=== PATIENT | male | born 1945 | race Caucasian/White ===

== ENCOUNTER 2020-09-02 07:36 | Inpatient (IN) ==
[2020-09-02] MEDS ORDERED: diphenhydrAMINE 50 MG/ML VIAL IV ONE (07:59)
[2020-09-02] MEDS ORDERED: morphine 4 MG/ML VIAL IV ONE (07:59)
[2020-09-02] MEDS ORDERED: 0.9 % SODIUM CHLORIDE 1,000 ML IV ONE ×2 (07:59→10:20)
[2020-09-02] MEDS ORDERED: PROCHLORPERAZINE 10 MG/2 ML VIAL IV ONE (07:59)
--- NOTE | 2020-09-02 08:30 | Emergency Department Note ---
Nausea/Vomiting/Diarrhea HPI General Chief complaint: Nausea/Vomiting/Diarrhea Stated complaint: Nausea/Vomiting x4 days Time Seen by Provider: 09/02/20 07:40 Source: patient and old records reviewed Mode of arrival: ambulatory Limitations: no limitations History of Present Illness HPI Narrative: Narrative: MD complaint: nausea, vomiting, diarrhea and abdominal pain Onset (ago): day(s) (4) Description of Vomiting: watery and bilious Description of Diarrhea: water Associated Abdominal Pain: Yes Location of pain: diffuse Severity: moderate Quality: cramping Consistency: colicky Improves with: none Worsens with: eating Associated symptoms: Reports cough Related Data Previous Rx's Medication Instructions Recorded meclizine 25 mg PO TIDP PRN #30 tab 09/10/15 levofloxacin 750 mg PO DAILY #5 tab 04/02/17 metronidazole 500 mg PO Q8 #15 tab 04/02/17 ondansetron HCl 4 mg PO Q4-6H PRN #20 tab 04/02/17 tamsulosin 0.4 mg PO QDAY #30 cap 04/02/17 Allergies Allergy/AdvReac Type Severity Reaction Status Date / Time No Known Drug Allergies Allergy Verified 03/31/17 13:22 Review of Systems ROS ROS Narrative: Narrative: Constitutional: Denies fever and chills Eyes: Denies vision change ENT ED: Denies ear pain and throat pain Cardiovascular: Denies chest pain and palpitations Respiratory: Reports cough; Denies shortness of breath Gastrointestinal: Reports abdominal pain, nausea, vomiting and diarrhea; Denies hematochezia, melena, hematemesis, acid reflux and heart burn Genitourinary: Denies dysuria and frequency Musculoskeletal: Denies back pain and joint swelling Integumentary: Denies rash and lesions Neurological: Denies headache and weakness Psychiatric: Denies anxiety and depression Endocrine: Denies fatigue and heat or cold intolerance Hematological/Lymphatic: Denies easy bleeding and easy bruising PFSH Narrative Patient History Narrative: Narrative: No alcohol tobacco or drug use Medical/Surgical/Family History All Active Problems (Updated 09/02/20 @ 11:35 by Mayito Chacko MD) Vertigo (Acute) Diverticulitis (Acute) Ureteral calculus, right (Acute) Acute renal insufficiency (Acute) Acute UTI (urinary tract infection) (Acute) Medical History (Updated 09/02/20 @ 11:35 by Mayito Chacko MD) Vertigo Social History Smoking Status: Never smoker Exam Narrative Narrative: Narrative: General Limitations: no limitations General appearance: Present alert and in no apparent distress Head Head: Present atraumatic and normocephalic Eye Eye: Present normal appearance, PERRL and EOMI; Absent scleral icterus and conjunctival injection ENT ENT: Present normal oropharynx and mucous membranes moist Neck Neck: Present trachea midline; Absent lymphadenopathy and thyromegaly Chest Chest: Present symmetric chest wall rise Respiratory Respiratory: Present normal lung sounds bilaterally; Absent respiratory distress, wheezes, stridor, accessory muscle use and prolonged expiratory phase Cardiovascular Cardiovascular: Present regular rate and normal rhythm; Absent systolic murmur and diastolic murmur Adbominal Abdominal: Present soft, tenderness and hypoactive bowel sounds; Absent distention, guarding, rebound, rigidity, organomegaly and mass Extremities Extremities: Present full ROM; Absent tenderness, pedal edema, pretibial edema and calf tenderness Back Back: Absent CVA tenderness (R), CVA tenderness (L) and spinous process tenderness Neurological Neurological: Present alert and oriented X3 Psychiatric Psychiatric: Present normal affect and normal mood Skin Skin: Present warm (WNL) and dry Course Vital Signs Vital signs: Vital Signs Temperature 98.1 F 09/02/20 07:36 Pulse Rate 88 09/02/20 07:36 Respiratory Rate 20 09/02/20 07:36 Blood Pressure 137/78 09/02/20 07:36 Pulse Oximetry (%) 99 09/02/20 07:36 Temperature 98.1 F 09/02/20 07:36 Pulse Rate 78 09/02/20 11:27 Respiratory Rate 16 09/02/20 10:49 Blood Pressure 148/74 09/02/20 11:18 Pulse Oximetry (%) 100 09/02/20 11:27 [facility] MDM Narrative Medical decision making narrative: Narrative: Patient's white count is elevated the patient has pyuria and will received IV fluids and IV antibiotics after blood cultures. Patient's renal CT shows bilateral hydronephrosis with multiple kidney stones consulted with urology who graciously agreed to evaluate the patient in the emergency department requested admission for IV hydration and will plan to procedure to remove stones discussed patient Dr. Rizo hospitalist who graciously agreed to admission diagnosis is nephro nephro nephrolithiasis and acute renal insufficiency. Differential Diagnosis Differential Diagnosis: Kidney stones, infected kidney stone, small bowel obstruction, large bowel, Lab Data Result diagrams: 09/02/20 08:28 09/02/20 08:28 Labs: Lab Results 09/02/20 09/02/20 09/02/20 Range/Units 08:28 08:28 08:49 WBC 18.3 H (4.5-11.0) K/mcL RBC 5.18 (4.50-5.90) M/mcL Hgb 14.9 (13.5-16.5) g/dL Hct 45.1 (41.0-55.0) % MCV 87.1 (80.0-100.0) fL MCH 28.8 (26.0-34.0) pg MCHC 33.0 (31.0-36.0) g/dL RDW 12.4 (11.5-14.5) % Plt Count 362 (140-440) K/mcL MPV 10.2 (7.4-10.4) fL Neut % (Auto) 88.5 H (38.0-78.0) % Lymph % (Auto) 5.1 L (15.0-49.0) % [place] % (Auto) 6.0 (1.0-12.0) % Eos % (Auto) 0.1 (0.0-7.0) % Baso % (Auto) 0.3 (0.0-2.0) % Lymph # (Auto) 0.93 L (1.50-4.80) K/mcL [place] # (Auto) 1.10 H (0.10-0.90) K/mcL Eos # (Auto) 0.01 (0.00-0.70) K/mcL Baso # (Auto) 0.05 (0.00-0.20) K/mcL Absolute Neutrophils 16.20 H (1.80-8.00) K/mcL Sodium 132 L (133-145) mmol/L Potassium 3.7 (3.3-5.1) mmol/L Chloride 95 L (96-108) mmol/L Carbon Dioxide 25 (22-30) mmol/L Anion Gap 12.0 (8.0-16.0) BUN 31 H (8-23) mg/dL Creatinine 2.0 H (0.7-1.2) mg/dL POC Creatinine 2.3 H (0.6-1.2) mg/dL GFR Calculation 32 Glucose 124 H (70-105) mg/dL Calcium 9.6 (8.6-10.4) mg/dL Total Bilirubin 2.0 H (0.1-1.0) mg/dL AST 24 (<40) U/L ALT 15 (<40) U/L Alkaline Phosphatase 87 (39-117) U/L Total Protein 8.2 (5.9-8.4) gm/dL Albumin 4.4 (3.2-5.2) gm/dL Globulin 3.8 H (2.2-3.7) gm/dL Albumin/Globulin Ratio 1.2 (1.0-2.3) Lipase 44 (7-60) U/L Urine Color Urine Appearance (Clear) Urine pH (5.0-9.0) Ur Specific [place] (1.000-1.035) Urine Protein (Negative) mg/dL Urine Glucose (UA) (Negative) mg/dL Urine Ketones (Negative) mg/dL Urine Occult Blood (Negative) mg/dL Urine Nitrate (Negative) Urine Bilirubin (Negative) mg/dL Urine Urobilinogen mg/dL Ur Leukocyte Esterase (Negative) /ug Urine RBC (0-3) /hpf Urine WBC (0-4) /hpf Ur Squamous Epith Cells (0-4) /hpf Urine Bacteria (0) /hpf Hyaline Casts (0-2) /lph Granular Casts (0-0) /lph Urine Mucus (None) /hpf Ur Culture Indicated? 09/02/20 Range/Units 10:10 WBC (4.5-11.0) K/mcL RBC (4.50-5.90) M/mcL Hgb (13.5-16.5) g/dL Hct (41.0-55.0) % MCV (80.0-100.0) fL MCH (26.0-34.0) pg MCHC (31.0-36.0) g/dL RDW (11.5-14.5) % Plt Count (140-440) K/mcL MPV (7.4-10.4) fL Neut % (Auto) (38.0-78.0) % Lymph % (Auto) (15.0-49.0) % [place] % (Auto) (1.0-12.0) % Eos % (Auto) (0.0-7.0) % Baso % (Auto) (0.0-2.0) % Lymph # (Auto) (1.50-4.80) K/mcL [place] # (Auto) (0.10-0.90) K/mcL Eos # (Auto) (0.00-0.70) K/mcL Baso # (Auto) (0.00-0.20) K/mcL Absolute Neutrophils (1.80-8.00) K/mcL Sodium (133-145) mmol/L Potassium (3.3-5.1) mmol/L Chloride (96-108) mmol/L Carbon Dioxide (22-30) mmol/L Anion Gap (8.0-16.0) BUN (8-23) mg/dL Creatinine (0.7-1.2) mg/dL POC Creatinine (0.6-1.2) mg/dL GFR Calculation Glucose (70-105) mg/dL Calcium (8.6-10.4) mg/dL Total Bilirubin (0.1-1.0) mg/dL AST (<40) U/L ALT (<40) U/L Alkaline Phosphatase (39-117) U/L Total Protein (5.9-8.4) gm/dL Albumin (3.2-5.2) gm/dL Globulin (2.2-3.7) gm/dL Albumin/Globulin Ratio (1.0-2.3) Lipase (7-60) U/L Urine Color Yellow Urine Appearance Cloudy A (Clear) Urine pH 5.0 (5.0-9.0) Ur Specific [place] 1.015 (1.000-1.035) Urine Protein 30 A (Negative) mg/dL Urine Glucose (UA) Negative (Negative) mg/dL Urine Ketones 5 A (Negative) mg/dL Urine Occult Blood >=1.0 A (Negative) mg/dL Urine Nitrate Negative (Negative) Urine Bilirubin Negative (Negative) mg/dL Urine Urobilinogen Negative mg/dL Ur Leukocyte Esterase 500 A (Negative) /ug Urine RBC 51 H (0-3) /hpf Urine WBC 125 H (0-4) /hpf Ur Squamous Epith Cells 0 (0-4) /hpf Urine Bacteria Few A (0) /hpf Hyaline Casts 12 H (0-2) /lph Granular Casts 2 H (0-0) /lph Urine Mucus Mod A (None) /hpf Ur Culture Indicated? yes Discharge Plan Patient/Caregiver Discharge Instructions Pt seen by ANALYTICS SPECIALIST/PA only: No Clinical Impression: Ureteral calculus, right, Acute renal insufficiency, Acute UTI (urinary tract infection) Patient Disposition: Xfer As Inpt ([facility]) Follow up with: Migdalia Lei ARNP [Primary Care Provider] - Prescriptions: No Action meclizine 25 MG Tablet 25 mg PO TIDP PRN (Reason: Vertigo) Qty: 30 RF: 0 hydrocodone-acetaminophen 1 TAB tablet 1 tab PO Q4HP PRN (Reason: Pain) Qty: 20 RF: 0 metronidazole 500 MG tablet 500 mg PO Q8 Qty: 15 RF: 0 tamsulosin 0.4 MG capsule 0.4 mg PO QDAY Qty: 30 RF: 0 levofloxacin 750 MG tablet 750 mg PO DAILY Qty: 5 RF: 0 ondansetron HCl 4 MG tablet 4 mg PO Q4-6H PRN (Reason: Nausea And Vomiting) Qty: 20 RF: 0
[2020-09-02 09:09] LABS: Basophils # (Auto) 0.05 K/mcL (0.00-0.20); Basophils % (Auto) 0.3 % (0.0-2.0); Eosinophils # (Auto) 0.01 K/mcL (0.00-0.70); Eosinophils % (Auto) 0.1 % (0.0-7.0); Hematocrit 45.1 % (41.0-55.0); Hemoglobin 14.9 g/dL (13.5-16.5); Lymphocytes # (Auto) 0.93 K/mcL (1.50-4.80); Lymphocytes % (Auto) 5.1 % (15.0-49.0); Mean Cell Volume 87.1 fL (80.0-100.0); Mean Platelet Volume 10.2 fL (7.4-10.4); Neutrophils % (Auto) 88.5 % (38.0-78.0); Platelet Count 362 K/mcL (140-440); RBC 5.18 M/mcL (4.50-5.90); Red Cell Distribution Width 12.4 % (11.5-14.5); WBC 18.3 K/mcL (4.5-11.0)
[2020-09-02 09:31] LABS: ALT/SGPT 15 U/L (<40); AST/SGOT 24 U/L (<40); Albumin 4.4 gm/dL (3.2-5.2); Albumin/Globulin Ratio 1.2 (1.0-2.3); Alkaline Phosphatase 87 U/L (39-117); Blood Urea Nitrogen 31 mg/dL (8-23); Calcium 9.6 mg/dL (8.6-10.4); Carbon Dioxide 25 mmol/L (22-30); Chloride 95 mmol/L (96-108); Globulin 3.8 gm/dL (2.2-3.7); Glomerular Filtration Rate 32; Glucose 124 mg/dL (70-105)
--- NOTE | 2020-09-02 09:41 | Cat Scan Report ---
History: Abdominal pain, nausea and vomiting TECHNIQUE: The patient was imaged without oral or intravenous contrast at 2.5 mm intervals from the lung bases through the symphysis pubis. Sagittal and coronal reformats were created. The radiation exposure was limited using dose reduction technology. FINDINGS: Heart size is upper limits of normal. There are scattered plaques in left anterior descending coronary artery. Band of scar or discoid atelectasis is present in the lateral basal segment right lower lobe. Evaluation of abdominal organs without contrast is somewhat limited. The liver and spleen are normal in size and appear homogeneous. No abnormality seen within the gallbladder or bile ducts. Pancreas appears normal without evidence of mass or inflammation. There is chronic hyperplasia left adrenal. Right adrenal is normal. Moderate hydronephrosis is present in the right kidney and there is mild hydronephrosis in the left knee. Two nonobstructing calyceal stones are present in the right kidney involving the middle and lower thirds. The larger measures 7 x 7 mm. A less than 1 mm calyceal stone is seen in the midportion of the left kidney. In the middle third of the right ureter there is a nonobstructing stone which measures 5 x 7 mm. A smaller stone is seen further distally in the right ureter and the prior CT done on 03/31/17. The hydronephrosis in the right kidney is nearly the same today as it was in 2017. The hydronephrosis in left kidney is new. There is an exophytic 1.8 cm cyst located laterally in the lower pole the left kidney. No cyst or mass are seen in the right kidney. There are no stones in left ureter. Within the bladder there are three calculi. One is located near the tip of the left ureterovesical junction and it measures 6 x 9 mm. There are two stones near the tip of the right ureterovesical junction. The larger measures 8 x 11 mm. Bladder is smooth contour without evidence of a mass. There is moderate enlargement of the prostate which limits the bladder from the floor the pelvis. Patient has chronic low-grade diverticulitis in the sigmoid colon with stranding of surrounding fat. The inflammation in and around the sigmoid is milder today than it was in 2017. There are air-fluid levels in the transverse and descending colon and small intestine is nondistended. The appendix is noninflamed. No abscess or ascites are present. Incidentally noted is a small fat-containing left inguinal hernia. IMPRESSION: Bilateral hydronephrosis, right worse than left. 5 x 7 mm obstructing stone in the middle third of the right ureter. 6 x 9 mm stone at the left ureterovesical junction which may have passed into the bladder. Chronic low-grade sigmoid diverticulitis Dr. Chacko was called with the report Interpreted and Authenticated by: Chad Mcbride 09/02/20
[2020-09-02] MEDS ORDERED: morphine 2 MG/ML VIAL IV ONE (10:18)
[2020-09-02] MEDS ORDERED: ONDANSETRON 4 MG/2 ML VIAL IV ONE (10:20)
[2020-09-02 11:03] LABS: Appearance,Urine CLOUDY (Clear); Bacteria,Urine FEW /hpf (0); Bilirubin,Urine Negative (Negative); Color,Urine YELLOW; Culture Indicated,Urine yes; Glucose,Urine (UA) Negative (Negative); Ketones,Urine 5 mg/dL (Negative); Leukocyte Esterase,Urine 500 /ug (Negative); Mucus,Urine MOD /hpf; Nitrate,Urine Negative (Negative); Protein,Urine 30 mg/dL (Negative); Specific Gravity,Urine 1.015 (1.000-1.035); Urine Blood >=1.0 mg/dL (Negative); Urine Granular Cast 2 /lph (0-0); Urine Hyaline Cast 12 /lph (0-2); Urine RBC 51 /hpf (0-3); Urine Squamous Epithelial Cell 0 /hpf (0-4); Urine WBC 125 /hpf (0-4); Urobilinogen,Urine Negative
[2020-09-02] MEDS ORDERED: cefTRIAXone 1 GM VIAL IV ONE (11:29)
[2020-09-02] MEDS ORDERED: ACETAMINOPHEN 325 MG TABLET PO PRN ×2 (11:59→13:03)
[2020-09-02] MEDS ORDERED: morphine 4 MG/ML VIAL IV PRN (11:59)
[2020-09-02] MEDS ORDERED: HYDROcodone/APAP 5/325MG TABLET PO PRN ×2 (11:59→13:03)
[2020-09-02] MEDS ORDERED: ONDANSETRON 4 MG/2 ML VIAL IV PRN ×2 (11:59→13:03)
[2020-09-02] MEDS ORDERED: cefTRIAXone 1 GM in DEXTROSE 5% IN WATER 50 ML IV SCH (12:00)
[2020-09-02] MEDS ORDERED: 0.9 % SODIUM CHLORIDE 1,000 ML IV SCH (12:00)
[2020-09-02] MEDS ORDERED: traZODone HCL 50 MG TABLET PO PRN ×2 (12:04→13:03)
--- NOTE | 2020-09-02 12:11 | Internal Med History&Physical ---
HPI History of Present Illness Patient information: Note initiated : 09/02/20 at 12:06 pm Service Date, if different from initiated Date: [] Patient: Jean Judge a 74 y/o M admitted on for N/V x 4 Days. Chief complaint: Nausea, vomiting, right/lower abdominal pain History of present illness: Mr. Judge is a 74 year old M who presents the ED with complaints of nausea vomiting and lower abdominal pain. History is obt ained speaking with the patient as well as reviewing old records. He has an underlying history of hypertension, hypercholesterolemia and nephrolithiasis (admitted here for obstructing nephrolithiasis 04/2017, did not require intervention). He states at 430 Sunday morning he developed nausea and vomiting. He has had vomiting and retching for up to 30 minutes at a time intermittently throughout t he day since then. Is been mostly stomach contents, no blood. He also feels bloated with lower abdominal pain, which is also into his right side radiating around to his back. Over the last few days he has felt lightheaded and progressively weak. During this time he has maintained urine output, is noticed no hematuria but his volume of urine has decreased. He may have felt a bit chilled, has had no fever. He notes he has had similar attacks to these a couple times a year since his hospitalization here back in April 2017. Because of ongoing symptoms he presents to the ED. He is found to have significant leukocytosis of 18,000, acute kidney injury with creatinine 2.0, normal lactate, bilateral hydronephrosis with obstructing ureteral stone on the right and a stone on the left to UVP. He also has noted bladder stones and other stones within the kidney that are nonobstructing. Urinalysis was notable for significant pyuria and hematuria with few bacteria. He was seen by urology and is now being admitted for further management of obstructive nephrolithiasis, possible urinary tract infection. Constitutional Constitutional: Present anorexia, chills (Possible chills), lethargy and weakness; Absent fever(s) and night sweats EENT Eyes: Absent blurry vision, change in vision and diplopia Nose, mouth and throat: Present sore throat (Attributed to frequent emesis); Absent headache(s) and nasal congestion Cardiovascular Cardiovascular: Absent chest pain, dyspnea on exertion and edema Respiratory Respiratory: Present cough (With occasional whitish phlegm) and dyspnea (Mild) Gastrointestinal Gastrointestinal: Present as per HPI; Absent hematochezia and melena Genitourinary Genitourinary: as per HPI Musculoskeletal Musculoskeletal: Present back pain (Right CVA region); Absent joint swelling Integumentary Integumentary: Absent rash and unusual bruising Neurological Neurological: Absent focal weakness, numbness, sensory deficit and tingling Psychiatric Psychiatric: Absent depression Endocrine Endocrine: Absent polydipsia and polyuria Hematologic/Lymphatic Hematologic/Lymphatic: Absent easy bleeding and easy bruising PFSH PFSH All Active Problems (Updated 09/02/20 @ 12:10 by Sommer Nix MD) Diverticulitis (Chronic) Hypercholesteremia (Chronic) Hypertension (Chronic) Ureteral calculus, right (Acute) Acute renal insufficiency (Acute) Acute UTI (urinary tract infection) (Acute) Medical History (Updated 09/02/20 @ 12:10 by Sommer Nix MD) Cataracts, bilateral Diverticulitis Hypercholesteremia Hypertension Rheumatic fever Surgical History (Updated 09/02/20 @ 12:08 by Sommer Nix MD) History of cataract surgery Family History (Updated 09/02/20 @ 12:13 by Sommer Nix MD) Brother Nephrolithiasis Social History (Updated 09/02/20 @ 12:13 by Sommer Nix MD) lives independently: Yes smoking status: Never smoker alcohol intake frequency: holiday/special occasion only MEDS/ALLERGIES Home Medications and Allergies Home Medications Medication Instructions Recorded Confirmed Type atorvastatin 10 mg PO QHS 09/02/20 09/02/20 History ondansetron HCl 4 mg PO Q6H PRN 09/02/20 09/02/20 History Allergies Allergy/AdvReac Type Severity Reaction Status Date / Time No Known Drug Allergies Allergy Verified 03/31/17 13:22 EXAM Constitutional Vitals: Temp Pulse Resp BP Pulse Ox 98.1 F 81 16 164/86 98 09/02/20 07:36 09/02/20 11:55 09/02/20 10:49 09/02/20 11:55 09/02/20 11:55 GENERAL: Alert, oriented, tired appearing, nontoxic. Cooperative, appears stated age. HEENT: Atraumatic. PERRL at 3 mm, conjunctiva clear, no scleral icterus. Hearing grossly intact. Oropharynx with moist mucous membranes, no pharyngeal erythema or exudate. Tongue midline. NECK: Supple without meningismus, no thyromegaly RESPIRATORY: Breath sounds clear bilaterally without wheezes or rhonchi. Respiratory effort is unlabored. CARDIOVASCULAR: Regular rate and rhythm, no murmur gallop or rub. No peripheral edema. Carotid pulses 2+ without bruit. GI: Abdomen soft, mild suprapubic tenderness with mild tenderness along the right > left flanks. No guarding or rebound. Bowel sounds are present. MUSCULOSKELETAL: No CVA tenderness. No joint erythema or swelling, normal range of motion in all extremities. SKIN: Intact, warm, dry. No lesions. Skin turgor normal. NEUROLOGIC: Cranial nerves II through XII grossly intact. Muscle mass normal. Strength 5/5 in the upper and lower extremities. Sensation intact to light touch bilaterally. PSYCHIATRIC: Alert, oriented x3, normal mood and affect, normal insight. DATA Data Completed and Pending Labs: Labs from last 24 hours 09/02/20 09/02/20 09/02/20 12:05 10:10 08:49 WBC RBC Hgb Hct MCV MCH MCHC RDW Plt Count MPV Neut % (Auto) Lymph % (Auto) [place] % (Auto) Eos % (Auto) Baso % (Auto) Lymph # (Auto) [place] # (Auto) Eos # (Auto) Baso # (Auto) Absolute Neutrophils VBG Lactic Acid Pending Sodium Potassium Chloride Carbon Dioxide Anion Gap BUN Creatinine POC Creatinine 2.3 H GFR Calculation Glucose Calcium Total Bilirubin AST ALT Alkaline Phosphatase Total Protein Albumin Globulin Albumin/Globulin Ratio Lipase Urine Color Yellow Urine Appearance Cloudy A Urine pH 5.0 Ur Specific [place] 1.015 Urine Protein 30 A Urine Glucose (UA) Negative Urine Ketones 5 A Urine Occult Blood >=1.0 A Urine Nitrate Negative Urine Bilirubin Negative Urine Urobilinogen Negative Ur Leukocyte Esterase 500 A Urine RBC 51 H Urine WBC 125 H Ur Squamous Epith Cells 0 Urine Bacteria Few A Hyaline Casts 12 H Granular Casts 2 H Urine Mucus Mod A Ur Culture Indicated? yes 09/02/20 09/02/20 08:28 08:28 WBC 18.3 H RBC 5.18 Hgb 14.9 Hct 45.1 MCV 87.1 MCH 28.8 MCHC 33.0 RDW 12.4 Plt Count 362 MPV 10.2 Neut % (Auto) 88.5 H Lymph % (Auto) 5.1 L [place] % (Auto) 6.0 Eos % (Auto) 0.1 Baso % (Auto) 0.3 Lymph # (Auto) 0.93 L [place] # (Auto) 1.10 H Eos # (Auto) 0.01 Baso # (Auto) 0.05 Absolute Neutrophils 16.20 H VBG Lactic Acid Sodium 132 L Potassium 3.7 Chloride 95 L Carbon Dioxide 25 Anion Gap 12.0 BUN 31 H Creatinine 2.0 H POC Creatinine GFR Calculation 32 Glucose 124 H Calcium 9.6 Total Bilirubin 2.0 H AST 24 ALT 15 Alkaline Phosphatase 87 Total Protein 8.2 Albumin 4.4 Globulin 3.8 H Albumin/Globulin Ratio 1.2 Lipase 44 Urine Color Urine Appearance Urine pH Ur Specific [place] Urine Protein Urine Glucose (UA) Urine Ketones Urine Occult Blood Urine Nitrate Urine Bilirubin Urine Urobilinogen Ur Leukocyte Esterase Urine RBC Urine WBC Ur Squamous Epith Cells Urine Bacteria Hyaline Casts Granular Casts Urine Mucus Ur Culture Indicated? Imaging and Cardiology CT scan - abdomen: Status: image reviewed by me Additional comments: IMPRESSION: Bilateral hydronephrosis, right worse than left. 5 x 7 mm obstructing stone in the middle third of the right ureter. 6 x 9 mm stone at the left ureterovesical junction which may have passed into the bladder. Chronic low-grade sigmoid diverticulitis A/P Narrative A/P Narrative: 74-year-old male history nephrolithiasis presents with nausea vomiting abdominal pain, acute kidney injury is found to have obstructing renal stones. Assessment: #Acute kidney injury: Suspect this is post renal renal failure due to right and left obstructing renal stones. May be component of prerenal as well with poor oral intake and ongoing nausea and vomiting -History of prior obstruction in 2017 -Seen by urology in the ED #Leukocytosis: May be secondary to stress, though cannot rule out upper tract infection with abnormal urinalysis and obstruction. No sepsis. #Possible urinary tract infection. Patient with significant pyuria and few bacteriuria. May be secondary to stones, cannot rule out upper tract infection #Hyponatremia: Possibly secondary to dehydration and decreased oral intake #Chronic diverticulitis: Patient with inflammatory changes in the sigmoid, going back to 2017. -His abdominal symptoms seem to be more consistent with renal stone than diverticulitis. -Exam without prominent lower quadrant tenderness Plan: * Hospitalization * Urology consult, called by the ED * Hydrate, follow renal function * Follow electrolytes * Tamsulosin to encourage spontaneous passage of stones * Cover with ceftriaxone possible urinary infection * Follow-up urine and blood cultures * Follow CBC Prophylaxis: Enoxaparin Full code
[2020-09-02] MEDS: morphine 4 MG/ML VIAL IV PRN ×2 (13:53→19:40)
[2020-09-02] MEDS ORDERED: 0.9 % SODIUM CHLORIDE 10 ML SYRINGE IV SCH (14:00)
[2020-09-02] MEDS: 0.9 % SODIUM CHLORIDE 1,000 ML IV SCH (14:01)
[2020-09-02] MEDS: 0.9 % SODIUM CHLORIDE 10 ML SYRINGE IV SCH ×2 (14:17→21:24)
[2020-09-02] MEDS ORDERED: TAMSULOSIN 0.4 MG CAPSULE PO ONE (15:53)
[2020-09-02] MEDS: DOCUSATE SODIUM 100 MG CAPSULE PO SCH (19:49)
[2020-09-02] MEDS ORDERED: FAMOTIDINE 20 MG TABLET PO SCH (21:00)
[2020-09-02] MEDS ORDERED: DOCUSATE SODIUM 100 MG CAPSULE PO SCH (21:00)
[2020-09-02] MEDS ORDERED: SENNOSIDES 1 TABLET PO SCH ×2 (21:00)
[2020-09-02] MEDS ORDERED: TAMSULOSIN 0.4 MG CAPSULE PO SCH (21:00)
[2020-09-02] MEDS: FAMOTIDINE 20 MG TABLET PO SCH (21:24)
[2020-09-03] MEDS: 0.9 % SODIUM CHLORIDE 1,000 ML IV SCH (00:10)
[2020-09-03] MEDS: 0.9 % SODIUM CHLORIDE 10 ML SYRINGE IV SCH (03:59)
[2020-09-03] MEDS: morphine 4 MG/ML VIAL IV PRN (06:25)
[2020-09-03 06:37] LABS: Basophils # (Auto) 0.04 K/mcL (0.00-0.20); Basophils % (Auto) 0.3 % (0.0-2.0); Eosinophils # (Auto) 0 K/mcL (0.00-0.70); Eosinophils % (Auto) 0 % (0.0-7.0); Hematocrit 37.5 % (41.0-55.0); Hemoglobin 12.3 g/dL (13.5-16.5); Lymphocytes # (Auto) 0.94 K/mcL (1.50-4.80); Mean Cell Volume 88.4 fL (80.0-100.0); Mean Corpuscular HGB Conc 32.8 g/dL (31.0-36.0); Mean Platelet Volume 9.8 fL (7.4-10.4); Monocytes % (Auto) 10.2 % (1.0-12.0); Neutrophils % (Auto) 81.5 % (38.0-78.0); Platelet Count 283 K/mcL (140-440); RBC 4.24 M/mcL (4.50-5.90); Red Cell Distribution Width 12.3 % (11.5-14.5); WBC 11.8 K/mcL (4.5-11.0)
[2020-09-03 07:04] LABS: ALT/SGPT 9 U/L (<40); AST/SGOT 17 U/L (<40); Albumin 3.2 gm/dL (3.2-5.2); Albumin/Globulin Ratio 1.1 (1.0-2.3); Alkaline Phosphatase 63 U/L (39-117); Bilirubin,Direct 0.2 mg/dL (<0.3); Bilirubin,Total 0.8 mg/dL (0.1-1.0); Blood Urea Nitrogen 25 mg/dL (8-23); Calcium 8.5 mg/dL (8.6-10.4); Carbon Dioxide 20 mmol/L (22-30); Chloride 104 mmol/L (96-108); Globulin 2.9 gm/dL (2.2-3.7); Glomerular Filtration Rate 42; Glucose 94 mg/dL (70-105); Lactate Dehydrogenase 185 U/L (135-225); Phosphorous 3.2 mg/dL (2.5-4.5); Triglycerides 77 mg/dL (<150); Uric Acid 6.7 mg/dL (2.5-8.0)
[2020-09-03] MEDS: DOCUSATE SODIUM 100 MG CAPSULE PO SCH (08:23)
[2020-09-03] MEDS: FAMOTIDINE 20 MG TABLET PO SCH (08:33)
[2020-09-03] MEDS ORDERED: cefTRIAXone 1 GM VIAL IV SCH (09:00)
[2020-09-03] MEDS ORDERED: ENOXAPARIN 40 MG/0.4 ML SYRINGE SQ SCH ×2 (09:00)
[2020-09-03] MEDS ORDERED: FLU VACC QS2020-21(6MOS UP)/PF 60 MCG/0.5 ML SYRINGE IM ONE (10:00)
[2020-09-03] MEDS ORDERED: cefTRIAXone 1 GM in DEXTROSE 5% IN WATER 50 ML IV SCH (12:00)
--- NOTE | 2020-09-03 13:06 | Discharge Summary ---
Discharge Provider Provider Patient information: Note initiated : 09/03/20 at 1:03 pm Service Date, if different from initiated Date: [] Patient: Jean Judge 74 y/o M admitted on 09/02/20 for N/V x 4 Days, found to have nephrolithiasis Date of admission: 09/02/20 12:42 Discharge date: 09/03/20 Primary care physician: Migdalia Lei Attending physician on admission: Sommer Nix Consults: 09/02/20 11:21 Consult to Physician [CONS] Stat Comment: Urology Consulting Provider: Agustin Taveras Reason For Exam: Physician to Consult 09/02/20 11:27 Consult to Physician [CONS] Stat Comment: Consulting Provider: Sommer Nix Reason For Exam: Physician to Consult Attending physician on discharge: Sommer Nxi Discharge Meds Discharge Medications Home Medications atorvastatin 10 mg PO QHS 09/02/20 [History Confirmed 09/02/20 Last Taken 08/29/20 08:00] ondansetron HCl 4 mg PO Q6H PRN #12 tab 09/03/20 [Rx Last Taken Unknown] tamsulosin 0.4 mg PO HS #30 cap 09/03/20 [Rx Last Taken Unknown] COURSE Hospital Course Hospital course: Presentation: Mr. Judge is a 74 year old M who presents the ED with complaints of nausea vomiting and lower abdominal pain. He has a history of nephrolithiasis (admitted here for obstructing nephrolithiasis 04/2017, did not require intervention). He states at 04:30 Sunday morning he developed nausea and vomiting. He has had vomiting and retching for up to 30 minutes at a time intermittently throughout the day since then. Is been mostly stomach contents, no blood. He also feels bloated with lower abdominal pain, which is also into his right side radiating around to his back. Over the last few days he has felt lightheaded and progressively weak. During this time he has maintained urine output, is noticed no hematuria but his volume of urine has decreased. He may have felt a bit chilled, has had no fever. He notes he has had similar attacks to these a couple times a year since his hospitalization here back in April 2017. Because of ongoing symptoms he presents to the ED. He is found to have significant leukocytosis of 18,000, acute kidney injury with creatinine 2.0, normal lactate, bilateral hydronephrosis with obstructing ureteral stone on the right and a stone on the left to UVP. He also has noted bladder stones and other stones within the kidney that are nonobstructing. Urinalysis was notable for significant pyuria and hematuria with few bacteria. He was seen by urology and is now being admitted for further management of obstructive nephrolithiasis, possible urinary tract infection. Course: Patient did well overnight and was feeling improved after fluids and tamsulosin. Urine was strained and he had not yet passed his stone. White count improved significantly and creatinine fell from 2.0-1.6. He was seen again by Dr. Taveras from urology the following morning. At this point given his improvement, including improvement in renal function, patient would like to try to push fluids and pass the stone on his own. He will be discharged continue tamsulosin and follow-up with Dr. Taveras in the clinic next week. If he has not yet been able to pass stone is still symptomatic he may require cystoscopy/ureteroscopy and stenting. Blood cultures were negative at 24 hours. Urine culture was <10k CFU/mL of a probable coag negative staph. He did receive ceftriaxone at admission, no further antibiotics were given at discharge. Patient evidence of chronic low-grade diverticular inflammation. This has been noticed previously. Clinically he did not have symptoms consistent with diverticulitis. Patient was admitted as an inpatient in anticipation of at least 2 midnights of hospitalization to care for his obstructive renal stone with possible UTI and acute kidney injury. He improved faster than anticipated and is being discharged home after only 1 midnight. Discharge diagnosis: Nephrolithiasis Time Spent with Patient Time attestation: Total time spent providing and/or coordinating discharge services: >30 min EXAM Constitutional Vitals: Temp Pulse Resp BP Pulse Ox 98.4 F 87 18 149/76 95 09/03/20 11:43 09/03/20 11:43 09/03/20 11:43 09/03/20 11:43 09/03/20 11:43 GENERAL: Sitting up in side of bed no acute distress RESPIRATORY: Clear bilaterally, unlabored respirations CARDIOVASCULAR: Regular rate and rhythm, no edema BACK: Minimal CVA discomfort with percussion ABDOMEN: Soft, minimal lower abdominal tenderness, nondistended, no rebound EXTREMITIES: Warm, perfused NEURO: Alert, oriented x3, ambulatory Discharge Data Data Completed and Pending Labs on day of discharge: Labs from last 24 hours 09/03/20 09/03/20 05:42 05:42 WBC 11.8 H RBC 4.24 L Hgb 12.3 L Hct 37.5 L MCV 88.4 MCH 29.0 MCHC 32.8 RDW 12.3 Plt Count 283 MPV 9.8 Neut % (Auto) 81.5 H Lymph % (Auto) 8.0 L [place] % (Auto) 10.2 Eos % (Auto) 0 Baso % (Auto) 0.3 Lymph # (Auto) 0.94 L [place] # (Auto) 1.20 H Eos # (Auto) 0 Baso # (Auto) 0.04 Absolute Neutrophils 9.62 H Sodium 136 Potassium 3.7 Chloride 104 Carbon Dioxide 20 L Anion Gap 12.0 BUN 25 H Creatinine 1.6 H GFR Calculation 42 Glucose 94 Uric Acid 6.7 Calcium 8.5 L Phosphorus 3.2 Magnesium 1.9 Total Bilirubin 0.8 Direct Bilirubin 0.2 GGT 11 AST 17 ALT 9 Alkaline Phosphatase 63 Lactate Dehydrogenase 185 Total Protein 6.1 Albumin 3.2 Globulin 2.9 Albumin/Globulin Ratio 1.1 Triglycerides 77 Preliminary micro results at discharge 09/02/20 12:25 Blood Culture - Preliminary Blood 09/02/20 12:09 Blood Culture - Preliminary Blood Impressions Impressions: CT scan - abdomen: Status: image reviewed by me Additional comments: IMPRESSION: Bilateral hydronephrosis, right worse than left. 5 x 7 mm obstructing stone in the middle third of the right ureter. 6 x 9 mm stone at the left ureterovesical junction which may have passed into the bladder. Chronic low-grade sigmoid diverticulitis Discharge Plan Patient/Caregiver Discharge Instructions Activity: increase activity as tolerated Diet: Regular Diet Activity Restrictions/Additional Instructions: Be sure to drink 6-8 glasses of fluid a day to maintain good urine output Prescriptions: New tamsulosin 0.4 mg Capsule 0.4 mg PO HS Qty: 30 RF: 0 Continued atorvastatin 10 mg Tablet 10 mg PO QHS RF: 0 ondansetron HCl 4 mg Tablet 4 mg PO Q6H PRN (Reason: Nausea) Qty: 12 RF: 0 Follow Up Plan Follow up with: Migdalia Lei ARNP [Primary Care Provider] - Jesus Owens MD [Physician] - 09/10/20 1:45 pm Patient Disposition: Home, Self-Care Prognosis: Good Overall status at discharge: patient is progressing back to baseline Discharge Orders: Discharge Order (Routine); Ordered 09/03/20 Ordered By: Sommer Nix
== END 2020-09-03 14:50 | disposition home or self-care (01) | DRG 694 ==
LOC: ED 07:36 → MERGE 12:42 → MEDSUR 12:42 → UNMERGE 12:42 → MEDSUR 12:45
PROVIDERS: ADMIT Internal Medicine; ATTEND Internal Medicine

== ENCOUNTER 2020-09-10 13:04 | Inpatient (IN) ==
[2020-09-10] MEDS ORDERED: 0.9 % SODIUM CHLORIDE 1,000 ML IV ONE ×2 (13:25→15:34)
[2020-09-10] MEDS ORDERED: diphenhydrAMINE 50 MG/ML VIAL IV ONE (13:25)
[2020-09-10] MEDS ORDERED: PROCHLORPERAZINE 10 MG/2 ML VIAL IV ONE (13:25)
[2020-09-10 13:44] LABS: POC Creatinine 4.3 mg/dL (0.6-1.2)
[2020-09-10] MEDS: morphine 2 MG/ML VIAL IV PRN ×2 (14:21→15:59)
[2020-09-10 14:23] LABS: Basophils # (Auto) 0.06 K/mcL (0.00-0.20); Basophils % (Auto) 0.5 % (0.0-2.0); Eosinophils # (Auto) 0.08 K/mcL (0.00-0.70); Eosinophils % (Auto) 0.7 % (0.0-7.0); Hematocrit 36.5 % (41.0-55.0); Hemoglobin 12.2 g/dL (13.5-16.5); Lymphocytes # (Auto) 1.47 K/mcL (1.50-4.80); Lymphocytes % (Auto) 13.1 % (15.0-49.0); Mean Cell Volume 85.7 fL (80.0-100.0); Mean Corpuscular HGB Conc 33.4 g/dL (31.0-36.0); Mean Platelet Volume 10.1 fL (7.4-10.4); Monocytes % (Auto) 8.9 % (1.0-12.0); Neutrophils % (Auto) 76.8 % (38.0-78.0); Platelet Count 375 K/mcL (140-440); RBC 4.26 M/mcL (4.50-5.90); Red Cell Distribution Width 12.7 % (11.5-14.5); WBC 11.2 K/mcL (4.5-11.0)
--- NOTE | 2020-09-10 14:49 | Emergency Department Note ---
Abdominal Pain HPI General Chief Complaint: Abdominal Pain Stated Complaint: abdominal pain Time Seen by Provider: 09/10/20 13:15 Source: patient, RN notes reviewed, old records reviewed and other Mode of arrival: ambulatory Limitations: no limitations History of Present Illness HPI Narrative: Narrative: 74-year-old male complaining of worsening abdominal pain. Patient was seen last week for acute renal insufficiency with nephrolithiasis and hydronephrosis. Received a urological procedure and was discharged. Over the last 2 days patient has been having increased abdominal distention and moderate abdominal p ain. He denies any fevers or chills, positive nausea no vomiting, positive hematuria and decreased urine output and constipation with decreased stool output. Complaint: abdominal pain Onset (ago): day(s) Consistency: colicky Location: diffuse Severity: moderate Quality: cramping, aching and dull Radiation: R flank Migration to: no migration Improves with: nothing Worsens with: nothing Related Data Home Medications Medication Instructions Recorded Confirmed atorvastatin 10 mg PO QHS 09/02/20 09/10/20 amlodipine 5 mg PO QDAY 09/10/20 09/10/20 losartan 100 mg PO QDAY 09/10/20 09/10/20 Previous Rx's Medication Instructions Recorded ondansetron HCl 4 mg PO Q6H PRN #12 tab 09/03/20 tamsulosin 0.4 mg PO HS #30 cap 09/03/20 Allergies Allergy/AdvReac Type Severity Reaction Status Date / Time No Known Drug Allergies Allergy Verified 09/10/20 13:06 Review of Systems ROS ROS Narrative: Narrative: Constitutional: Reports weakness; Denies fever and chills Eyes: Denies vision change ENT ED: Denies throat pain Cardiovascular: Denies chest pain Respiratory: Denies shortness of breath Gastrointestinal: Reports abdominal pain, nausea and constipation; Denies vomiting Genitourinary: Reports hematuria Musculoskeletal: Denies back pain Integumentary: Denies rash Neurological: Denies headache Psychiatric: Denies depression Endocrine: Denies fatigue Hematological/Lymphatic: Denies easy bruising Allergic/Immunologic: Denies urticaria PFSH Narrative Patient History Narrative: Narrative: Medical/Surgical/Family History All Active Problems (Updated 09/10/20 @ 15:45 by Mayito Chacko MD) Adynamic ileus (Acute) Diverticulitis (Chronic) Ureteral calculus, right (Acute) Acute renal insufficiency (Acute) Acute UTI (urinary tract infection) (Acute) Hypertension (Chronic) Hypercholesteremia (Chronic) Medical History Cataracts, bilateral Diverticulitis Hypercholesteremia Hypertension Rheumatic fever Surgical History History of cataract surgery Family History Brother Nephrolithiasis Social History Smoking Status: Never smoker Alcohol Intake Frequency: holiday/special occasion only Exam Narrative Narrative: Narrative: General Limitations: no limitations General appearance: Present alert and in no apparent distress Head Head: Present atraumatic and normocephalic Eye Eye: Present normal appearance, PERRL and EOMI ENT ENT: Present normal exam and mucous membranes moist Neck Neck: Present normal inspection and full ROM Chest Chest: Present normal inspection; Absent tenderness Respiratory Respiratory: Present normal lung sounds bilaterally; Absent respiratory distress Cardiovascular Cardiovascular: Present regular rate and normal rhythm; Absent systolic murmur Adbominal Abdominal: Present soft, distention, tenderness and hypoactive bowel sounds; Absent guarding and rebound Extremities Extremities: Present normal inspection and full ROM; Absent tenderness, pedal edema and pretibial edema Back Back: Present normal inspection; Absent CVA tenderness (R) and CVA tenderness (L) Neurological Neurological: Present alert and oriented X3 Psychiatric Psychiatric: Present normal affect and normal mood Skin Skin: Present warm (WNL); Absent rash Course Vital Signs Vital signs: Vital Signs Pulse Rate 94 H 09/10/20 13:04 Respiratory Rate 16 09/10/20 13:04 Blood Pressure 166/85 09/10/20 13:04 Pulse Oximetry (%) 96 09/10/20 13:04 Pulse Rate 81 09/10/20 14:46 Respiratory Rate 16 09/10/20 13:04 Blood Pressure 162/81 09/10/20 14:46 Pulse Oximetry (%) 100 09/10/20 14:46 MDM MDM Narrative Medical decision making narrative: Narrative: Kidney stone, urinary retention, small bowel obstruction, large bowel obstruction, ileus, acute on chronic renal insufficiency. Medical Records Medical records reviewed: Yes I reviewed the patient's medical records. Lab Data Lab results reviewed: Yes I reviewed the patient's lab results. Result diagrams: 09/10/20 13:25 09/10/20 13:25 Labs: Lab Results 09/10/20 09/10/20 Range/Units 13:25 13:25 WBC 11.2 H (4.5-11.0) K/mcL RBC 4.26 L (4.50-5.90) M/mcL Hgb 12.2 L (13.5-16.5) g/dL Hct 36.5 L (41.0-55.0) % MCV 85.7 (80.0-100.0) fL MCH 28.6 (26.0-34.0) pg MCHC 33.4 (31.0-36.0) g/dL RDW 12.7 (11.5-14.5) % Plt Count 375 (140-440) K/mcL MPV 10.1 (7.4-10.4) fL Neut % (Auto) 76.8 (38.0-78.0) % Lymph % (Auto) 13.1 L (15.0-49.0) % [place] % (Auto) 8.9 (1.0-12.0) % Eos % (Auto) 0.7 (0.0-7.0) % Baso % (Auto) 0.5 (0.0-2.0) % Lymph # (Auto) 1.47 L (1.50-4.80) K/mcL [place] # (Auto) 1.00 H (0.10-0.90) K/mcL Eos # (Auto) 0.08 (0.00-0.70) K/mcL Baso # (Auto) 0.06 (0.00-0.20) K/mcL Absolute Neutrophils 8.59 H (1.80-8.00) K/mcL Sodium 138 (133-145) mmol/L Potassium 2.5 L* (3.3-5.1) mmol/L Chloride 102 (96-108) mmol/L Carbon Dioxide 23 (22-30) mmol/L Anion Gap 13.0 (8.0-16.0) BUN 25 H (8-23) mg/dL Creatinine 4.0 H (0.7-1.2) mg/dL POC Creatinine 4.3 H (0.6-1.2) mg/dL GFR Calculation 14 Glucose 110 H (70-105) mg/dL Calcium 8.6 (8.6-10.4) mg/dL Total Bilirubin 0.5 (0.1-1.0) mg/dL AST 26 (<40) U/L ALT 26 (<40) U/L Alkaline Phosphatase 82 (39-117) U/L Total Protein 6.6 (5.9-8.4) gm/dL Albumin 3.9 (3.2-5.2) gm/dL Globulin 2.7 (2.2-3.7) gm/dL Albumin/Globulin Ratio 1.4 (1.0-2.3) Lipase 51 (7-60) U/L Radiology Data Radiology results reviewed: Yes I reviewed the patient's radiology results. 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
[2020-09-10 14:51] LABS: ALT/SGPT 26 U/L (<40); AST/SGOT 26 U/L (<40); Albumin 3.9 gm/dL (3.2-5.2); Albumin/Globulin Ratio 1.4 (1.0-2.3); Alkaline Phosphatase 82 U/L (39-117); Bilirubin,Total 0.5 mg/dL (0.1-1.0); Blood Urea Nitrogen 25 mg/dL (8-23); Calcium 8.6 mg/dL (8.6-10.4); Carbon Dioxide 23 mmol/L (22-30); Chloride 102 mmol/L (96-108); Globulin 2.7 gm/dL (2.2-3.7); Glomerular Filtration Rate 14; Glucose 110 mg/dL (70-105)
--- NOTE | 2020-09-10 15:15 | Cat Scan Report ---
CLINICAL INFORMATION: Abdominal pain and distention COMPARISON: Abdomen and pelvic CT without contrast 09/02/2020 TECHNIQUE: 0.625 mm helical slices were obtained from the mid heart through the subtrochanteric regions. Following reconstruction, 2.5 mm sagittal, coronal and axial reformatted images were processed and reviewed at bone and soft tissue windows.The exam was performed using radiation dose optimization techniques including, but not limited to, automated exposure control, adjustment of the mA and/or kV according to patient size and use of iterative reconstruction technique. FINDINGS: Lung bases show a new small left pleural effusion. Subsegmental atelectasis and fibrosis present in both in the visualized lower lobes, lingula and right middle lobe. The heart is mildly enlarged, but unchanged. Abdominal images show the noncontrasted liver, gallbladder and bile ducts, both adrenal glands, spleen, pancreas and aorta are normal in size, configuration and attenuation without focal lesion. There are two nonobstructing stones inferior calyces of the right kidney: 3 mm and [address], approximately one week ago, there was a 5 mm stone in the mid right ureter at the iliac crossing. This stone has passed, however there is moderate residual right hydronephrosis/hydroureter likely related to distal ureteral edema or spasm. On the left side, there was previously a 5 mm stone at the UVJ. This stone has also passed. Persistent mild left hydroureter/hydronephrosis is presumably related to edema at the UVJ. Within the bladder, there are three stones ranging between seven and 10 mm. Prostate is mildly enlarged. The seminal vesicles are normal. There is no free air, free fluid or adenopathy. Stomach and small bowel are grossly normal. Moderate colonic dilatation to the mid sigmoid level with decompression of the distal sigmoid and rectum. This pattern is more striking than on the prior examination. No definite mass or other abnormality seen in the transition point between the dilated and normal caliber colon. Small left inguinal hernia contains only mesenteric fat. Bone windows show no osseous abnormality IMPRESSION: 1. Interval passage of 5 mm mid right ureteral stone since the abdominal CT one week prior. Mild residual right hydroureter/hydronephrosis likely is related to UVJ edema and spasm. 2. Passage of a left UVJ stone since the abdomen and pelvic CT one week prior. Mild residual left hydroureter/hydronephrosis related UVJ spasm and edema. Three stones are present in the urinary bladder base ranging between seven and 11 mm 3. Moderate colonic dilatation to the mid sigmoid level. A similar pattern was seen on prior exam, but it is more striking on today's exam. It is still more likely atypical ileus than a distal colonic obstruction. There is no definite mass, stricture or other pathology at the level of transition point. Consider Hypaque enema to ensure the absence of obstructing lesion in the mid sigmoid colon. It may be also useful and colonic cleansing 4. Small left pleural effusion - new. 5. Small left inguinal hernia containing only mesenteric fat. Interpreted and Authenticated by: Didier Maddox 09/10/20
[2020-09-10] MEDS ORDERED: IPRATROPIUM/ALBUTEROL 3 ML AMPUL.NEB NEB ONE (15:51)
--- NOTE | 2020-09-10 16:26 | Internal Med History&Physical ---
HPI History of Present Illness Patient information: Note initiated : 09/10/20 at 4:26 pm Service Date, if different from initiated Date: [] Patient: Jean Judge a 74 y/o M admitted on for Abdominal Pain . Chief Complaint: Diarrhea, abdominal pain, weakness History of present illness: Mr. Judge is a 74 year old M with recent hospitalization for obstructive uropathy. He was discharged on 09/03 . Shortly after discharge patient started experiencing abdominal distention with associated pain and dirrhea. Symptoms persisted for the next few days with worsening nausea and pain. He presents today for evaluation. Patient work-up was consistent with acute kidney injury creatinine over 4 and potassium 2.5. Nephrology was consulted. Noncontrast abdominal CT scan consistent distended bowel but resolution of obstructive uropathy with interval passage of stones. Patient was started on crystalloids. NG was placed. Subsequently hospitalist service was consulted for above symptoms. At the time of my evaluation patient is very anxious. He endorses to symptoms above. Describes pain 6-7 out of 10 feels worse with eating. Denies history of significant fever. Patient dysuria or hematuria. Denies fever chills, chest pain or shortness of breath. He appears very uncomfortable distended abdomen. Review of systems Review system was performed and is negative except as discussed above PFSH PFSH All Active Problems (Updated 09/10/20 @ 17:12 by Yfn George MD) Acute kidney injury with acute tubular necrosis (Acute) Bilateral hydronephrosis (Acute) Hypokalemia (Acute) Adynamic ileus (Acute) Diverticulitis (Chronic) Ureteral calculus, right (Acute) Acute renal insufficiency (Acute) Acute UTI (urinary tract infection) (Acute) Hypertension (Chronic) Hypercholesteremia (Chronic) Medical History Cataracts, bilateral Diverticulitis Hypercholesteremia Hypertension Rheumatic fever Surgical History History of cataract surgery Family History Brother Nephrolithiasis Social History (System 09/09/20 @ 09:36 by Julia Baptiste) lives independently: Yes smoking status: Never smoker alcohol intake frequency: holiday/special occasion only MEDS/ALLERGIES Home Medications and Allergies Home Medications Medication Instructions Recorded Confirmed Type atorvastatin 10 mg PO QHS 09/02/20 09/10/20 History ondansetron HCl 4 mg PO Q6H PRN #12 tab 09/03/20 09/10/20 Rx tamsulosin 0.4 mg PO HS #30 cap 09/03/20 09/10/20 Rx amlodipine 5 mg PO QDAY 09/10/20 09/10/20 History losartan 100 mg PO QDAY 09/10/20 09/10/20 History Allergies Allergy/AdvReac Type Severity Reaction Status Date / Time No Known Drug Allergies Allergy Verified 09/10/20 13:06 EXAM Constitutional Vitals: Pulse Resp BP Pulse Ox 81 16 162/81 100 09/10/20 14:46 09/10/20 13:04 09/10/20 14:46 09/10/20 14:46 Anxious Head normocephalic Oral cavity moist NG tube No ear nose discharge Eye movement symmetrical Neck supple no lymphadenopathy S1-S2 regular Nonlabored breathing Distended abdomen tender to palpation Lower extremity no cyanosis clubbing or joint swelling Skin no suspicious lesion Psych anxious but alert cooperative Neuro normal higher function DATA Data Completed and Pending Labs: Labs from last 24 hours 09/10/20 09/10/20 09/10/20 15:42 13:25 13:25 WBC 11.2 H RBC 4.26 L Hgb 12.2 L Hct 36.5 L MCV 85.7 MCH 28.6 MCHC 33.4 RDW 12.7 Plt Count 375 MPV 10.1 Neut % (Auto) 76.8 Lymph % (Auto) 13.1 L [place] % (Auto) 8.9 Eos % (Auto) 0.7 Baso % (Auto) 0.5 Lymph # (Auto) 1.47 L [place] # (Auto) 1.00 H Eos # (Auto) 0.08 Baso # (Auto) 0.06 Absolute Neutrophils 8.59 H Sodium 138 Potassium 2.5 L* Chloride 102 Carbon Dioxide 23 Anion Gap 13.0 BUN 25 H Creatinine 4.0 H POC Creatinine 4.3 H GFR Calculation 14 Glucose 110 H Calcium 8.6 Total Bilirubin 0.5 AST 26 ALT 26 Alkaline Phosphatase 82 Total Protein 6.6 Albumin 3.9 Globulin 2.7 Albumin/Globulin Ratio 1.4 Lipase 51 Urine Color Pending Urine Appearance Pending Urine pH Pending Ur Specific [place] Pending Urine Protein Pending Urine Glucose (UA) Pending Urine Ketones Pending Urine Occult Blood Pending Urine Nitrate Pending Urine Bilirubin Pending Urine Urobilinogen Pending Ur Leukocyte Esterase Pending A/P Narrative A/P Narrative: 74-year-old male with recent history of nephrolithiasis/DIMITRI presents with worsening abdominal distention/nausea consistent with ileus and acute kidney injury. * Acute kidney injury: Patient secondary to volume depletion and concurrent NSAID use. CT nonobstructive neuropathy. Start crystalloids. Nephrology consulted. * Hypokalemia replacement per nephrology * Large bowel ileus versus obstruction -NG tube decompression/keep n.p.o./crystalloids and supportive management * Chronic diverticulitis: Patient with inflammatory changes in the sigmoid, going back to 2017. * History of hypertension as needed IV hydralazine, hold p.o. meds * HLD-home statin Plan: * Inpatient admission * NG tube decompression * Nephrology consult * Surgery consult Time Spent With Patient Time: Total time spent is greater than 50% in coordination of care (as documented) at patient's floor/unit and/or counseling patient:
--- NOTE | 2020-09-10 16:32 | Nephrology Consult Note ---
HPI Data of Consult Patient: new to practice Consult date: 09/10/20 Requesting physician: Mayito Chacko Primary Care Provider: Migdalia Lei Consult Narrative Patient Information: Note initiated : 09/10/20 at 4:28 pm Patient: Jean Judge 74 y/o M admitted on for Abdominal Pain . Chief Complaint: Abdominal pain Jean Márquez is a 74-year-old male with hypertension, nephrolithiasis, presented to ED on 09/10/20 for nausea without vomiting, decreased oral intake, abdominal pain with distention, diarrhea and decreased urine output since discharge from [facility] on 09/03/20. He was admitted to [facility] (09/02/20 to 09/03/20) for acute kidney injury due to bilateral hydronephrosis with right obstructing ureteral stone and left UVJ stone as well as bladder stones. In ED, work up was significant for worsening of acute kidney injury, hypokalemia and atypical ileus by CT. He is being admitted. Chief complaint: Abdominal pain Reason for consult: Acute kidney injury cc:: CC: Constitutional Constitutional: Present weakness; Absent fever(s) EENT Nose, mouth and throat: Absent nasal congestion and sore throat Cardiovascular Cardiovascular: Absent chest pain and palpatations Respiratory Respiratory: Absent dyspnea and wheezing Gastrointestinal Gastrointestinal: Present abdominal pain, diarrhea and nausea Genitourinary Additional comments: decreased urine output Musculoskeletal Musculoskeletal: Absent joint swelling Integumentary Integumentary: Absent rash and wounds Neurological Neurological: Present weakness; Absent focal weakness Psychiatric Psychiatric: Absent anxiety and panic attacks Endocrine Endocrine: Absent cold intolerance and heat intolerance Hematologic/Lymphatic Hematologic/Lymphatic: Absent easy bleeding Allergic/Immunologic Allergic/Immunologic: Absent tongue swelling and uticaria PFSH PFSH All Active Problems (Updated 09/10/20 @ 17:12 by Yfn George MD) Acute kidney injury with acute tubular necrosis (Acute) Bilateral hydronephrosis (Acute) Hypokalemia (Acute) Adynamic ileus (Acute) Diverticulitis (Chronic) Ureteral calculus, right (Acute) Acute renal insufficiency (Acute) Acute UTI (urinary tract infection) (Acute) Hypertension (Chronic) Hypercholesteremia (Chronic) Medical History Cataracts, bilateral Diverticulitis Hypercholesteremia Hypertension Rheumatic fever Surgical History History of cataract surgery Family History Brother Nephrolithiasis Social History (System 09/09/20 @ 09:36 by Julia Emile) lives independently: Yes smoking status: Never smoker alcohol intake frequency: holiday/special occasion only MEDS/ALLERGIES Home Medications and Allergies Home Medications Medication Instructions Recorded Confirmed Type atorvastatin 10 mg PO QHS 09/02/20 09/10/20 History ondansetron HCl 4 mg PO Q6H PRN #12 tab 09/03/20 09/10/20 Rx tamsulosin 0.4 mg PO HS #30 cap 09/03/20 09/10/20 Rx amlodipine 5 mg PO QDAY 09/10/20 09/10/20 History losartan 100 mg PO QDAY 09/10/20 09/10/20 History Allergies Allergy/AdvReac Type Severity Reaction Status Date / Time No Known Drug Allergies Allergy Verified 09/10/20 13:06 Physical Examination Vital Signs Vital signs: Pulse Resp BP Pulse Ox 81 16 162/81 100 09/10/20 14:46 09/10/20 13:04 09/10/20 14:46 09/10/20 14:46 General Appearance General appearance: well-developed, well-nourished and appears started age EENT EENT: mucous membranes moist Neck Neck: supple Respiratory Respiratory: clear Cardiovascular Cardiology: no edema, regular rate and regular rhythm Gastrointestinal Gastrointestinal: distended Integumentary Integumentary: no rash and warm and dry Neurologic Neurologic: no focal deficit and alert and oriented x3 Musculoskeletal Musculoskeletal: no deformities Psychiatric Psychiatric: mood/affect appropriate and cooperative Results Lab Results Result Diagrams: 09/10/20 13:25 09/10/20 13:25 Lab results: Most recent lab results Calcium 8.6 mg/dL (8.6-10.4) 09/10/20 13:25 A/P Assessment and plan (1) Acute kidney injury with acute tubular necrosis: Assessment and plan: Jean Márquez is a 74-year-old male with hypertension, nephrolithiasis, presented to ED on 09/10/20 for nausea without vomiting, decreased oral intake, abdominal pain with distention, diarrhea and decreased urine output since discharge from [facility] on 09/03/20. He was admitted to [facility] (09/02/20 to 09/03/20) for acute kidney injury due to bilateral hydronephrosis with right obstructing ureteral stone and left UVJ stone as well as bladder stones. In ED, work up was significant for worsening of acute kidney injury, hypokalemia and atypical ileus by CT. He is being admitted. Acute kidney injury, suspected acute tubular necrosis with hypokalemia associated with recent bilateral obstructive nephropathy and dehydration from diarrhea and decreased oral intake as well as NSAID use at home for pain, present on arrival. There is no recent history of IV contrast administration or NSAID use. Acute hypokalemia associated with diarrhea and postobstructive diuresis however he reports decreased urine output. Work up: Urinalysis on 09/10/20: Pending. CT Abdomen and Pelvis without contrast on 09/10/20: Interval passage of 5 mm mid right ureteral stone since the abdominal CT one week prior. Mild residual right hydroureter/hydronephrosis likely is related to UVJ edema and spasm. Passage of a left UVJ stone since the abdomen and pelvic CT one week prior. Mild residual left hydroureter/hydronephrosis related UVJ spasm and edema. Three stones are present in the urinary bladder base ranging between seven and 11 mm. Moderate colonic dilatation to the mid sigmoid level. A similar pattern was seen on prior exam, but it is more striking on today's exam. It is still more likely atypical ileus than a distal colonic obstruction. There is no definite mass, stricture or other pathology at the level of transition point. Consider Hypaque enema to ensure the absence of obstructing lesion in the mid sigmoid colon. It may be also useful and colonic cleansing. Small left pleural effusion - new. Small left inguinal hernia containing only mesenteric fat. Progress: Serum creatinine increased from 1.6 to 4.0 in the past 7 days. Baseline serum creatinine: 1.1 to 1.2 (eGFR 61-69). IVF: 1 l NS in ED. Urine output: 150 ml in ED. Hypokalemia. No fluid overload. No uremic symptoms. Recommendations/Plan: Agree with IV Potassium replacement. IV fluid changed from NS at 50 ml/hr to LR at 100 ml/hour. No urgent acute hemodialysis need. Hold KARO/ARB. Avoid NSAIDs, nephrotoxic medications and IV contrast. Monitor BMP and urine output. Status: Acute (2) Hypokalemia: Status: Acute (3) Bilateral hydronephrosis: Status: Acute Time Spent With Patient Time: Total time spent is greater than 50% in coordination of care (as documented) at patient's floor/unit and/or counseling patient:
[2020-09-10] MEDS ORDERED: LACTATED RINGERS 1,000 ML IV SCH (17:15)
[2020-09-10 17:31] LABS: Appearance,Urine Clear (Clear); Bacteria,Urine 0 /hpf (0); Bilirubin,Urine Negative (Negative); Color,Urine Yellow; Culture Indicated,Urine No; Glucose,Urine (UA) Negative (Negative); Ketones,Urine Negative (Negative); Leukocyte Esterase,Urine Negative /ug (Negative); Mucus,Urine Few /hpf; Nitrate,Urine Negative (Negative); Protein,Urine Negative (Negative); Specific Gravity,Urine > 1.030 (1.000-1.035); Urine Blood 3+(Large) ery/mcL (Negative); Urine RBC 16 /hpf (0-3); Urine Squamous Epithelial Cell 0 /hpf (0-4); Urine WBC 1 /hpf (0-4); Urobilinogen,Urine Normal
--- NOTE | 2020-09-10 17:38 | XRay Report ---
CLINICAL INFORMATION: NG placement COMPARISON: None. FINDINGS: NG tube overlies the GE junction. Moderate colonic dilatation unchanged. No free air. IMPRESSION: NG tube overlies the GE junction. Suggest advancing tube 10 cm. Again, suggest water soluble contrast enema in radiology to determine whether there is a distal colonic obstruction and tomosynthesis four colonic cleansing Interpreted and Authenticated by: Didier Maddox 09/10/20
[2020-09-10] MEDS ORDERED: BISACODYL 10 MG SUPP.RECT PR PRN (17:45)
[2020-09-10] MEDS ORDERED: ONDANSETRON 4 MG/2 ML VIAL IV PRN (17:45)
[2020-09-10] MEDS ORDERED: POLYETHYLENE GLYCOL 3350 17 GM PACKET PO PRN (17:45)
[2020-09-10] MEDS ORDERED: ACETAMINOPHEN 325 MG TABLET PO PRN (17:45)
[2020-09-10] MEDS ORDERED: MAGNESIUM HYDROXIDE 30 ML ORAL.SUSP PO PRN (17:45)
[2020-09-10] MEDS ORDERED: ONDANSETRON 4 MG ODT TABLET SL PRN (17:45)
[2020-09-10] MEDS ORDERED: POTASSIUM CHLORIDE 20 MEQ PACKET PO PRN (17:45)
[2020-09-10] MEDS ORDERED: ONDANSETRON HCL 4 MG PO PRN (17:45)
[2020-09-10] MEDS ORDERED: MELATONIN 3 MG TABLET PO PRN (17:45)
[2020-09-10] MEDS ORDERED: ACETAMINOPHEN 650 MG/65 ML BAG IV PRN (17:45)
[2020-09-10] MEDS ORDERED: MAGNESIUM SULFATE 2 GM/50 ML BAG IV PRN (17:45)
[2020-09-10] MEDS: LACTATED RINGERS 1,000 ML IV SCH (18:15)
[2020-09-10] MEDS: POTASSIUM CHLORIDE 20 MEQ/10 ML VIAL IV ONE ×2 (18:28→18:31)
[2020-09-10] MEDS: POTASSIUM CHLORIDE 40 MEQ in DEXTROSE 5% IN WATER 500 ML IV PRN (18:30)
[2020-09-10] MEDS ORDERED: MINERAL OIL 1 DOSE ENEMA PR ONE (20:37)
[2020-09-10] MEDS ORDERED: SENNOSIDES/DOCUSATE SODIUM 1 TAB TABLET PO SCH (21:00)
[2020-09-10] MEDS ORDERED: ATORVASTATIN 10 MG TABLET PO SCH (21:00)
[2020-09-10] MEDS ORDERED: TAMSULOSIN 0.4 MG CAPSULE PO SCH (21:00)
[2020-09-10] MEDS: DOCUSATE SODIUM 100 MG CAPSULE PO SCH (21:48)
[2020-09-10] MEDS: 0.9 % SODIUM CHLORIDE 10 ML SYRINGE IV SCH (21:48)
[2020-09-10] MEDS: HEPARIN 5,000 UNIT/ML VIAL SQ SCH (23:44)
[2020-09-11] MEDS: FLEETS ADULT ENEMA PR ONE ×2 (01:00→03:41)
[2020-09-11] MEDS: LACTATED RINGERS 1,000 ML IV SCH ×4 (05:13→23:06)
[2020-09-11] MEDS: 0.9 % SODIUM CHLORIDE 10 ML SYRINGE IV SCH ×3 (05:14→21:34)
[2020-09-11 06:23] LABS: Basophils # (Auto) 0.05 K/mcL (0.00-0.20); Basophils % (Auto) 0.5 % (0.0-2.0); Eosinophils # (Auto) 0.09 K/mcL (0.00-0.70); Eosinophils % (Auto) 0.9 % (0.0-7.0); Hematocrit 34.7 % (41.0-55.0); Hemoglobin 11.4 g/dL (13.5-16.5); Mean Cell Volume 87.6 fL (80.0-100.0); Mean Corpuscular HGB Conc 32.9 g/dL (31.0-36.0); Mean Platelet Volume 9.6 fL (7.4-10.4); Monocytes # (Auto) 0.83 K/mcL (0.10-0.90); Monocytes % (Auto) 8.3 % (1.0-12.0); Neutrophils % (Auto) 79.3 % (38.0-78.0); Platelet Count 359 K/mcL (140-440); RBC 3.96 M/mcL (4.50-5.90); Red Cell Distribution Width 12.7 % (11.5-14.5)
[2020-09-11 07:06] LABS: ALT/SGPT 19 U/L (<40); AST/SGOT 21 U/L (<40); Albumin 3.2 gm/dL (3.2-5.2); Albumin/Globulin Ratio 1.3 (1.0-2.3); Alkaline Phosphatase 61 U/L (39-117); Bilirubin,Direct < 0.2 mg/dL (0-0.3); Bilirubin,Total 0.5 mg/dL (0.1-1.0); Blood Urea Nitrogen 22 mg/dL (8-23); Calcium 7.9 mg/dL (8.6-10.4); Carbon Dioxide 24 mmol/L (22-30); Chloride 106 mmol/L (96-108); Globulin 2.5 gm/dL (2.2-3.7); Glomerular Filtration Rate 15; Glucose 96 mg/dL (70-105); Lactate Dehydrogenase 182 U/L (135-225); Phosphorous 3.4 mg/dL (2.5-4.5); Triglycerides 95 mg/dL (<150)
--- NOTE | 2020-09-11 07:22 | Nephrology Progress Note ---
SUBJECTIVE Subjective Patient information: Note initiated : 09/11/20 at 7:19 am Patient: Jean Judge 74 y/o M admitted on 09/10/20 for Abdominal Pain . Chief Complaint: Weakness Pertinent ROS: Constitutional: Present weakness; Absent fever(s) Nose, mouth and throat: Absent nasal congestion and sore throat Cardiovascular: Absent chest pain and palpitations Respiratory: Absent dyspnea and wheezing Gastrointestinal: NG tube, abdominal pain, distention, diarrhea and nausea Genitourinary: Decreased urine output Musculoskeletal: Absent joint swelling Integumentary: Absent rash and wounds Neurological: Present weakness; Absent focal weakness Psychiatric: Absent anxiety and panic attacks Endocrine: Absent cold intolerance and heat intolerance Hematologic/Lymphatic: Absent easy bleeding Allergic/Immunologic: Absent tongue swelling and urticaria Constitutional Vitals: Vital Signs Temp Pulse Resp BP Pulse Ox 98.2 F 73 24 H 150/76 93 09/11/20 04:00 09/11/20 05:09 09/11/20 05:09 09/11/20 05:00 09/11/20 05:09 Period Temp Pulse Resp BP Sys/Becerra Pulse Ox Last 24 Hr 97.9 F-98.2 F 69-94 13-30 129-172/62-106 91-100 Intake and Output 09/10/20 09/11/20 09/11/20 21:59 05:59 13:59 Intake Total 2190 1000 520 Output Total 330 250 Balance 1860 1000 270 Weight 180 lb 6.4 oz Intake & Output: Intake & Output 09/10/20 09/11/20 09/11/20 21:59 05:59 13:59 Intake Total 2190 1000 520 Output Total 330 250 Balance 1860 1000 270 Weight 180 lb 6.4 oz Intake: IV 5 1000 520 Sodium Chloride 0.9% 1,000 ml @ 2000 Wide Open IV BOLUS ONE Rx#: [id number] Lactated Ringers 1,000 ml @ 100 1000 mls/hr IV .Q10H LUMA Rx#: [id number] Potassium Chloride 40 Meq In 520 Dextrose 5% in Water 500 ml @ 130 mls/hr IV UD PRN Rx#: [id number] Oral 125 Output: Void Amount 330 250 Other: Urine Appearance Clear Urine Color Straw Light Barb Urine Odor Normal # Voids 1 Additional findings Additional findings: General appearance: well-developed, well-nourished and appears started age EENT: NG tube, mucous membranes moist Neck: supple Respiratory: clear Cardiology: no edema, regular rate and regular rhythm Gastrointestinal: distended Integumentary: no rash and warm and dry Neurologic: no focal deficit and alert and oriented x3 Musculoskeletal: no deformities Psychiatric: mood/affect appropriate and cooperative A/P Assessment and plan (1) Acute kidney injury with acute tubular necrosis: Assessment and plan: Jean Márquez is a 74-year-old male with hypertension, nephrolithiasis, presented to ED on 09/10/20 for nausea without vomiting, decreased oral intake, abdominal pain with distention, diarrhea and decreased urine output since discharge from [facility] on 09/03/20. He was admitted to [facility] (09/02/20 to 09/03/20) for acute kidney injury due to bilateral hydronephrosis with right obstructing ureteral stone and left UVJ stone as well as bladder stones. In ED, work up was significant for worsening of acute kidney injury, hypokalemia and atypical ileus by CT. He is being admitted. Acute kidney injury, suspected acute tubular necrosis with hypokalemia associat ed with recent bilateral obstructive nephropathy and dehydration from diarrhea and decreased oral intake as well as NSAID use at home for pain, present on arrival. There is no recent history of IV contrast administration or NSAID use. Acute hypokalemia associated with diarrhea and postobstructive diuresis however he reports decreased urine output. Work up: Urinalysis on 09/10/20: Yellow, Clear, pH 6.0, SG >1.030, protein negative, blood 3+, leukocyte esterase negative. CT Abdomen and Pelvis without contrast on 09/10/20: Interval passage of 5 mm mid right ureteral stone since the abdominal CT one week prior. Mild residual right hydroureter/hydronephrosis likely is related to UVJ edema and spasm. Passage of a left UVJ stone since the abdomen and pelvic CT one week prior. Mild residual left hydroureter/hydronephrosis related UVJ spasm and edema. Three stones are present in the urinary bladder base ranging between seven and 11 mm. Moderate colonic dilatation to the mid sigmoid level. A similar pattern was seen on prior exam, but it is more striking on today's exam. It is still more likely atypical ileus than a distal colonic obstruction. There is no definite mass, stricture or other pathology at the level of transition point. Consider Hypaque enema to ensure the absence of obstructing lesion in the mid sigmoid colon. It may be also useful and colonic cleansing. Small left pleural effusion - new. Small left inguinal hernia containing only mesenteric fat. Progress: Serum creatinine decreased from 4.0 to 3.7 in the past 16 days. Baseline serum creatinine: 1.1 to 1.2 (eGFR 61-69). IVF: LR at 100 ml/hr. Urine output: 600 ml reported in the past 12-16 hours. Hypokalemia, improved. No fluid overload. No uremic symptoms. Recommendations/Plan: Continue IV Potassium replacement. IV fluid LR at 100 ml/hour. No urgent acute hemodialysis need. Hold KARO/ARB. Avoid NSAIDs, nephrotoxic medications and IV contrast. Monitor BMP and urine output. Status: Acute (2) Hypokalemia: Status: Acute (3) Bilateral hydronephrosis: Status: Acute Time Spent With Patient Time: Total time spent is greater than 50% in coordination of care (as documented) at patient's floor/unit and/or counseling patient:
[2020-09-11] MEDS: DOCUSATE SODIUM 100 MG CAPSULE PO SCH (08:05)
[2020-09-11] MEDS: POTASSIUM CHLORIDE 40 MEQ in DEXTROSE 5% IN WATER 500 ML IV PRN ×2 (08:26→16:53)
--- NOTE | 2020-09-11 08:47 | Internal Med Progress Note ---
SUBJECTIVE Subjective Patient information: Note initiated : 09/11/20 at 8:44 am Service Date, if different from initiated Date: [] Patient: Jean Judge a 74 y/o M admitted on 09/10/20 for Abdominal Pain . Chief Complaint: Interval history: History of present illness: Mr. Judge is a 74 year old M with recent hospitalization for obstructive uropathy. He was discharged on 09/03 . Shortly after discharge patient started experiencing abdominal distention with associated pain and dirrhea. Symptoms persisted for the next few days with worsening nausea and pain. He presents today for evaluation. Patient work-up was consistent with acute kidney injury creatinine over 4 and potassium 2.5. Nephrology was consulted. Noncontrast abdominal CT scan consistent distended bowel but resolution of obstructive uropathy with interval passage of stones. Patient was started on crystalloids. NG was placed. Subsequently hospitalist service was consulted for above symptoms. At the time of my evaluation patient is very anxious. He endorses to symptoms above. Describes pain 6-7 out of 10 feels worse with eating. Denies history of significant fever. Patient dysuria or hematuria. Denies fever chills, chest pain or shortness of breath. He appears very uncomfortable distended abdomen. 09/11-patient stable overnight. NG output over 600 cc. Radiology recommends Hypaque enema/abdominal imaging to rule out obstruction. Surgery consulted. Potassium 2.8 on IV replacement. Creatinine down to 3.7. Nephrology on board. No overnight fever chills. Patient appears very uncomfortable with persistent distention Constitutional Vitals: Vital Signs Temp Pulse Resp BP Pulse Ox 98.5 F 65 22 162/80 95 09/11/20 08:00 09/11/20 08:00 09/11/20 08:00 09/11/20 08:00 09/11/20 08:00 Period Temp Pulse Resp BP Sys/Becerra Pulse Ox Last 24 Hr 97.9 F-98.5 F 65-94 13-30 129-172/62-106 91-100 Intake and Output 09/10/20 09/11/20 09/11/20 21:59 05:59 13:59 Intake Total 2190 1000 520 Output Total 330 250 Balance 1860 1000 270 Weight 81.828 kg Alert oriented Distended abdomen NG tube draining bilious output Very anxious Intake & Output: Intake & Output 09/10/20 09/11/20 09/11/20 21:59 05:59 13:59 Intake Total 2190 1000 520 Output Total 330 250 Balance 1860 1000 270 Weight 81.828 kg Intake: IV 2065 1000 520 Sodium Chloride 0.9% 1,000 ml @ 2000 Wide Open IV BOLUS ONE Rx#: [id number] Lactated Ringers 1,000 ml @ 100 1000 mls/hr IV .Q10H LUMA Rx#: [id number] Potassium Chloride 40 Meq In 520 Dextrose 5% in Water 500 ml @ 130 mls/hr IV UD PRN Rx#: [id number] Oral 125 Output: Void Amount 330 250 Other: Urine Appearance Clear Urine Color Straw Light Barb Urine Odor Normal # Voids 1 OBJ DATA Labs CBC & Chem 7: 09/11/20 05:00 09/11/20 04:59 Labs: Abnormal Lab Results 09/11/20 09/11/20 09/10/20 05:00 04:59 15:42 WBC RBC 3.96 L Hgb 11.4 L Hct 34.7 L Neut % (Auto) 79.3 H Lymph % (Auto) 11.0 L Lymph # (Auto) 1.10 L [place] # (Auto) Absolute Neutrophils Potassium 2.8 L* BUN Creatinine 3.7 H POC Creatinine Glucose Calcium 7.9 L Total Protein 5.7 L Urine Occult Blood 3+(large) A Urine RBC 16 H Urine Mucus Few A 09/10/20 09/10/20 13:25 13:25 WBC 11.2 H RBC 4.26 L Hgb 12.2 L Hct 36.5 L Neut % (Auto) Lymph % (Auto) 13.1 L Lymph # (Auto) 1.47 L [place] # (Auto) 1.00 H Absolute Neutrophils 8.59 H Potassium 2.5 L* BUN 25 H Creatinine 4.0 H POC Creatinine 4.3 H Glucose 110 H Calcium Total Protein Urine Occult Blood Urine RBC Urine Mucus Meds: Medications Acetaminophen (Acetaminophen 325 Mg Tablet) 650 mg PO Q4-6HP PRN; Protocol PRN Reason: Per Pain Protocol/Fever > 101 Amlodipine Besylate (Amlodipine 5 Mg Tablet) 5 mg PO QDAY [facility] Last Admin: 09/11/20 08:05 Dose: Not Given Documented by: Atorvastatin Calcium (Atorvastatin 10 Mg Tablet) 10 mg PO QHS [facility] Last Admin: 09/10/20 21:47 Dose: Not Given Documented by: Bisacodyl (Bisacodyl 10 Mg Supp.Rect) 10 mg ME Q2-3DAYS PRN PRN Reason: Constipation Docusate Sodium (Docusate Sodium 100 Mg Capsule) 100 mg PO BID [facility] Last Admin: 09/11/20 08:05 Dose: Not Given Documented by: Heparin Sodium (Porcine) (Heparin 5,000 Unit/Ml Vial) 5,000 unit SQ Q12 [facility] Last Admin: 09/10/20 23:44 Dose: 5,000 unit Documented by: Lactated Ringer's (Lactated Ringers) 1,000 mls @ 100 mls/hr IV .Q10H [facility] Last Admin: 09/11/20 05:13 Dose: 100 mls/hr Documented by: Potassium Chloride 40 meq/ (Dextrose) 520 mls @ 130 mls/hr IV UD PRN PRN Reason: K+ = or < 3.5 Last Admin: 09/11/20 08:26 Dose: 130 mls/hr Documented by: Acetaminophen (Ofirmev) 650 mg in 65 mls @ 130 mls/hr IV Q6HP PRN; Protocol PRN Reason: Per Pain Protocol/Fever > 101 Last Infusion: 09/10/20 19:59 Dose: Infused Documented by: Magnesium Sulfate (Magnesium Sulfate) 2 gm in 50 mls @ 50 mls/hr IV UD PRN PRN Reason: MG = or < 1.7 Magnesium Hydroxide (Magnesium Hydroxide 30 Ml Oral.Susp) 30 ml PO HSP PRN PRN Reason: Constipation Melatonin (Melatonin 3 Mg Tablet) 3 mg PO HSP PRN PRN Reason: Insomnia Ondansetron HCl (Ondansetron 4 Mg Odt Tablet) 4 mg SL Q4-6HP PRN; Protocol PRN Reason: Nausea And Vomiting Ondansetron HCl (Ondansetron 4 Mg/2 Ml Vial) 4 mg IV Q4-6HP PRN; Protocol PRN Reason: Nausea And Vomiting Last Admin: 09/10/20 18:26 Dose: 4 mg Documented by: Polyethylene Glycol (Polyethylene Glycol 3350 17 Gm Packet) 17 gm PO DAILYP PRN PRN Reason: Constipation Potassium Chloride (Potassium Chloride 20 Meq Packet) 40 meq PO DAILYP PRN PRN Reason: K+ < 3.5 Senna/Docusate Sodium (Sennosides/Docusate Sodium 1 Tab Tablet) 1 tab PO [facility] Last Admin: 09/10/20 21:47 Dose: Not Given Documented by: Sodium Chloride (0.9 % Sodium Chloride 10 Ml Syringe) 10 ml IV Q8 [facility] Last Admin: 09/11/20 05:14 Dose: Not Given Documented by: Tamsulosin HCl (Tamsulosin 0.4 Mg Capsule) 0.4 mg PO [facility] Last Admin: 09/10/20 21:48 Dose: Not Given Documented by: A/P Assessment and plan (1) Hypokalemia: Status: Acute (2) Bilateral hydronephrosis: Status: Acute Narrative A/P Narrative: 74-year-old male with recent history of nephrolithiasis/DIMITRI presents with worsening abdominal distention/nausea consistent with ileus and acute kidney injury. * Large bowel obstruction versus ileus-further imaging/surgery consult. * Abdominal pain secondary above on as needed opioids * Acute kidney injury: Patient secondary to volume depletion and concurrent NSAID use. CT nonobstructive neuropathy. Responding well to crystalloids. Creatinine down to 3.7.. * Hypokalemia on potassium replacement. Improved to 2.8. * History of chronic diverticulitis: Patient with inflammatory changes in the sigmoid, going back to 2017. * History of hypertension as needed IV hydralazine, hold p.o. meds * HLD-home statin Plan: * Surgery consult * Contrast imaging * Potassium replacement * Supportive management Time Spent With Patient Time: Total time spent is greater than 50% in coordination of care (as documented) at patient's floor/unit and/or counseling patient:
[2020-09-11] MEDS ORDERED: amLODIPine 5 MG TABLET PO SCH (09:00)
[2020-09-11] MEDS: HEPARIN 5,000 UNIT/ML VIAL SQ SCH ×2 (10:01→21:16)
--- NOTE | 2020-09-11 10:06 | General Surgery Consult Note ---
HPI Data of Consult Consult date: 09/11/20 Requesting physician: Ezekiel Sahu Primary Care Provider: Migdalia Lei Consult Narrative Patient Information: Note initiated : 09/11/20 at 10:05 am Service Date, if different from initiated Date: [] Patient: Jean Judge 74 y/o M admitted on 09/10/20 for Abdominal Pain . Chief Complaint: [Abdominal pain] History, this is a pleasant 74-year-old gentleman who presented with bilateral hydronephrosis approximately 1 week ago with an acute kidney injury secondary stones. He was treated appropriately and discharged home. He represented to the emergency room with complaint of abdominal distention and decreased amount of bowel movements. He reports that his abdomen is much more distended than what it normally is. He does report having a normal colonoscopy done approximately 15 years ago although we do not have records of that. He denies any nausea or vomiting. I was asked to see the patient secondary to colonic distention. Chief complaint: Abdominal pain, distention Reason for consult: Abdominal distention cc:: CC: Ezekiel Sahu Review of Systems Review of systems: All systems are reviewed, negative other than above. Constitutional Constitutional: Present as per HPI PFSH PFSH All Active Problems Acute kidney injury with acute tubular necrosis (Acute) Bilateral hydronephrosis (Acute) Hypokalemia (Acute) Adynamic ileus (Acute) Diverticulitis (Chronic) Ureteral calculus, right (Acute) Acute renal insufficiency (Acute) Acute UTI (urinary tract infection) (Acute) Hypertension (Chronic) Hypercholesteremia (Chronic) Medical History Cataracts, bilateral Diverticulitis Hypercholesteremia Hypertension Rheumatic fever Surgical History History of cataract surgery Family History Brother Nephrolithiasis Social History lives independently: Yes smoking status: Never smoker alcohol intake frequency: holiday/special occasion only MEDS/ALLERGIES Home Medications and Allergies Home Medications Medication Instructions Recorded Confirmed Type atorvastatin 10 mg PO QHS 09/02/20 09/10/20 History ondansetron HCl 4 mg PO Q6H PRN #12 tab 09/03/20 09/10/20 Rx tamsulosin 0.4 mg PO HS #30 cap 09/03/20 09/10/20 Rx amlodipine 5 mg PO QDAY 09/10/20 09/10/20 History losartan 100 mg PO QDAY 09/10/20 09/10/20 History Allergies Allergy/AdvReac Type Severity Reaction Status Date / Time No Known Drug Allergies Allergy Verified 09/10/20 13:06 Physical Examination Vital Signs Vital signs: Temp Pulse Resp BP Pulse Ox 98.5 F 65 22 162/80 95 09/11/20 08:00 09/11/20 08:00 09/11/20 08:00 09/11/20 08:00 09/11/20 08:00 General physical appearance General physical exam: well developed, well nourished and no distress Eyes Eye exam: PERRL and normal ocular movement ENT ENT exam: normal pinna, normal nares, normal mucosa, no hearing loss and no congestion Head Head exam IM: Present atraumatic and normocephalic Neck Neck exam: no masses, no bruits, trachea midline, no lymphadenopathy and no venous distension Cardiovascular Cardiovascular exam IM: Present normal rate and rhythm Respiratory Respiratory exam: normal expansion, normal respiratory effort, clear to percussion and clear to auscultation Abdomen Abdomen: Present non tender, bowel sounds and distended; Absent masses, guarding and rebound Hernia: Present none Genitourinary Genitourinary (Male): Present normal penis with no external lesions Rectum Rectum: Present normal sphincter tone, no hemorrhoids, no tenderness, no masses and no bleeding Integumentary Integumentary: Present no rash, no growths and no abnormal pigmentation Neurologic Neurologic: Present normal coordination and normal sensation Musculoskeletal Musculoskeletal: Present normal gait and normal posture Psychiatric Psychiatric: Present oriented to time, oriented to person, oriented to place, speech is normal and memory intact Results Labs Result diagrams: 09/11/20 05:00 09/11/20 04:59 Labs: Abnormal lab results 09/10/20 09/10/20 09/10/20 Range/Units 13:25 13:25 15:42 WBC 11.2 H (4.5-11.0) K/mcL RBC 4.26 L (4.50-5.90) M/mcL Hgb 12.2 L (13.5-16.5) g/dL Hct 36.5 L (41.0-55.0) % Neut % (Auto) (38.0-78.0) % Lymph % (Auto) 13.1 L (15.0-49.0) % Lymph # (Auto) 1.47 L (1.50-4.80) K/mcL Thayer # (Auto) 1.00 H (0.10-0.90) K/mcL Absolute Neutrophils 8.59 H (1.80-8.00) K/mcL Potassium 2.5 L* (3.3-5.1) mmol/L BUN 25 H (8-23) mg/dL Creatinine 4.0 H (0.7-1.2) mg/dL POC Creatinine 4.3 H (0.6-1.2) mg/dL Glucose 110 H (70-105) mg/dL Calcium (8.6-10.4) mg/dL Total Protein (5.9-8.4) gm/dL Urine Occult Blood 3+(large) A (Negative) say/mcL Urine RBC 16 H (0-3) /hpf Urine Mucus Few A (None) /hpf 09/11/20 09/11/20 Range/Units 04:59 05:00 WBC (4.5-11.0) K/mcL RBC 3.96 L (4.50-5.90) M/mcL Hgb 11.4 L (13.5-16.5) g/dL Hct 34.7 L (41.0-55.0) % Neut % (Auto) 79.3 H (38.0-78.0) % Lymph % (Auto) 11.0 L (15.0-49.0) % Lymph # (Auto) 1.10 L (1.50-4.80) K/mcL Thayer # (Auto) (0.10-0.90) K/mcL Absolute Neutrophils (1.80-8.00) K/mcL Potassium 2.8 L* (3.3-5.1) mmol/L BUN (8-23) mg/dL Creatinine 3.7 H (0.7-1.2) mg/dL POC Creatinine (0.6-1.2) mg/dL Glucose (70-105) mg/dL Calcium 7.9 L (8.6-10.4) mg/dL Total Protein 5.7 L (5.9-8.4) gm/dL Urine Occult Blood (Negative) say/mcL Urine RBC (0-3) /hpf Urine Mucus (None) /hpf Diabetes panel 09/10/20 09/11/20 Range/Units 13:25 04:59 Sodium 138 141 (133-145) mmol/L Potassium 2.5 L* 2.8 L* (3.3-5.1) mmol/L Chloride 102 106 (96-108) mmol/L Carbon Dioxide 23 24 (22-30) mmol/L BUN 25 H 22 (8-23) mg/dL Creatinine 4.0 H 3.7 H (0.7-1.2) mg/dL Glucose 110 H 96 (70-105) mg/dL Calcium 8.6 7.9 L (8.6-10.4) mg/dL AST 26 21 (<40) U/L ALT 26 19 (<40) U/L Alkaline Phosphatase 82 61 (39-117) U/L Total Protein 6.6 5.7 L (5.9-8.4) gm/dL Albumin 3.9 3.2 (3.2-5.2) gm/dL Triglycerides 95 (<150) mg/dL Calcium panel 09/10/20 09/11/20 Range/Units 13:25 04:59 Calcium 8.6 7.9 L (8.6-10.4) mg/dL Phosphorus 3.4 (2.5-4.5) mg/dL Albumin 3.9 3.2 (3.2-5.2) gm/dL Pituitary panel 09/10/20 09/11/20 Range/Units 13:25 04:59 Sodium 138 141 (133-145) mmol/L Potassium 2.5 L* 2.8 L* (3.3-5.1) mmol/L Chloride 102 106 (96-108) mmol/L Carbon Dioxide 23 24 (22-30) mmol/L BUN 25 H 22 (8-23) mg/dL Creatinine 4.0 H 3.7 H (0.7-1.2) mg/dL Glucose 110 H 96 (70-105) mg/dL Calcium 8.6 7.9 L (8.6-10.4) mg/dL Adrenal panel 09/10/20 09/11/20 Range/Units 13:25 04:59 Sodium 138 141 (133-145) mmol/L Potassium 2.5 L* 2.8 L* (3.3-5.1) mmol/L Chloride 102 106 (96-108) mmol/L Carbon Dioxide 23 24 (22-30) mmol/L BUN 25 H 22 (8-23) mg/dL Creatinine 4.0 H 3.7 H (0.7-1.2) mg/dL Glucose 110 H 96 (70-105) mg/dL Calcium 8.6 7.9 L (8.6-10.4) mg/dL Total Bilirubin 0.5 0.5 (0.1-1.0) mg/dL AST 26 21 (<40) U/L ALT 26 19 (<40) U/L Alkaline Phosphatase 82 61 (39-117) U/L Total Protein 6.6 5.7 L (5.9-8.4) gm/dL Albumin 3.9 3.2 (3.2-5.2) gm/dL All other labs normal. A/P Narrative A/P Narrative: This is a pleasant 74-year-old gentleman who presents with colonic distention with normal stomach and small bowel. Review of the CT scan shows distended cecum with less distended descending and sigmoid colon, no obvious masses, no obvious area of large bowel obstruction. 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 Would recommend c orrecting electrolytes, ambulation, colonic enema with radiology to verify no distal obstruction. Thank you very much for this consultation, I will continue to follow with you. Glenroy Weber MD, FACS [facility] General Surgery [phone] Time Spent With Patient Time: Total time spent is greater than 50% in coordination of care (as documented) at patient's floor/unit and/or counseling patient: Total time spent with greater than 50% in coordination of care (as documented) at patient's floor/unit and/or counseling patient:: 25 - 35 minutes
[2020-09-11] MEDS ORDERED: HYDROmorphone 0.5 MG/0.5 ML SYRINGE IV ONE (11:30)
--- NOTE | 2020-09-11 12:41 | XRay Report ---
CLINICAL INFORMATION: Abdominal pain and distention. Colon is dilated mid sigmoid level on recent abdominal CT COMPARISON: Abdomen and pelvic CT 09/10/2020 TECHNIQUE: Following cms expert imaging of the colon, water-soluble contrast was infused through indwelling rectal catheter and spot films were obtained. FINDINGS: A 4 cm annular lesion in the mid sigmoid colon results in high-grade distal colonic obstruction. The water-soluble contrast traverses this region slowly. The proximal sigmoid was filled but additional colonic filling was not performed for fear of inability to pass the contrast through this tight stricture region. IMPRESSION: 4 cm concentric annular lesion in the mid sigmoid colon resulting in high-grade partial colonic obstruction. It is highly suspicious for primary colon adenocarcinoma. Following surgical resection, the best staging imaging exam for this entity is CT PET Interpreted and Authenticated by: Didier Maddox 09/11/20
[2020-09-11] MEDS ORDERED: ceFAZolin 2 GM in DEXTROSE 5% IN WATER 50 ML IV SCH (14:15)
[2020-09-11] MEDS ORDERED: DEXAMETHASONE 10 MG/ML VIAL ONE (14:29)
[2020-09-11] MEDS ORDERED: PHENYLEPHRINE 10 MG/ML VIAL ONE (14:29)
[2020-09-11] MEDS ORDERED: fentaNYL 250 MCG/5 ML VIAL IV ONE (14:29)
[2020-09-11] MEDS ORDERED: ROPIVACAINE HCL/PF 30 ML VIAL IJ ONE (14:29)
[2020-09-11] MEDS ORDERED: GLYCOPYRROLATE 0.2 MG/ML VIAL IV ONE (14:29)
[2020-09-11] MEDS ORDERED: MAGNESIUM SULFATE 2 GM/50 ML BAG IV ONE (14:29)
[2020-09-11] MEDS ORDERED: PROPOFOL 200 MG/20 ML VIAL IV ONE (14:29)
[2020-09-11] MEDS ORDERED: ONDANSETRON 4 MG/2 ML VIAL ONE (14:29)
[2020-09-11] MEDS ORDERED: SUGAMMADEX SODIUM 200 MG/2 ML VIAL IV ONE (14:29)
[2020-09-11] MEDS ORDERED: ROCURONIUM 10 MG/ML ML IV ONE (14:29)
[2020-09-11] MEDS ORDERED: KETAMINE 100 MG/ML ML ONE (14:29)
[2020-09-11] MEDS ORDERED: SUCCINYLCHOLINE 20 MG/ML ML IV ONE (14:29)
[2020-09-11] MEDS ORDERED: HYDROmorphone 1 MG/ML SYRINGE ONE (14:29)
[2020-09-11] MEDS ORDERED: LIDOCAINE HCL/PF 100 MG/5 ML SYRINGE IV ONE (14:29)
[2020-09-11 14:36] LABS: POC Blood Urea Nitrogen 23 mg/dL (6-20); POC CO2 25 mmol/L (22-30); POC Chloride 105 mEq/L (96-108); POC Glucose, Random 118 mg/dL (70-105); POC Hematocrit 38 % (41-55); POC Sodium 141 mEq/L (133-145)
--- NOTE | 2020-09-11 15:45 | Operative Note ---
Brief Operative Note Date of procedure: 09/11/20 Pre-op diagnosis: Sigmoid obstruction Post-op diagnosis: same Procedure: Exploratory laparotomy, sigmoid colectomy, end ostomy Anesthesia: GETA Findings: Nearly complete sigmoid obstructing lesion Complications: none Surgeon: Glenroy Weber Estimated blood loss (cc): 100 Specimens Removed/Pathology: other (Sigmoid colon) Condition: stable Disposition: PACU Operative Note Operative Note: After risk benefits and alternatives to the procedure were discussed with the patient at length he verbalized understanding and desire to continue with the procedure. Patient was taken main operating place upon the operative table. General anesthesia was induced over endotracheal tube. Patient's prepped and draped in the standard sterile surgical fashion. Surgical timeout was taken to verify patient and procedure being performed. Midline incision was made carried down through skin and subcutaneous tissue. Abdominal cavity was entered and abdominal exploration was undertaken. There was completely decompressed small bowel, distended cecum transverse descending and the majority of sigmoid colon distention. Just proximal to the rectosigmoid junction there was a obstruction lesion which was densely adherent in the pelvis. All adhesions were carefully taken down with blunt and electrocautery dissection. A retrocolonic window was created with blunt dissection distal to the lesion and transected with the contour stapling device. The mesentery was taken down with LigaSure device and the colon was transected approximately 7 cm proximal to the obstructing lesion. The specimen was passed off the field for surgical pathology. Hemostasis was assured along the ligature line with interrupted 3-0 Vicryl sutures. The rectum was tagged with 2-0 Prolene sutures in the pelvis. Further exploration did not reveal any further pathology. Due to the size discrepancies between the rectum and the remainder of the colon decision was made to do a left-sided and sigmoid ostomy. An ostomy incision was made carried out through skin subtenons tissue. The fascia was opened in a cruciform fascia the rectus muscle was split and the ostomy hole was stretched to approximately 2 fingerbreadths. The end of the sigmoid was brought out through the ostomy site the abdominal cavity was once again explored, no further pathology was id entified in the midline laparotomy incision was closed with a running 0 PDS sutures. Skin was closed with surgical andrzej. The midline incision was covered and the ostomy was matured with interrupted 3-0 Vicryl sutures. Anoscopy appointment's was applied. Midline dressing consisting of Xeroform 4 x 4's and tape dressings were applied. Patient was then awakened from general anesthesia transferred postanesthesia care unit awake alert in good condition.
[2020-09-11] MEDS ORDERED: IPRATROPIUM/ALBUTEROL 3 ML AMPUL.NEB NEB PRN (15:52)
[2020-09-11] MEDS ORDERED: ONDANSETRON 4 MG/2 ML VIAL IV PRN ×2 (15:52→16:51)
[2020-09-11] MEDS ORDERED: ACETAMINOPHEN 1,000 MG/100 ML BAG IV ONE (15:52)
[2020-09-11] MEDS ORDERED: METHOCARBAMOL 1,000 MG/10 ML VIAL IV PRN (15:52)
[2020-09-11] MEDS ORDERED: METOPROLOL TARTRATE 5 MG/5 ML VIAL IV PRN (15:52)
[2020-09-11] MEDS ORDERED: LABETALOL 5 MG/ML ML IV PRN (15:52)
[2020-09-11] MEDS ORDERED: fentaNYL 100 MCG/2 ML VIAL IV PRN (15:52)
[2020-09-11] MEDS ORDERED: NALOXONE HCL 0.4 MG/ML VIAL IV PRN (15:52)
[2020-09-11] MEDS ORDERED: LACTATED RINGERS 250 ML IV PRN (15:52)
[2020-09-11] MEDS ORDERED: LACTATED RINGERS 1,000 ML IV SCH (16:00)
[2020-09-11] MEDS ORDERED: POTASSIUM CHLORIDE 40 MEQ in DEXTROSE 5% IN WATER 500 ML IV PRN (16:51)
[2020-09-11] MEDS ORDERED: MAGNESIUM SULFATE 2 GM/50 ML BAG IV PRN (16:51)
[2020-09-11] MEDS ORDERED: MELATONIN 3 MG TABLET PO PRN (16:51)
[2020-09-11] MEDS ORDERED: ACETAMINOPHEN 325 MG TABLET PO PRN (16:51)
[2020-09-11] MEDS: hydrALAZINE 20 MG/ML VIAL IV PRN (18:01)
[2020-09-11] MEDS: HYDROmorphone 0.5 MG/0.5 ML SYRINGE IV PRN ×2 (18:07→19:25)
[2020-09-11] MEDS ORDERED: hydrALAZINE 20 MG/ML VIAL IV SCH (20:00)
[2020-09-11] MEDS: ACETAMINOPHEN 650 MG/65 ML BAG IV PRN (20:16)
[2020-09-11] MEDS ORDERED: TAMSULOSIN 0.4 MG CAPSULE PO SCH (21:00)
[2020-09-11] MEDS ORDERED: ATORVASTATIN 10 MG TABLET PO SCH (21:00)
[2020-09-12] MEDS: HYDROmorphone 0.5 MG/0.5 ML SYRINGE IV PRN ×7 (05:07→23:32)
[2020-09-12] MEDS: 0.9 % SODIUM CHLORIDE 10 ML SYRINGE IV SCH ×4 (05:08→20:14)
[2020-09-12] MEDS: LACTATED RINGERS 1,000 ML IV SCH ×5 (06:08→23:33)
[2020-09-12 07:03] LABS: Basophils # (Auto) 0.02 K/mcL (0.00-0.20); Basophils % (Auto) 0.1 % (0.0-2.0); Eosinophils # (Auto) 0 K/mcL (0.00-0.70); Eosinophils % (Auto) 0 % (0.0-7.0); Hematocrit 35.1 % (41.0-55.0); Hemoglobin 11.4 g/dL (13.5-16.5); Lymphocytes # (Auto) 0.49 K/mcL (1.50-4.80); Lymphocytes % (Auto) 2.8 % (15.0-49.0); Mean Cell Volume 88.4 fL (80.0-100.0); Mean Corpuscular HGB Conc 32.5 g/dL (31.0-36.0); Mean Platelet Volume 9.8 fL (7.4-10.4); Monocytes # (Auto) 0.68 K/mcL (0.10-0.90); Monocytes % (Auto) 3.9 % (1.0-12.0); Neutrophils % (Auto) 93.2 % (38.0-78.0); Platelet Count 377 K/mcL (140-440); RBC 3.97 M/mcL (4.50-5.90); Red Cell Distribution Width 12.6 % (11.5-14.5); WBC 17.2 K/mcL (4.5-11.0)
[2020-09-12 07:16] LABS: ALT/SGPT 18 U/L (<40); AST/SGOT 24 U/L (<40); Albumin 3.4 gm/dL (3.2-5.2); Albumin/Globulin Ratio 1.4 (1.0-2.3); Alkaline Phosphatase 63 U/L (39-117); Bilirubin,Direct 0.2 mg/dL (<0.3); Bilirubin,Total 0.6 mg/dL (0.1-1.0); Blood Urea Nitrogen 20 mg/dL (8-23); Calcium 8.6 mg/dL (8.6-10.4); Carbon Dioxide 26 mmol/L (22-30); Chloride 105 mmol/L (96-108); Globulin 2.4 gm/dL (2.2-3.7); Glomerular Filtration Rate 20; Glucose 120 mg/dL (70-105); Lactate Dehydrogenase 205 U/L (135-225); Phosphorous 3.1 mg/dL (2.5-4.5); Triglycerides 66 mg/dL (<150); Uric Acid 6.9 mg/dL (2.5-8.0)
[2020-09-12] MEDS: hydrALAZINE 20 MG/ML VIAL IV PRN (07:39)
[2020-09-12] MEDS: amLODIPine 5 MG TABLET PO SCH ×2 (07:40→15:35)
[2020-09-12] MEDS: ACETAMINOPHEN 650 MG/65 ML BAG IV PRN (07:40)
--- NOTE | 2020-09-12 08:22 | Nephrology Progress Note ---
SUBJECTIVE Subjective Patient information: Note initiated : 09/12/20 at 8:20 am Patient: Jean Judge 74 y/o M admitted on 09/10/20 for Abdominal Pain . Chief Complaint: Weakness Pertinent ROS: Constitutional: Present weakness; Absent fever(s) Nose, mouth and throat: Absent nasal congestion and sore throat Cardiovascular: Absent chest pain and palpitations Respiratory: Absent dyspnea and wheezing Gastrointestinal: NG tube, abdominal pain, distention, diarrhea and nausea Genitourinary: Increased urine output Musculoskeletal: Absent joint swelling Integumentary: Absent rash and wounds Neurological: Present weakness; Absent focal weakness Psychiatric: Absent anxiety and panic attacks Endocrine: Absent cold intolerance and heat intolerance Hematologic/Lymphatic: Absent easy bleeding Allergic/Immunologic: Absent tongue swelling and urticaria Constitutional Vitals: Vital Signs Temp Pulse Resp BP Pulse Ox 99.6 F H 83 16 162/76 96 09/12/20 08:01 09/12/20 08:01 09/12/20 08:01 09/12/20 08:01 09/12/20 08:01 Period Temp Pulse Resp BP Sys/Becerra Pulse Ox Last 24 Hr 97.4 F-99.6 F 60-92 16-22 133-169/72-100 84-100 Intake and Output 09/11/20 09/12/20 09/12/20 20:59 05:59 13:59 Intake Total Output Total Balance Weight Intake & Output: Intake & Output 09/11/20 09/12/20 09/12/20 20:59 05:59 13:59 Intake Total Output Total Balance Weight Intake: IV Lactated Ringers 1,000 ml @ 100 mls/hr IV .Q10H LUMA Rx#: [id number] Potassium Chloride 40 Meq In Dextrose 5% in Water 500 ml @ 130 mls/hr IV UD PRN Rx#: [id number] Ancef 2 gm In Dextrose 5% in Water 50 ml @ 100 mls/hr IV PREOP LUMA Rx#:[id number] Oral IV - Manual Only Output: Gastric Drainage Right Nare Urine Catheter Amount Stool Other: Urine Appearance Uretheral (Hawkins) Clear Urine Color Uretheral (Hawkins) Bright Yellow Urine Odor Stool Size Stool Color Stool Consistency Additional findings Additional findings: General appearance: well-developed, well-nourished and appears started age EENT: NG tube, mucous membranes moist Neck: supple Respiratory: clear Cardiology: no edema, regular rate and regular rhythm Gastrointestinal: less distended Integumentary: no rash and warm and dry Neurologic: no focal deficit and alert and oriented x3 Musculoskeletal: no deformities Psychiatric: mood/affect appropriate and cooperative A/P Assessment and plan (1) Acute kidney injury with acute tubular necrosis: Assessment and plan: Jean Márquez is a 74-year-old male with hypertension, nephrolithiasis, presented to ED on 09/10/20 for nausea without vomiting, decreased oral intake, abdominal pain with distention, diarrhea and decreased urine output since discharge from [facility] on 09/03/20. He was admitted to [facility] (09/02/20 to 09/03/20) for acute kidney injury due to bilateral hydronephrosis with right obstructing ureteral stone and left UVJ stone as well as bladder stones. In ED, work up was significant for worsening of acute kidney injury, hypokalemia and atypical ileus by CT. He is being admitted. Acute kidney injury, suspected acute tubular necrosis with hypokalemia associated with recent bilateral obstructive nephropathy and dehydration from diarrhea and decreased oral intake as well as NSAID use at home for pain, present on arrival. There is no recent history of IV contrast administration or NSAID use. Acute hypokalemia associated with diarrhea and postobstructive diuresis however he reports decreased urine output. Work up: Urinalysis on 09/10/20: Yellow, Clear, pH 6.0, SG >1.030, protein negative, blood 3+, leukocyte esterase negative. CT Abdomen and Pelvis without contrast on 09/10/20: Interval passage of 5 mm mid right ureteral stone since the abdominal CT one week prior. Mild residual right hydroureter/hydronephrosis likely is related to UVJ edema and spasm. Passage of a left UVJ stone since the abdomen and pelvic CT one week prior. Mild residual left hydroureter/hydronephrosis related UVJ spasm and edema. Three stones are present in the urinary bladder base ranging between seven and 11 mm. Moderate colonic dilatation to the mid sigmoid level. A similar pattern was seen on prior exam, but it is more striking on today's exam. It is still more likely atypical ileus than a distal colonic obstruction. There is no definite mass, stricture or other pathology at the level of transition point. Consider Hypaque enema to ensure the absence of obstructing lesion in the mid sigmoid colon. It may be also useful and colonic cleansing. Small left pleural effusion - new. Small left inguinal hernia containing only mesenteric fat. Progress: Exploratory laparotomy, sigmoid colectomy, end ostomy for sigmoid obstruction on 09/11/20. Serum creatinine decreased from 3.7 to 3.0 in the past 24 hours. Baseline serum creatinine: 1.1 to 1.2 (eGFR 61-69). Urine output: 1,450 ml reported in the past 24 hours. Hypokalemia, resolved. No fluid overload. No uremic symptoms. Recommendations/Plan: Anticipate no acute hemodialysis need. Hold KARO/ARB. Avoid NSAIDs, nephrotoxic medications and IV contrast. Monitor BMP and urine output. Status: Acute (2) Hypokalemia: Status: Resolved (3) Bilateral hydronephrosis: Status: Resolved Time Spent With Patient Time: Total time spent is greater than 50% in coordination of care (as documented) at patient's floor/unit and/or counseling patient:
--- NOTE | 2020-09-12 08:55 | General Surgery Progress Note ---
SUBJECTIVE Subjective Patient information: Note initiated : 09/12/20 at 8:53 am Service Date, if different from initiated Date: [] Patient: Jean Judge 74 y/o M admitted on 09/10/20 for Abdominal Pain . Chief Complaint: [] Interval history: Postop day #1 status post exploratory laparotomy sigmoid colectomy with end ostomy for obstructing sigmoid mass. Patient is doing well this morning, feels less distended. Constitutional Vitals: Vital Signs Temp Pulse Resp BP Pulse Ox 99.6 F H 83 16 162/76 96 09/12/20 08:01 09/12/20 08:01 09/12/20 08:01 09/12/20 08:01 09/12/20 08:01 Period Temp Pulse Resp BP Sys/Becerra Pulse Ox Last 24 Hr 97.4 F-99.6 F 60-92 16-22 133-169/72-100 84-100 Intake and Output 09/11/20 09/12/20 09/12/20 20:59 05:59 13:59 Intake Total Output Total 300 Balance -300 Weight Intake & Output: Intake & Output 09/11/20 09/12/20 09/12/20 20:59 05:59 13:59 Intake Total Output Total 300 Balance -300 Weight Intake: IV Lactated Ringers 1,000 ml @ 100 mls/hr IV .Q10H LUMA Rx#: [id number] Potassium Chloride 40 Meq In Dextrose 5% in Water 500 ml @ 130 mls/hr IV UD PRN Rx#: [id number] Ancef 2 gm In Dextrose 5% in Water 50 ml @ 100 mls/hr IV PREOP LUMA Rx#:[id number] Oral IV - Manual Only Output: Gastric Drainage Right Nare Urine Catheter Amount Stool 300 Other: Urine Appearance Uretheral (Hawkins) Clear Urine Color Uretheral (Hawkins) Bright Yellow Urine Odor Stool Size Moderate Stool Color Brown Stool Consistency Liquid General appearance: cooperative and no acute distress GI/Abdominal GI/Abdominal exam: Present normal bowel sounds, soft, distended (Less distended) and tenderness (Appropriately tender to palpation) Additional comments: Ostomy with gas in the ostomy appliance, pink and intact. A/P Narrative A/P Narrative: Postop day #1 status post exploratory laparotomy, sigmoid colectomy with end ostomy. Progressing as expected. DC NG tube, clear liquid diet. Encourage ambulation. Glenroy Weber MD, FACS [facility] General Surgery [phone] Time Spent With Patient Time: Total time spent is greater than 50% in coordination of care (as documented) at patient's floor/unit and/or counseling patient:
[2020-09-12] MEDS: HEPARIN 5,000 UNIT/ML VIAL SQ SCH ×2 (08:58→19:31)
--- NOTE | 2020-09-12 12:28 | Internal Med Progress Note ---
SUBJECTIVE Subjective Patient information: Note initiated : 09/12/20 at 12:23 pm Service Date, if different from initiated Date: [] Patient: Jean Judge a 74 y/o M admitted on 09/10/20 for Abdominal Pain . Chief Complaint: [] Interval history: Interval history: History of present illness: Mr. Judge is a 74 year old M with recent hospitalization for obstructive uropathy. He was discharged on 09/03 . Shortly after discharge patient started experiencing abdominal distention with associated pain and dirrhea. Symptoms persisted for the next few days with worsening nausea and pain. He presents today for evaluation. Patient work-up was consistent with acute kidney injury creatinine over 4 and potassium 2.5. Nephrology was consulted. Noncontrast abdominal CT scan consistent distended bowel but resolution of obstructive uropathy with interval passage of stones. Patient was started on crystalloids. NG was placed. Subsequently hospitalist service was consulted for above symptoms. At the time of my evaluation patient is very anxious. He endorses to symptoms above. Describes pain 6-7 out of 10 feels worse with eating. Denies history of significant fever. Patient dysuria or hematuria. Denies fever chills, chest pain or shortness of breath. He appears very uncomfortable distended abdomen. 09/11-patient stable overnight. NG output over 600 cc. Radiology recommends Hypaque enema/abdominal imaging to rule out obstruction. Surgery consulted. Potassium 2.8 on IV replacement. Creatinine down to 3.7. Nephrology on board. No overnight fever chills. Patient appears very uncomfortable with persistent distention 09/12-patient postop day 1 status post expiratory laparotomy with sigmoid colectomy and ostomy placement. Managed per surgery. Adenocarcinoma noted on imaging. Await surgical pathology. Postop care as per surgery. Advancing diet and ostomy care as per surgery. White count 17.2 likely postop stress related, creatinine 3 down from 3.7. Improved potassium at 3.5 with aggressive replacement. Constitutional Vitals: Vital Signs Temp Pulse Resp BP Pulse Ox 97.3 F 83 20 157/76 99 09/12/20 12:04 09/12/20 08:01 09/12/20 12:04 09/12/20 12:04 09/12/20 12:04 Period Temp Pulse Resp BP Sys/Becerra Pulse Ox Last 24 Hr 97.3 F-99.6 F 76-92 16-20 133-169/72-100 84-100 Intake and Output 09/11/20 09/12/20 09/12/20 20:59 05:59 13:59 Intake Total 65 Output Total 950 Balance -885 Weight Alert oriented Nonlabored breathing Ostomy site stable. Ambulating No anxiety Intake & Output: Intake & Output 09/11/20 09/12/20 09/12/20 20:59 05:59 13:59 Intake Total 65 Output Total 950 Balance -885 Weight Intake: IV 65 Lactated Ringers 1,000 ml @ 100 mls/hr IV .Q10H [facility] Rx#: [id number] Potassium Chloride 40 Meq In Dextrose 5% in Water 500 ml @ 130 mls/hr IV UD PRN Rx#: [id number] Ancef 2 gm In Dextrose 5% in Water 50 ml @ 100 mls/hr IV PREOP [facility] Rx#:[id number] Oral IV - Manual Only Output: Gastric Drainage 350 Right Nare 350 Urine Catheter Amount 200 Stool 400 Other: Urine Appearance Clear Uretheral (Hawkins) Clear Urine Color Pale Uretheral (Hawkins) Bright Yellow Urine Odor Stool Size Moderate Stool Color Brown Stool Consistency Soft Liquid OBJ DATA Labs CBC & Chem 7: 09/12/20 05:11 09/12/20 05:11 Labs: Abnormal Lab Results 09/12/20 09/12/20 09/11/20 05:11 05:11 14:20 WBC 17.2 H RBC 3.97 L Hgb 11.4 L Hct 35.1 L POC Hct 38 L Neut % (Auto) 93.2 H Lymph % (Auto) 2.8 L Lymph # (Auto) 0.49 L [place] # (Auto) Absolute Neutrophils 16.03 H POC Potassium 3.0 L Potassium POC BUN 23 H BUN Creatinine 3.0 H POC Creatinine 5.0 H Glucose 120 H POC Glucose 118 H Calcium POC WB Ioniz Calcium 1.10 L Total Protein 5.8 L Urine Occult Blood Urine RBC Urine Mucus 09/11/20 09/11/20 09/10/20 05:00 04:59 15:42 WBC RBC 3.96 L Hgb 11.4 L Hct 34.7 L POC Hct Neut % (Auto) 79.3 H Lymph % (Auto) 11.0 L Lymph # (Auto) 1.10 L [place] # (Auto) Absolute Neutrophils POC Potassium Potassium 2.8 L* POC BUN BUN Creatinine 3.7 H POC Creatinine Glucose POC Glucose Calcium 7.9 L POC WB Ioniz Calcium Total Protein 5.7 L Urine Occult Blood 3+(large) A Urine RBC 16 H Urine Mucus Few A 09/10/20 09/10/20 13:25 13:25 WBC 11.2 H RBC 4.26 L Hgb 12.2 L Hct 36.5 L POC Hct Neut % (Auto) Lymph % (Auto) 13.1 L Lymph # (Auto) 1.47 L [place] # (Auto) 1.00 H Absolute Neutrophils 8.59 H POC Potassium Potassium 2.5 L* POC BUN BUN 25 H Creatinine 4.0 H POC Creatinine 4.3 H Glucose 110 H POC Glucose Calcium POC WB Ioniz Calcium Total Protein Urine Occult Blood Urine RBC Urine Mucus Meds: Medications Acetaminophen (Acetaminophen 325 Mg Tablet) 650 mg PO Q4-6HP PRN; Protocol PRN Reason: Per Pain Protocol/Fever > 101 Amlodipine Besylate (Amlodipine 5 Mg Tablet) 5 mg PO QDAY [facility] Last Admin: 09/12/20 07:40 Dose: Not Given Documented by: Atorvastatin Calcium (Atorvastatin 10 Mg Tablet) 10 mg PO QHS [facility] Last Admin: 09/11/20 21:06 Dose: Not Given Documented by: Heparin Sodium (Porcine) (Heparin 5,000 Unit/Ml Vial) 5,000 unit SQ Q12 [facility] Last Admin: 09/12/20 08:58 Dose: 5,000 unit Documented by: Hydralazine HCl (Hydralazine 20 Mg/Ml Vial) 10 mg IV Q4 PRN PRN Reason: Blood Pressure - High Last Admin: 09/12/20 07:39 Dose: 10 mg Documented by: Hydromorphone HCl (Hydromorphone 0.5 Mg/0.5 Ml Syringe) 0.5 mg IV Q15MIN PRN; Protocol PRN Reason: Per Pain Protocol Last Admin: 09/12/20 09:34 Dose: 0.5 mg Documented by: Acetaminophen (Ofirmev) 650 mg in 65 mls @ 130 mls/hr IV Q6HP PRN; Protocol PRN Reason: Per Pain Protocol/Fever > 101 Last Infusion: 09/12/20 09:35 Dose: Infused Documented by: Lactated Ringer's (Lactated Ringers) 1,000 mls @ 100 mls/hr IV .Q10H [facility] Last Admin: 09/12/20 06:08 Dose: Not Given Documented by: Magnesium Sulfate (Magnesium Sulfate) 2 gm in 50 mls @ 50 mls/hr IV UD PRN PRN Reason: MG = or < 1.7 Last Infusion: 09/11/20 21:16 Dose: Infused Documented by: Potassium Chloride 40 meq/ (Dextrose) 520 mls @ 130 mls/hr IV UD PRN PRN Reason: K+ = or < 3.5 Last Admin: 09/12/20 08:57 Dose: 130 mls/hr Documented by: Melatonin (Melatonin 3 Mg Tablet) 3 mg PO HSP PRN PRN Reason: Insomnia Ondansetron HCl (Ondansetron 4 Mg/2 Ml Vial) 4 mg IV Q4-6HP PRN; Protocol PRN Reason: Nausea And Vomiting Sodium Chloride (0.9 % Sodium Chloride 10 Ml Syringe) 10 ml IV Q8 [facility] Last Admin: 09/12/20 05:08 Dose: 10 ml Documented by: Tamsulosin HCl (Tamsulosin 0.4 Mg Capsule) 0.4 mg PO HS [facility] Last Admin: 09/11/20 21:06 Dose: Not Given Documented by: A/P Narrative A/P Narrative: 74-year-old male with recent history of nephrolithiasis/DIMITRI presents with worsening abdominal distention/nausea consistent with ileus and acute kidney injury. 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 Ongoing care per surgery. Await surgical pathology. * Acute kidney injury: Gradual improvement noted, creatinine down to 3, nephrology on board * Runs of V. tach last night status post potassium magnesium replacement. Brief episode lasting 30 seconds. * Hypokalemia -clinically improved potassium now 3.5 post ablation. * History of hypertension as needed IV hydralazine, hold p.o. meds * HLD-home statin Plan: * Postop care per surgery * Electrolyte replacement * Supportive management * Diet advancement per surgery * Therapies as tolerated Time Spent With Patient Time: Total time spent is greater than 50% in coordination of care (as documented) at patient's floor/unit and/or counseling patient:
[2020-09-12] MEDS ORDERED: HYDROmorphone 0.5 MG/0.5 ML SYRINGE IV PRN (13:45)
[2020-09-12] MEDS ORDERED: MAGNESIUM SULFATE 2 GM/50 ML BAG IV PRN (17:20)
[2020-09-12] MEDS ORDERED: ACETAMINOPHEN 325 MG TABLET PO PRN (17:20)
[2020-09-12] MEDS ORDERED: ONDANSETRON 4 MG/2 ML VIAL IV PRN (17:20)
[2020-09-12] MEDS ORDERED: ACETAMINOPHEN 650 MG/65 ML BAG IV PRN (17:20)
[2020-09-12] MEDS ORDERED: HYDROmorphone 0.5 MG/0.5 ML SYRINGE ONE (18:24)
[2020-09-12] MEDS: ATORVASTATIN 10 MG TABLET PO SCH (19:31)
[2020-09-12] MEDS: TAMSULOSIN 0.4 MG CAPSULE PO SCH (19:31)
[2020-09-13] MEDS: HYDROmorphone 0.5 MG/0.5 ML SYRINGE IV PRN ×10 (01:29→23:56)
[2020-09-13] MEDS: LACTATED RINGERS 1,000 ML IV SCH ×5 (03:32→23:55)
[2020-09-13] MEDS: 0.9 % SODIUM CHLORIDE 10 ML SYRINGE IV SCH ×3 (05:27→20:02)
[2020-09-13 06:30] LABS: Basophils # (Auto) 0.05 K/mcL (0.00-0.20); Basophils % (Auto) 0.3 % (0.0-2.0); Eosinophils # (Auto) 0.04 K/mcL (0.00-0.70); Eosinophils % (Auto) 0.2 % (0.0-7.0); Hematocrit 32.6 % (41.0-55.0); Hemoglobin 10.7 g/dL (13.5-16.5); Lymphocytes # (Auto) 1.21 K/mcL (1.50-4.80); Lymphocytes % (Auto) 7.5 % (15.0-49.0); Mean Cell Volume 87.9 fL (80.0-100.0); Mean Corpuscular HGB Conc 32.8 g/dL (31.0-36.0); Mean Platelet Volume 9.5 fL (7.4-10.4); Monocytes # (Auto) 1.09 K/mcL (0.10-0.90); Monocytes % (Auto) 6.7 % (1.0-12.0); Neutrophils % (Auto) 85.3 % (38.0-78.0); Platelet Count 353 K/mcL (140-440); RBC 3.71 M/mcL (4.50-5.90); Red Cell Distribution Width 12.9 % (11.5-14.5); WBC 16.2 K/mcL (4.5-11.0)
[2020-09-13 07:09] LABS: ALT/SGPT 14 U/L (<40); AST/SGOT 24 U/L (<40); Albumin 3.1 gm/dL (3.2-5.2); Albumin/Globulin Ratio 1.3 (1.0-2.3); Alkaline Phosphatase 57 U/L (39-117); Bilirubin,Direct < 0.2 mg/dL (0-0.3); Bilirubin,Total 0.4 mg/dL (0.1-1.0); Blood Urea Nitrogen 19 mg/dL (8-23); Calcium 8.1 mg/dL (8.6-10.4); Carbon Dioxide 24 mmol/L (22-30); Chloride 102 mmol/L (96-108); Globulin 2.4 gm/dL (2.2-3.7); Glomerular Filtration Rate 27; Glucose 101 mg/dL (70-105); Lactate Dehydrogenase 228 U/L (135-225); Phosphorous 2.5 mg/dL (2.5-4.5); Triglycerides 95 mg/dL (<150); Uric Acid 6.7 mg/dL (2.5-8.0)
--- NOTE | 2020-09-13 07:22 | Nephrology Progress Note ---
SUBJECTIVE Subjective Patient information: Note initiated : 09/13/20 at 7:20 am Patient: Jean Judge 74 y/o M admitted on 09/10/20 for Abdominal Pain . Chief Complaint: Weakness Pertinent ROS: Constitutional: Present weakness; Absent fever(s) Nose, mouth and throat: Absent nasal congestion and sore throat Cardiovascular: Absent chest pain and palpitations Respiratory: Absent dyspnea and wheezing Gastrointestinal: NG tube, abdominal pain, distention, diarrhea and nausea Genitourinary: Increased urine output Musculoskeletal: Absent joint swelling Integumentary: Absent rash and wounds Neurological: Present weakness; Absent focal weakness Psychiatric: Absent anxiety and panic attacks Endocrine: Absent cold intolerance and heat intolerance Hematologic/Lymphatic: Absent easy bleeding Allergic/Immunologic: Absent tongue swelling and urticaria Constitutional Vitals: Vital Signs Temp Pulse Resp BP Pulse Ox 98.0 F 84 20 170/76 96 09/13/20 03:20 09/13/20 03:20 09/13/20 03:20 09/13/20 03:20 09/13/20 03:20 Period Temp Pulse Resp BP Sys/Becerra Pulse Ox Last 24 Hr 97.3 F-99.6 F 80-96 16-26 128-170/63-86 91-99 Intake and Output 09/12/20 09/13/20 09/13/20 21:59 05:59 13:59 Intake Total 1300 Output Total 1030 1225 Balance -1030 75 Weight 186 lb 3.2 oz Intake & Output: Intake & Output 09/12/20 09/13/20 09/13/20 21:59 05:59 13:59 Intake Total 1300 Output Total 1030 1225 Balance -1030 75 Weight 186 lb 3.2 oz Intake: IV 900 Lactated Ringers 1,000 ml @ 100 900 mls/hr IV .Q10H [facility] Rx#: [id number] Oral 400 Output: Void Amount 480 675 Stool 550 550 Other: Stool Size Moderate Stool Color Brown Stool Consistency Soft Liquid # Voids 1 Additional findings Additional findings: General appearance: well-developed, well-nourished and appears started age EENT: NG tube, mucous membranes moist Neck: supple Respiratory: clear Cardiology: no edema, regular rate and regular rhythm Gastrointestinal: less distended Integumentary: no rash and warm and dry Neurologic: no focal deficit and alert and oriented x3 Musculoskeletal: no deformities Psychiatric: mood/affect appropriate and cooperative A/P Assessment and plan (1) Acute kidney injury with acute tubular necrosis: Assessment and plan: Jean Márquez is a 74-year-old male with hypertension, nephrolithiasis, presented to ED on 09/10/20 for nausea without vomiting, decreased oral intake, abdominal pain with distention, diarrhea and decreased urine output since discharge from [facility] on 09/03/20. He was admitted to [facility] (09/02/20 to 09/03/20) for acute kidney injury due to bilateral hydronephrosis with right obstructing ureteral stone and left UVJ stone as well as bladder stones. In ED, work up was significant for worsening of acute kidney injury, hypokalemia and atypical ileus by CT. He is being admitted. Acute kidney injury, suspected acute tubular necrosis with hypokalemia associated with recent bilateral obstructive nephropathy and dehydration from diarrhea and decreased oral intake as well as NSAID use at home for pain, present on arrival. There is no recent history of IV contrast administration or NSAID use. Acute hypokalemia associated with diarrhea and postobstructive diuresis. Work up: Urinalysis on 09/10/20: Yellow, Clear, pH 6.0, SG >1.030, protein negative, blood 3+, leukocyte esterase negative. CT Abdomen and Pelvis without contrast on 09/10/20: Interval passage of 5 mm mid right ureteral stone since the abdominal CT one week prior. Mild residual right hydroureter/hydronephrosis likely is related to UVJ edema and spasm. Passage of a left UVJ stone since the abdomen and pelvic CT one week prior. Mild residual left hydroureter/hydronephrosis related UVJ spasm and edema. Three stones are p resent in the urinary bladder base ranging between seven and 11 mm. Moderate colonic dilatation to the mid sigmoid level. A similar pattern was seen on prior exam, but it is more striking on today's exam. It is still more likely atypical ileus than a distal colonic obstruction. There is no definite mass, stricture or other pathology at the level of transition point. Consider Hypaque enema to ensure the absence of obstructing lesion in the mid sigmoid colon. It may be also useful and colonic cleansing. Small left pleural effusion - new. Small left inguinal hernia containing only mesenteric fat. Progress: Exploratory laparotomy, sigmoid colectomy, end ostomy for sigmoid obstruction on 09/11/20. Serum creatinine decreased from 3.0 to 2.3 in the past 24 hours. Baseline serum creatinine: 1.1 to 1.2 (eGFR 61-69). Urine output: 1,655 ml reported in the past 24 hours. Hypokalemia. associated with ostomy output, being replaced. No fluid overload. No uremic symptoms. Recommendations/Plan: Anticipate no acute hemodialysis need. Nephrology will sign off. Status: Acute (2) Hypokalemia: Status: Resolved (3) Bilateral hydronephrosis: Status: Resolved Time Spent With Patient Time: Total time spent is greater than 50% in coordination of care (as documented) at patient's floor/unit and/or counseling patient:
[2020-09-13] MEDS ORDERED: POTASSIUM CHLORIDE 20 MEQ TABLET PO ONE (07:50)
--- NOTE | 2020-09-13 08:14 | General Surgery Progress Note ---
SUBJECTIVE Subjective Patient information: Note initiated : 09/13/20 at 8:12 am Service Date, if different from initiated Date: [] Patient: Jean Judge 74 y/o M admitted on 09/10/20 for Abdominal Pain . Chief Complaint: [] Interval history: Postop day #2 status post exploratory laparotomy, sigmoid colectomy with end ostomy for obstructing sigmoid lesion. Patiently is currently ambulating, tolerating a regular diet with good return of bowel function. Pain control still somewhat of an issue. Constitutional Vitals: Vital Signs Temp Pulse Resp BP Pulse Ox 98.7 F 78 18 157/73 94 09/13/20 07:46 09/13/20 07:46 09/13/20 07:46 09/13/20 07:46 09/13/20 07:46 Period Temp Pulse Resp BP Sys/Becerra Pulse Ox Last 24 Hr 97.3 F-99.2 F 78-96 18-26 128-170/63-86 91-99 Intake and Output 09/12/20 09/13/20 09/13/20 21:59 05:59 13:59 Intake Total 1300 Output Total 1030 1225 Balance -1030 75 Weight 186 lb 3.2 oz Intake & Output: Intake & Output 09/12/20 09/13/20 09/13/20 21:59 05:59 13:59 Intake Total 1300 Output Total 1030 1225 Balance -1030 75 Weight 186 lb 3.2 oz Intake: IV 900 Lactated Ringers 1,000 ml @ 100 900 mls/hr IV .Q10H [facility] Rx#: [id number] Oral 400 Output: Void Amount 480 675 Stool 550 550 Other: Stool Size Moderate Stool Color Brown Stool Consistency Soft Liquid # Voids 1 1 General appearance: cooperative and no acute distress GI/Abdominal GI/Abdominal exam: Present soft and tenderness (Appropriately tender to palpation); Absent distended Additional comments: Ostomy is functioning A/P Narrative A/P Narrative: Postop day #2 status post exploratory laparotomy, sigmoid colectomy with end ostomy. Would restart all p.o. outpatient medications. Would switch to p.o. pain medication. Once pain is adequately controlled patient is clear for discharge from a surgical standpoint. Follow-up with me in 1 to 2 weeks for staple removal and for pathology results. Time Spent With Patient Time: Total time spent is greater than 50% in coordination of care (as documented) at patient's floor/unit and/or counseling patient:
[2020-09-13] MEDS: HEPARIN 5,000 UNIT/ML VIAL SQ SCH ×2 (08:59→20:02)
[2020-09-13] MEDS: amLODIPine 5 MG TABLET PO SCH (08:59)
[2020-09-13] MEDS: HYDROcodone/APAP 5/325MG TABLET PO PRN ×4 (10:30→21:57)
--- NOTE | 2020-09-13 10:44 | Internal Med Progress Note ---
SUBJECTIVE Subjective Patient information: Note initiated : 09/13/20 at 10:40 am Service Date, if different from initiated Date: [] Patient: Jean Judge a 74 y/o M admitted on 09/10/20 for Abdominal Pain . Chief Complaint: [] Interval history: History of present illness: Mr. Judge is a 74 year old M with recent hospitalization for obstructive uropathy. He was discharged on 09/03 . Shortly after discharge patient started experiencing abdominal distention with associated pain and dirrhea. Symptoms persisted for the next few days with worsening nausea and pain. He presents today for evaluation. Patient work-up was consistent with acute kidney injury creatinine over 4 and potassium 2.5. Nephrology was consulted. Noncontrast abdominal CT scan consistent distended bowel but resolution of obstructive uropathy with interval passage of stones. Patient was started on crystalloids. NG was placed. Subsequently hospitalist service was consulted for above symptoms. At the time of my evaluation patient is very anxious. He endorses to symptoms above. Describes pain 6-7 out of 10 feels worse with eating. Denies history of significant fever. Patient dysuria or hematuria. Denies fever chills, chest pain or shortness of breath. He appears very uncomfortable distended abdomen. 09/11-patient stable overnight. NG output over 600 cc. Radiology recommends Hypaque enema/abdominal imaging to rule out obstruction. Surgery consulted. Potassium 2.8 on IV replacement. Creatinine down to 3.7. Nephrology on board. No overnight fever chills. Patient appears very uncomfortable with persistent distention 09/12-patient postop day 1 status post expiratory laparotomy with sigmoid colectomy and ostomy placement. Managed per surgery. Adenocarcinoma noted on imaging. Await surgical pathology. Postop care as per surgery. Advancing diet and ostomy care as per surgery. White count 17.2 likely postop stress related, creatinine 3 down from 3.7. Improved potassium at 3.5 with aggressive replacement. 09/13-patient doing well. No overnight events. No additional concerns per nursing staff. Ostomy output fair. No abdominal pain except at the incisional site requiring opioids. Transition to oral opioids. Tolerating diet advancement as per surgery. White count at 16.2. Hemoglobin 10.7, potassium 3 on replacement. Creatinine gradually improving now down to 2.3 from peak of 4. Ongoing postop care per surgery. Constitutional Vitals: Vital Signs Temp Pulse Resp BP Pulse Ox 98.7 F 78 18 157/73 94 09/13/20 07:46 09/13/20 07:46 09/13/20 07:46 09/13/20 07:46 09/13/20 07:46 Period Temp Pulse Resp BP Sys/Becerra Pulse Ox Last 24 Hr 97.3 F-99.2 F 78-96 18-26 128-170/63-86 91-99 Intake and Output 09/12/20 09/13/20 09/13/20 21:59 05:59 13:59 Intake Total 1300 1000 Output Total 1030 1225 175 Balance -1030 75 825 Weight 84.459 kg Alert oriented Nonlabored breathing Ostomy site draining well. No anxiety No lymphedema Intake & Output: Intake & Output 09/12/20 09/13/20 09/13/20 21:59 05:59 13:59 Intake Total 1300 1000 Output Total 1030 1225 175 Balance -1030 75 825 Weight 84.459 kg Intake: IV 900 1000 Lactated Ringers 1,000 ml @ 230 839 5342 mls/hr IV .Q10H [facility] Rx#: [id number] Oral 400 Output: Void Amount 480 675 Stool 550 550 175 Other: Stool Size Moderate Stool Color Brown Stool Consistency Soft Liquid # Voids 1 1 OBJ DATA Labs CBC & Chem 7: 09/13/20 05:42 09/13/20 05:42 Labs: Abnormal Lab Results 09/13/20 09/13/20 09/12/20 05:42 05:42 05:11 WBC 16.2 H RBC 3.71 L Hgb 10.7 L Hct 32.6 L POC Hct Neut % (Auto) 85.3 H Lymph % (Auto) 7.5 L Lymph # (Auto) 1.21 L [place] # (Auto) 1.09 H Absolute Neutrophils 13.76 H POC Potassium Potassium 2.9 L* POC BUN BUN Creatinine 2.3 H 3.0 H POC Creatinine Glucose 120 H POC Glucose Calcium 8.1 L POC WB Ioniz Calcium Lactate Dehydrogenase 228 H Total Protein 5.5 L 5.8 L Albumin 3.1 L Urine Occult Blood Urine RBC Urine Mucus 09/12/20 09/11/20 09/11/20 05:11 14:20 05:00 WBC 17.2 H RBC 3.97 L 3.96 L Hgb 11.4 L 11.4 L Hct 35.1 L 34.7 L POC Hct 38 L Neut % (Auto) 93.2 H 79.3 H Lymph % (Auto) 2.8 L 11.0 L Lymph # (Auto) 0.49 L 1.10 L [place] # (Auto) Absolute Neutrophils 16.03 H POC Potassium 3.0 L Potassium POC BUN 23 H BUN Creatinine POC Creatinine 5.0 H Glucose POC Glucose 118 H Calcium POC WB Ioniz Calcium 1.10 L Lactate Dehydrogenase Total Protein Albumin Urine Occult Blood Urine RBC Urine Mucus 09/11/20 09/10/20 09/10/20 04:59 15:42 13:25 WBC RBC Hgb Hct POC Hct Neut % (Auto) Lymph % (Auto) Lymph # (Auto) [place] # (Auto) Absolute Neutrophils POC Potassium Potassium 2.8 L* 2.5 L* POC BUN BUN 25 H Creatinine 3.7 H 4.0 H POC Creatinine 4.3 H Glucose 110 H POC Glucose Calcium 7.9 L POC WB Ioniz Calcium Lactate Dehydrogenase Total Protein 5.7 L Albumin Urine Occult Blood 3+(large) A Urine RBC 16 H Urine Mucus Few A 09/10/20 13:25 WBC 11.2 H RBC 4.26 L Hgb 12.2 L Hct 36.5 L POC Hct Neut % (Auto) Lymph % (Auto) 13.1 L Lymph # (Auto) 1.47 L [place] # (Auto) 1.00 H Absolute Neutrophils 8.59 H POC Potassium Potassium POC BUN BUN Creatinine POC Creatinine Glucose POC Glucose Calcium POC WB Ioniz Calcium Lactate Dehydrogenase Total Protein Albumin Urine Occult Blood Urine RBC Urine Mucus Meds: Medications Acetaminophen (Acetaminophen 325 Mg Tablet) 650 mg PO Q4-6HP PRN; Protocol PRN Reason: Per Pain Protocol/Fever > 101 Hydrocodone Bitart/Acetaminophen (Hydrocodone/Apap 5/325mg Tablet) 1 tab PO Q4HP PRN; Protocol PRN Reason: Per Pain Protocol Last Admin: 09/13/20 10:30 Dose: 1 tab Documented by: Amlodipine Besylate (Amlodipine 5 Mg Tablet) 5 mg PO QDAY [facility] Last Admin: 09/13/20 08:59 Dose: 5 mg Documented by: Atorvastatin Calcium (Atorvastatin 10 Mg Tablet) 10 mg PO QHS [facility] Last Admin: 09/12/20 19:31 Dose: 10 mg Documented by: Heparin Sodium (Porcine) (Heparin 5,000 Unit/Ml Vial) 5,000 unit SQ Q12 [facility] Last Admin: 09/13/20 08:59 Dose: 5,000 unit Documented by: Hydralazine HCl (Hydralazine 20 Mg/Ml Vial) 10 mg IV Q4 PRN PRN Reason: Blood Pressure - High Hydromorphone HCl (Hydromorphone 0.5 Mg/0.5 Ml Syringe) 0.5 mg IV Q2HP PRN; Protocol PRN Reason: Per Pain Protocol Last Admin: 09/13/20 09:46 Dose: 0.5 mg Documented by: Acetaminophen (Ofirmev) 650 mg in 65 mls @ 130 mls/hr IV Q6HP PRN; Protocol PRN Reason: Per Pain Protocol/Fever > 101 Lactated Ringer's (Lactated Ringers) 1,000 mls @ 100 mls/hr IV .Q10H [facility] Last Admin: 09/13/20 09:46 Dose: 100 mls/hr Documented by: Magnesium Sulfate (Magnesium Sulfate) 2 gm in 50 mls @ 50 mls/hr IV UD PRN PRN Reason: MG = or < 1.7 Potassium Chloride 40 meq/ (Dextrose) 520 mls @ 130 mls/hr IV UD PRN PRN Reason: K+ = or < 3.5 Melatonin (Melatonin 3 Mg Tablet) 3 mg PO HSP PRN PRN Reason: Insomnia Ondansetron HCl (Ondansetron 4 Mg/2 Ml Vial) 4 mg IV Q4-6HP PRN; Protocol PRN Reason: Nausea And Vomiting Sodium Chloride (0.9 % Sodium Chloride 10 Ml Syringe) 10 ml IV Q8 [facility] Last Admin: 09/13/20 05:27 Dose: 10 ml Documented by: Tamsulosin HCl (Tamsulosin 0.4 Mg Capsule) 0.4 mg PO [facility] Last Admin: 09/12/20 19:31 Dose: 0.4 mg Documented by: A/P Narrative A/P Narrative: 74-year-old male with recent history of nephrolithiasis/DIMITRI presents with worsening abdominal distention/nausea consistent with ileus and acute kidney injury. 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 Ongoing care per surgery. Draining well. Await surgical pathology. * Acute kidney injury: Gradual improvement noted, creatinine down to 2.3 from a peak of 4, nephrology on board * Runs of V. tach-no further episodes. On aggressive electrolyte replacement including magnesium and potassium. * Hypokalemia -on aggressive replacement. * History of hypertension as needed IV hydralazine, restart p.o. meds * HLD-home statin Plan: * Postop care per surgery * Electrolyte replacement * Oral pain medications * Restart antihypertensives * Supportive management * Diet advancement per surgery * Therapies as tolerated Time Spent With Patient Time: Total time spent is greater than 50% in coordination of care (as documented) at patient's floor/unit and/or counseling patient:
[2020-09-13] MEDS: TAMSULOSIN 0.4 MG CAPSULE PO SCH (20:01)
[2020-09-13] MEDS: ATORVASTATIN 10 MG TABLET PO SCH (20:01)
[2020-09-13] MEDS: hydrALAZINE 20 MG/ML VIAL IV PRN (23:55)
[2020-09-14] MEDS: HYDROcodone/APAP 5/325MG TABLET PO PRN ×5 (02:00→20:33)
[2020-09-14] MEDS: HYDROmorphone 0.5 MG/0.5 ML SYRINGE IV PRN (04:25)
[2020-09-14] MEDS: hydrALAZINE 20 MG/ML VIAL IV PRN ×2 (04:31→12:15)
[2020-09-14] MEDS: LACTATED RINGERS 1,000 ML IV SCH ×4 (04:31→20:32)
[2020-09-14] MEDS: 0.9 % SODIUM CHLORIDE 10 ML SYRINGE IV SCH ×3 (04:32→20:34)
[2020-09-14 07:03] LABS: Basophils # (Auto) 0.06 K/mcL (0.00-0.20); Basophils % (Auto) 0.5 % (0.0-2.0); Eosinophils # (Auto) 0.05 K/mcL (0.00-0.70); Eosinophils % (Auto) 0.4 % (0.0-7.0); Hematocrit 32.1 % (41.0-55.0); Hemoglobin 10.5 g/dL (13.5-16.5); Lymphocytes % (Auto) 9.9 % (15.0-49.0); Mean Cell Volume 87.9 fL (80.0-100.0); Mean Corpuscular HGB Conc 32.7 g/dL (31.0-36.0); Monocytes # (Auto) 0.88 K/mcL (0.10-0.90); Monocytes % (Auto) 7.3 % (1.0-12.0); Neutrophils % (Auto) 81.9 % (38.0-78.0); Platelet Count 296 K/mcL (140-440); RBC 3.65 M/mcL (4.50-5.90); Red Cell Distribution Width 12.8 % (11.5-14.5); WBC 12.1 K/mcL (4.5-11.0)
[2020-09-14 08:09] LABS: ALT/SGPT 12 U/L (<40); AST/SGOT 23 U/L (<40); Albumin 3.1 gm/dL (3.2-5.2); Albumin/Globulin Ratio 1.2 (1.0-2.3); Alkaline Phosphatase 61 U/L (39-117); Bilirubin,Direct < 0.2 mg/dL (0-0.3); Bilirubin,Total 0.5 mg/dL (0.1-1.0); Blood Urea Nitrogen 16 mg/dL (8-23); Calcium 8.4 mg/dL (8.6-10.4); Carbon Dioxide 26 mmol/L (22-30); Chloride 102 mmol/L (96-108); Globulin 2.5 gm/dL (2.2-3.7); Glomerular Filtration Rate 32; Glucose 100 mg/dL (70-105); Lactate Dehydrogenase 201 U/L (135-225); Triglycerides 112 mg/dL (<150); Uric Acid 6.2 mg/dL (2.5-8.0)
[2020-09-14] MEDS: POTASSIUM CHLORIDE 20 MEQ/15 ML ML PO PRN ×2 (08:54→16:32)
[2020-09-14] MEDS: amLODIPine 5 MG TABLET PO SCH (08:54)
[2020-09-14] MEDS: HEPARIN 5,000 UNIT/ML VIAL SQ SCH ×2 (08:54→20:33)
[2020-09-14] MEDS: POTASSIUM CHLORIDE 40 MEQ in DEXTROSE 5% IN WATER 500 ML IV PRN (09:16)
--- NOTE | 2020-09-14 09:35 | General Surgery Progress Note ---
SUBJECTIVE Subjective Patient information: Note initiated : 09/14/20 at 9:33 am Service Date, if different from initiated Date: [] Patient: Jean Judge 74 y/o M admitted on 09/10/20 for Abdominal Pain . Chief Complaint: [] Interval history: Postop day #3 status post exploratory laparotomy, sigmoid colectomy and end ostomy. Patient feels better this morning, has return of normal bowel function and has been ambulatory. Pertinent ROS: Denies fevers chills nausea or vomiting Constitutional Vitals: Vital Signs Temp Pulse Resp BP Pulse Ox 98.6 F 84 18 169/84 96 09/14/20 07:15 09/14/20 07:15 09/14/20 07:15 09/14/20 07:15 09/14/20 07:15 Period Temp Pulse Resp BP Sys/Becerra Pulse Ox Last 24 Hr 97.9 F-98.6 F 81-98 16-24 147-176/74-84 93-96 Intake and Output 09/13/20 09/14/20 09/14/20 21:59 05:59 13:59 Intake Total 1347 1328 Output Total 430 50 Balance 917 1278 Weight 186 lb 9.6 oz Intake & Output: Intake & Output 09/13/20 09/14/20 09/14/20 21:59 05:59 13:59 Intake Total 1347 1328 Output Total 430 50 Balance 917 1278 Weight 186 lb 9.6 oz Intake: IV 947 928 Lactated Ringers 1,000 ml @ 100 947 928 mls/hr IV .Q10H [facility] Rx#: [id number] Oral 400 400 Output: Stool 430 50 Other: Meal Dinner Breakfast Percent of Meal Consumed 100% 100% Feeding Ability Independent Stool Size Small Stool Color Brown Brown Stool Consistency Liquid Liquid # Voids 1 1 # Bowel Movements 1 1 General appearance: cooperative and no acute distress GI/Abdominal GI/Abdominal exam: Present soft and tenderness (Appropriately tender to palpation); Absent distended Additional comments: Midline incision is clean dry and intact, ostomy has a jessica amount of mucosa on the outside however the remainder of the interior portion of the stoma is pink and viable. A/P Narrative A/P Narrative: Postop day #3 status post exploratory laparotomy for near obstructing colon cancer. Patient is progressing as expected. Cleared for discharge from a surgical standpoint. Time Spent With Patient Time: Total time spent is greater than 50% in coordination of care (as documented) at patient's floor/unit and/or counseling patient:
[2020-09-14] MEDS: NEUTRA PHOS 1 PACKET PO PRN (12:15)
--- NOTE | 2020-09-14 15:00 | Surgical Pathology Report ---
Histology Microscopic Diagnosis Specimen A- COLON, SIGMOID RESECTION: --- DIVERTICULOSIS WITH MUCOSAL ISCHEMIC CHANGE AND DENSE LYMPHOPLASMACYTIC CHRONIC INFLAMMATION INVOLVING MUSCULARIS PROPRIA. --- MARGINS VIABLE. --- TWO REACTIVE LYMPH NODES (0/2). --- NO DYSPLASIA OR CARCINOMA IDENTIFIED. Procedural Impression Large bowel obstruction. Gross Description Received in formalin labeled sigmoid, is a segment of sigmoid colon received closed with both margins stapled. It is 21.5 cm in length by 4 cm in diameter. Approximately 6 cm from one margin there is a possible area of stricture. This margin is inked black. The wall is 0.2 cm thick. Within the area of stricture the wall is up to 0.9 cm thick. The mucosa is huizar, plicated with broadened folds. There are areas of possible diverticula identified. Located within this area of stricture there are two possible polyps. The are 1.2 and 1.3 cm. Located within the stricture there are two cavities filled with brown fecal material. They are 1.2 and 2.3 cm. There are two candidate lymph nodes identified. They are 0.5 x 0.3 cm. Science Education Professor sections submitted in nine cassettes: A1 - margins; A2 - area of possible diverticula; A3 - possible polyps; A4-A7 - contact center representative sections of cavities with composite sections in A4-A5 and A6-A7; A8 random sections; A9 candidate lymph nodes. (SCB:adj) Electronically Signed Debbie Valentin MD, FCAP Electronically Signed 09/14/2020 14:59
[2020-09-14] MEDS: MELATONIN 3 MG TABLET PO PRN (20:33)
[2020-09-14] MEDS: TAMSULOSIN 0.4 MG CAPSULE PO SCH (20:33)
[2020-09-14] MEDS: ATORVASTATIN 10 MG TABLET PO SCH (20:33)
[2020-09-15] MEDS: hydrALAZINE 20 MG/ML VIAL IV PRN ×2 (00:10→04:15)
[2020-09-15] MEDS: HYDROcodone/APAP 5/325MG TABLET PO PRN ×4 (00:11→20:14)
[2020-09-15] MEDS: LACTATED RINGERS 1,000 ML IV SCH ×4 (03:54→23:53)
[2020-09-15] MEDS: 0.9 % SODIUM CHLORIDE 10 ML SYRINGE IV SCH ×3 (04:15→23:54)
[2020-09-15 07:15] LABS: Basophils # (Auto) 0.06 K/mcL (0.00-0.20); Basophils % (Auto) 0.6 % (0.0-2.0); Hematocrit 31.9 % (41.0-55.0); Hemoglobin 10.2 g/dL (13.5-16.5); Lymphocytes # (Auto) 1.22 K/mcL (1.50-4.80); Lymphocytes % (Auto) 11.9 % (15.0-49.0); Mean Cell Volume 89.1 fL (80.0-100.0); Mean Platelet Volume 9.8 fL (7.4-10.4); Monocytes # (Auto) 0.82 K/mcL (0.10-0.90); Neutrophils % (Auto) 78.5 % (38.0-78.0); Platelet Count 351 K/mcL (140-440); RBC 3.58 M/mcL (4.50-5.90); Red Cell Distribution Width 12.8 % (11.5-14.5); WBC 10.3 K/mcL (4.5-11.0)
[2020-09-15 08:18] LABS: ALT/SGPT 22 U/L (<40); AST/SGOT 34 U/L (<40); Albumin 2.8 gm/dL (3.2-5.2); Albumin/Globulin Ratio 1.1 (1.0-2.3); Alkaline Phosphatase 56 U/L (39-117); Bilirubin,Direct < 0.2 mg/dL (0-0.3); Bilirubin,Total 0.6 mg/dL (0.1-1.0); Blood Urea Nitrogen 13 mg/dL (8-23); Calcium 8.3 mg/dL (8.6-10.4); Carbon Dioxide 26 mmol/L (22-30); Chloride 100 mmol/L (96-108); Globulin 2.6 gm/dL (2.2-3.7); Glomerular Filtration Rate 42; Glucose 96 mg/dL (70-105); Lactate Dehydrogenase 226 U/L (135-225); Phosphorous 2.2 mg/dL (2.5-4.5); Triglycerides 127 mg/dL (<150); Uric Acid 5.1 mg/dL (2.5-8.0)
[2020-09-15] MEDS: amLODIPine 5 MG TABLET PO SCH (08:28)
[2020-09-15] MEDS: HEPARIN 5,000 UNIT/ML VIAL SQ SCH ×2 (08:28→20:15)
[2020-09-15] MEDS: NEUTRA PHOS 1 PACKET PO PRN (08:28)
[2020-09-15] MEDS: POTASSIUM CHLORIDE 20 MEQ/15 ML ML PO PRN (08:28)
[2020-09-15] MEDS ORDERED: POTASSIUM CHLORIDE 40 MEQ in DEXTROSE 5% IN WATER 500 ML IV ONE (08:32)
--- NOTE | 2020-09-15 08:54 | General Surgery Progress Note ---
SUBJECTIVE Subjective Patient information: Note initiated : 09/15/20 at 8:52 am Service Date, if different from initiated Date: [] Patient: Jean Judge 74 y/o M admitted on 09/10/20 for Abdominal Pain . Chief Complaint: [] Interval history: Postop day #4 status post exploratory laparotomy, sigmoid colectomy for large bowel obstruction. Patient is tolerating regular diet, ambulatory and pain is much better controlled. His ostomy is functioning normally. Constitutional Vitals: Vital Signs Temp Pulse Resp BP Pulse Ox 98.5 F 77 24 H 146/68 93 09/15/20 07:31 09/15/20 07:31 09/15/20 07:31 09/15/20 07:31 09/15/20 07:31 Period Temp Pulse Resp BP Sys/Becerra Pulse Ox Last 24 Hr 97.3 F-98.5 F 76-97 18-24 145-156/67-83 93-99 Intake and Output 09/14/20 09/15/20 09/15/20 21:59 05:59 13:59 Intake Total 1740 1057 400 Output Total 925 Balance 815 1057 400 Weight 186 lb 6.4 oz Intake & Output: Intake & Output 09/14/20 09/15/20 09/15/20 21:59 05:59 13:59 Intake Total 1740 1057 400 Output Total 925 Balance 815 1057 400 Weight 186 lb 6.4 oz Intake: IV 1050 907 Lactated Ringers 1,000 ml @ 100 1000 907 mls/hr IV .Q10H [facility] Rx#: [id number] Oral 690 150 400 Output: Void Amount 550 Stool 375 Other: Meal Dinner Percent of Meal Consumed 100% Feeding Ability Independent Urine Appearance Clear Urine Color Pale Urine Odor Normal Stool Size Small Small Stool Color Brown Brown Stool Consistency Liquid Liquid # Voids 1 1 1 # Bowel Movements 1 1 1 General appearance: cooperative and no acute distress GI/Abdominal GI/Abdominal exam: Present normal bowel sounds and soft; Absent distended and tenderness Additional comments: Ostomy is functioning, mild duskiness around the exterior, pink in the ostomy. A/P Narrative A/P Narrative: Postop exploratory laparotomy for nearly obstructing colon lesion. Pathology reviewed, negative for cancer, consistent with diverticular stricture. Patient is clear for discharge from surgical standpoint. Follow-up with me in 1 week for staple removal. We will plan for colonoscopy and ostomy reversal in the next 6 weeks to 3 months. Time Spent With Patient Time: Total time spent is greater than 50% in coordination of care (as documented) at patient's floor/unit and/or counseling patient:
[2020-09-15] MEDS: POTASSIUM CHLORIDE 40 MEQ in DEXTROSE 5% IN WATER 500 ML IV PRN (08:55)
[2020-09-15] MEDS: POTASSIUM CHLORIDE 40 MEQ in DEXTROSE 5% IN WATER 500 ML IV ONE ×2 (13:17→18:00)
--- NOTE | 2020-09-15 14:27 | Internal Med Progress Note ---
SUBJECTIVE Subjective Patient information: Note initiated : 09/14/20 at 12:23 pm Service Date, if different from initiated Date: Patient: Jean Judge a 74 y/o M admitted on 09/10/20 for Abdominal Pain . Chief Complaint: [] Interval history: Mr. Judge is a 74 year old M with recent hospitalization for obstructive uropathy. He was discharged on 09/03 . Shortly after discharge patient started experiencing abdominal distention with associated pain and dirrhea. Symptoms persisted for the next few days with worsening nausea and pain. He presents today for evaluation. Patient work-up was consistent with acute kidney injury creatinine over 4 and potassium 2.5. Nephrology was consulted. Noncontrast abdominal CT scan consistent distended bowel but resolution of obstructive uropathy with interval passage of stones. Patient was started on crystalloids. NG was placed. Subsequently hospitalist service was consulted for above symptoms. At the time of my evaluation patient is very anxious. He endorses to symptoms above. Describes pain 6-7 out of 10 feels worse with eating. Denies history of significant fever. Patient dysuria or hematuria. Denies fever chills, chest pain or shortness of breath. He appears very uncomfortable distended abdomen. 09/11-patient stable overnight. NG output over 600 cc. Radiology recommends Hy paque enema/abdominal imaging to rule out obstruction. Surgery consulted. Potassium 2.8 on IV replacement. Creatinine down to 3.7. Nephrology on board. No overnight fever chills. Patient appears very uncomfortable with persistent distention 09/12-patient postop day 1 status post expiratory laparotomy with sigmoid colectomy and ostomy placement. Managed per surgery. Adenocarcinoma noted on imaging. Await surgical pathology. Postop care as per surgery. Advancing diet and ostomy care as per surgery. White count 17.2 likely postop stress related, creatinine 3 down from 3.7. Improved potassium at 3.5 with aggressive replacement. 09/13-patient doing well. No overnight events. No additional concerns per nursing staff. Ostomy output fair. No abdominal pain except at the incisional site requiring opioids. Transition to oral opioids. Tolerating diet advancement as per surgery. White count at 16.2. Hemoglobin 10.7, potassium 3 on replacement. Creatinine gradually improving now down to 2.3 from peak of 4. Ongoing postop care per surgery. 09/14-potassium 2.6. Continue aggressive IV and p.o. replacement. Surgery on board. Ostomy draining well. Denies abdominal pain fever chills. Advancing diet per surgery recommendations. No overnight fever chills. Creatinine down to, magnesium 1.5 on replacement. Phosphorus 2 continue Neutra-Phos. Ongoing therapy/ostomy care Constitutional Vitals: Vital Signs Temp Pulse Resp BP Pulse Ox 97.9 F 87 24 H 138/74 97 09/15/20 12:00 09/15/20 12:00 09/15/20 12:00 09/15/20 12:00 09/15/20 12:00 Period Temp Pulse Resp BP Sys/Becerra Pulse Ox Last 24 Hr 97.3 F-98.5 F 76-97 20-24 138-156/68-83 93-99 Intake and Output 09/15/20 09/15/20 09/15/20 05:59 13:59 21:59 Intake Total 1057 1060 Output Total 200 Balance 1057 860 alert oriented Nonlabored breathing No anxiety Nondistended abdomen, colostomy bag Intake & Output: Intake & Output 09/15/20 09/15/20 09/15/20 05:59 13:59 21:59 Intake Total 1057 1060 Output Total 200 Balance 1057 860 Intake: IV 907 Lactated Ringers 1,000 ml @ 100 907 mls/hr IV .Q10H [facility] Rx#: [id number] Oral 150 1060 Output: Stool 200 Other: Meal Lunch Percent of Meal Consumed 100% Feeding Ability Independent Stool Size Small Small Stool Color Brown Brown Stool Consistency Liquid Loose # Voids 1 1 # Bowel Movements 1 1 OBJ DATA Labs CBC & Chem 7: 09/15/20 05:15 09/15/20 05:15 Labs: Abnormal Lab Results 09/15/20 09/15/20 09/14/20 05:15 05:15 05:16 WBC RBC 3.58 L Hgb 10.2 L Hct 31.9 L MPV Neut % (Auto) 78.5 H Lymph % (Auto) 11.9 L Lymph # (Auto) 1.22 L [place] # (Auto) Absolute Neutrophils 8.06 H Potassium 2.5 L* 2.6 L* Creatinine 1.6 H 2.0 H Calcium 8.3 L 8.4 L Phosphorus 2.2 L 2.0 L Magnesium 1.5 L Lactate Dehydrogenase 226 H Total Protein 5.4 L 5.6 L Albumin 2.8 L 3.1 L 09/14/20 09/13/20 09/13/20 05:16 05:42 05:42 WBC 12.1 H 16.2 H RBC 3.65 L 3.71 L Hgb 10.5 L 10.7 L Hct 32.1 L 32.6 L MPV 11.0 H Neut % (Auto) 81.9 H 85.3 H Lymph % (Auto) 9.9 L 7.5 L Lymph # (Auto) 1.20 L 1.21 L [place] # (Auto) 1.09 H Absolute Neutrophils 9.90 H 13.76 H Potassium 2.9 L* Creatinine 2.3 H Calcium 8.1 L Phosphorus Magnesium Lactate Dehydrogenase 228 H Total Protein 5.5 L Albumin 3.1 L Meds: Medications Acetaminophen (Acetaminophen 325 Mg Tablet) 650 mg PO Q4-6HP PRN; Protocol PRN Reason: Per Pain Protocol/Fever > 101 Hydrocodone Bitart/Acetaminophen (Hydrocodone/Apap 5/325mg Tablet) 1 tab PO Q4HP PRN; Protocol PRN Reason: Per Pain Protocol Last Admin: 09/15/20 05:33 Dose: 1 tab Documented by: Amlodipine Besylate (Amlodipine 5 Mg Tablet) 5 mg PO QDAY [facility] Last Admin: 09/15/20 08:28 Dose: 5 mg Documented by: Atorvastatin Calcium (Atorvastatin 10 Mg Tablet) 10 mg PO QHS [facility] Last Admin: 09/14/20 20:33 Dose: 10 mg Documented by: Heparin Sodium (Porcine) (Heparin 5,000 Unit/Ml Vial) 5,000 unit SQ Q12 [facility] Last Admin: 09/15/20 08:28 Dose: 5,000 unit Documented by: Hydralazine HCl (Hydralazine 20 Mg/Ml Vial) 10 mg IV Q4 PRN PRN Reason: Blood Pressure - High Last Admin: 09/15/20 04:15 Dose: 10 mg Documented by: Hydromorphone HCl (Hydromorphone 0.5 Mg/0.5 Ml Syringe) 0.5 mg IV Q2HP PRN; Pro tocol PRN Reason: Per Pain Protocol Last Admin: 09/14/20 04:25 Dose: 0.5 mg Documented by: Acetaminophen (Ofirmev) 650 mg in 65 mls @ 130 mls/hr IV Q6HP PRN; Protocol PRN Reason: Per Pain Protocol/Fever > 101 Lactated Ringer's (Lactated Ringers) 1,000 mls @ 100 mls/hr IV .Q10H [facility] Last Admin: 09/15/20 05:36 Dose: 100 mls/hr Documented by: Magnesium Sulfate (Magnesium Sulfate) 2 gm in 50 mls @ 50 mls/hr IV UD PRN PRN Reason: MG = or < 1.7 Last Infusion: 09/14/20 14:30 Dose: Infused Documented by: Potassium Chloride 40 meq/ (Dextrose) 520 mls @ 130 mls/hr IV UD PRN PRN Reason: K+ = or < 3.5 Last Admin: 09/15/20 08:55 Dose: 130 mls/hr Documented by: Potassium Chloride 40 meq/ (Dextrose) 520 mls @ 130 mls/hr IV ONCE ONE Stop: 09/15/20 16:59 Last Admin: 09/15/20 13:17 Dose: Not Given Documented by: Melatonin (Melatonin 3 Mg Tablet) 3 mg PO HSP PRN PRN Reason: Insomnia Last Admin: 09/14/20 20:33 Dose: 3 mg Documented by: Ondansetron HCl (Ondansetron 4 Mg/2 Ml Vial) 4 mg IV Q4-6HP PRN; Protocol PRN Reason: Nausea And Vomiting Potassium Chloride (Potassium Chloride 20 Meq Tablet) [facility] Potassium/Phosphorus/Sodium (Neutra Phos 1 Packet) 2 packet PO DAILY PRN PRN Reason: PHOS <2.5 Last Admin: 09/15/20 08:28 Dose: 2 packet Documented by: Sodium Chloride (0.9 % Sodium Chloride 10 Ml Syringe) 10 ml IV Q8 [facility] Last Admin: 09/15/20 04:15 Dose: 10 ml Documented by: Tamsulosin HCl (Tamsulosin 0.4 Mg Capsule) 0.4 mg PO HS [facility] Last Admin: 09/14/20 20:33 Dose: 0.4 mg Documented by: A/P Narrative A/P Narrative: 74-year-old male with recent history of nephrolithiasis/DIMITRI presents with worsening abdominal distention/nausea consistent with ileus and acute kidney injury. 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 Ongoing care per surgery. Colostomy draining well. Await surgical pathology. * Acute kidney injury: Gradual improvement noted, creatinine down from 4 ->2 * Low magnesium, phosphorus and potassium on aggressive IV and p.o. replacement * Runs of V. tach-no further episodes. Continue telemetry monitoring * History of hypertension on home medications * HLD-home statin * Prophylaxis Heparin Plan: * Continue potassium/phosphorus/magnesium replacement indicated * Pre-existing medical condition management home medications * Diet advancement per surgery * Therapies as tolerated Time Spent With Patient Time: Total time spent is greater than 50% in coordination of care (as documented) at patient's floor/unit and/or counseling patient:
--- NOTE | 2020-09-15 14:29 | Internal Med Progress Note ---
SUBJECTIVE Subjective Patient information: Note initiated : 09/15/20 at 2:27 pm Service Date, if different from initiated Date: [] Patient: Jean Judge a 74 y/o M admitted on 09/10/20 for Abdominal Pain . Chief Complaint: [] Interval history: Mr. Judge is a 74 year old M with recent hospitalization for obstructive uropathy. He was discharged on 09/03 . Shortly after discharge patient started experiencing abdominal distention with associated pain and dirrhea. Symptoms persisted for the next few days with worsening nausea and pain. He presents today for evaluation. Patient work-up was consistent with acute kidney injury creatinine over 4 and potassium 2.5. Nephrology was consulted. Noncontrast abdominal CT scan consistent distended bowel but resolution of obstructive uropathy with interval passage of stones. Patient was started on crystalloids. NG was placed. Subsequently hospitalist service was consulted for above symptoms. At the time of my evaluation patient is very anxious. He endorses to symptoms above. Describes pain 6-7 out of 10 feels worse with eating. Denies history of significant fever. Patient dysuria or hematuria. Denies fever chills, chest pain or shortness of breath. He appears very uncomfortable distended abdomen. 09/11-patient stable overnight. NG output over 600 cc. Radiology recommends H ypaque enema/abdominal imaging to rule out obstruction. Surgery consulted. Potassium 2.8 on IV replacement. Creatinine down to 3.7. Nephrology on board. No overnight fever chills. Patient appears very uncomfortable with persistent distention 09/12-patient postop day 1 status post expiratory laparotomy with sigmoid colectomy and ostomy placement. Managed per surgery. Adenocarcinoma noted on imaging. Await surgical pathology. Postop care as per surgery. Advancing diet and ostomy care as per surgery. White count 17.2 likely postop stress related, creatinine 3 down from 3.7. Improved potassium at 3.5 with aggressive replacement. 09/13-patient doing well. No overnight events. No additional concerns per nursing staff. Ostomy output fair. No abdominal pain except at the incisional site requiring opioids. Transition to oral opioids. Tolerating diet advancement as per surgery. White count at 16.2. Hemoglobin 10.7, potassium 3 on replacement. Creatinine gradually improving now down to 2.3 from peak of 4. Ongoing postop care per surgery. 09/14-potassium 2.6. Continue aggressive IV and p.o. replacement. Surgery on board. Ostomy draining well. Denies abdominal pain fever chills. Advancing diet per surgery recommendations. No overnight fever chills. Creatinine down to, magnesium 1.5 on replacement. Phosphorus 2 continue Neutra-Phos. Ongoing therapy/ostomy care 09/15-improved renal function creatinine down to 1.5. Tolerating diet. Potassium 2.5 on aggressive replacement. Improving magnesium/phosphorus. Continue therapies as tolerated. Advance diet as per surgery. Anticipate discharge in 48 hours pending electrolyte improvement. Continue therapies. Await surgical pathology Constitutional Vitals: Vital Signs Temp Pulse Resp BP Pulse Ox 97.9 F 87 24 H 138/74 97 09/15/20 12:00 09/15/20 12:00 09/15/20 12:00 09/15/20 12:00 09/15/20 12:00 Period Temp Pulse Resp BP Sys/Becerra Pulse Ox Last 24 Hr 97.3 F-98.5 F 76-97 20-24 138-156/68-83 93-99 Intake and Output 09/15/20 09/15/20 09/15/20 05:59 13:59 21:59 Intake Total 1057 1060 Output Total 200 Balance 1057 860 Oriented Nonlabored breathing Colostomy draining well. No telemetry events Intake & Output: Intake & Output 09/15/20 09/15/20 09/15/20 05:59 13:59 21:59 Intake Total 1057 1060 Output Total 200 Balance 1057 860 Intake: IV 907 Lactated Ringers 1,000 ml @ 100 907 mls/hr IV .Q10H [facility] Rx#: [id number] Oral 150 1060 Output: Stool 200 Other: Meal Lunch Percent of Meal Consumed 100% Feeding Ability Independent Stool Size Small Small Stool Color Brown Brown Stool Consistency Liquid Loose # Voids 1 1 # Bowel Movements 1 1 OBJ DATA Labs CBC & Chem 7: 09/15/20 05:15 09/15/20 05:15 Labs: Abnormal Lab Results 09/15/20 09/15/20 09/14/20 05:15 05:15 05:16 WBC RBC 3.58 L Hgb 10.2 L Hct 31.9 L MPV Neut % (Auto) 78.5 H Lymph % (Auto) 11.9 L Lymph # (Auto) 1.[address] [place] # (Auto) Absolute Neutrophils 8.06 H Potassium 2.5 L* 2.6 L* Creatinine 1.6 H 2.0 H Calcium 8.3 L 8.4 L Phosphorus 2.2 L 2.0 L Magnesium 1.5 L Lactate Dehydrogenase 226 H Total Protein 5.4 L 5.6 L Albumin 2.8 L 3.1 L 09/14/20 09/13/20 09/13/20 05:16 05:42 05:42 WBC 12.1 H 16.2 H RBC 3.65 L 3.71 L Hgb 10.5 L 10.7 L Hct 32.1 L 32.6 L MPV 11.0 H Neut % (Auto) 81.9 H 85.3 H Lymph % (Auto) 9.9 L 7.5 L Lymph # (Auto) 1.[address] [place] # (Auto) 1.09 H Absolute Neutrophils 9.90 H 13.76 H Potassium 2.9 L* Creatinine 2.3 H Calcium 8.1 L Phosphorus Magnesium Lactate Dehydrogenase 228 H Total Protein 5.5 L Albumin 3.1 L Meds: Medications Acetaminophen (Acetaminophen 325 Mg Tablet) 650 mg PO Q4-6HP PRN; Protocol PRN Reason: Per Pain Protocol/Fever > 101 Hydrocodone Bitart/Acetaminophen (Hydrocodone/Apap 5/325mg Tablet) 1 tab PO Q4HP PRN; Protocol PRN Reason: Per Pain Protocol Last Admin: 09/15/20 05:33 Dose: 1 tab Documented by: Amlodipine Besylate (Amlodipine 5 Mg Tablet) 5 mg PO QDAY [facility] Last Admin: 09/15/20 08:28 Dose: 5 mg Documented by: Atorvastatin Calcium (Atorvastatin 10 Mg Tablet) 10 mg PO QHS [facility] Last Admin: 09/14/20 20:33 Dose: 10 mg Documented by: Heparin Sodium (Porcine) (Heparin 5,000 Unit/Ml Vial) 5,000 unit SQ Q12 [facility] Last Admin: 09/15/20 08:28 Dose: 5,000 unit Documented by: Hydralazine HCl (Hydralazine 20 Mg/Ml Vial) 10 mg IV Q4 PRN PRN Reason: Blood Pressure - High Last Admin: 09/15/20 04:15 Dose: 10 mg Documented by: Hydromorphone HCl (Hydromorphone 0.5 Mg/0.5 Ml Syringe) 0.5 mg IV Q2HP PRN; Protocol PRN Reason: Per Pain Protocol Last Admin: 09/14/20 04:25 Dose: 0.5 mg Documented by: Acetaminophen (Ofirmev) 650 mg in 65 mls @ 130 mls/hr IV Q6HP PRN; Protocol PRN Reason: Per Pain Protocol/Fever > 101 Lactated Ringer's (Lactated Ringers) 1,000 mls @ 100 mls/hr IV .Q10H [facility] Last Admin: 09/15/20 05:36 Dose: 100 mls/hr Documented by: Magnesium Sulfate (Magnesium Sulfate) 2 gm in 50 mls @ 50 mls/hr IV UD PRN PRN Reason: MG = or < 1.7 Last Infusion: 09/14/20 14:30 Dose: Infused Documented by: Potassium Chloride 40 meq/ (Dextrose) 520 mls @ 130 mls/hr IV UD PRN PRN Reason: K+ = or < 3.5 Last Admin: 09/15/20 08:55 Dose: 130 mls/hr Documented by: Potassium Chloride 40 meq/ (Dextrose) 520 mls @ 130 mls/hr IV ONCE ONE Stop: 09/15/20 16:59 Last Admin: 09/15/20 13:17 Dose: Not Given Documented by: Melatonin (Melatonin 3 Mg Tablet) 3 mg PO HSP PRN PRN Reason: Insomnia Last Admin: 09/14/20 20:33 Dose: 3 mg Documented by: Ondansetron HCl (Ondansetron 4 Mg/2 Ml Vial) 4 mg IV Q4-6HP PRN; Protocol PRN Reason: Nausea And Vomiting Potassium Chloride (Potassium Chloride 20 Meq Tablet) [facility] Potassium/Phosphorus/Sodium (Neutra Phos 1 Packet) 2 packet PO DAILY PRN PRN Reason: PHOS <2.5 Last Admin: 09/15/20 08:28 Dose: 2 packet Documented by: Sodium Chloride (0.9 % Sodium Chloride 10 Ml Syringe) 10 ml IV Q8 [facility] Last Admin: 09/15/20 04:15 Dose: 10 ml Documented by: Tamsulosin HCl (Tamsulosin 0.4 Mg Capsule) 0.4 mg PO [facility] Last Admin: 09/14/20 20:33 Dose: 0.4 mg Documented by: A/P Narrative A/P Narrative: 74-year-old male with recent history of nephrolithiasis/DIMITRI presents with worsening abdominal distention/nausea consistent with ileus and acute kidney injury. 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 Ongoing care per surgery. Colostomy draining well. Await surgical pathology. * Acute kidney injury: Gradual improvement noted, creatinine down from 4 ->2 * Hypokalemia 2.5 despite aggressive replacement. Continue IV and oral replacement * Low phosphorus continue Neutra-Phos * Runs of V. tach-no further episodes. Continue telemetry monitoring * History of hypertension on home medications * HLD-home statin * Prophylaxis Heparin Plan: * Continue electrolyte replacement as indicated * Pre-existing medical condition management home medications * Continue diet advancement per surgery * Discharge planning pending improvement in electrolytes * Repeat BMP Time Spent With Patient Time: Total time spent is greater than 50% in coordination of care (as documented) at patient's floor/unit and/or counseling patient:
[2020-09-15] MEDS: POTASSIUM CHLORIDE 20 MEQ TABLET PO SCH (16:55)
[2020-09-15] MEDS: ATORVASTATIN 10 MG TABLET PO SCH (20:14)
[2020-09-15] MEDS: TAMSULOSIN 0.4 MG CAPSULE PO SCH (20:14)
[2020-09-15] MEDS: MELATONIN 3 MG TABLET PO PRN (20:34)
[2020-09-16] MEDS: HYDROcodone/APAP 5/325MG TABLET PO PRN ×5 (03:50→20:28)
[2020-09-16] MEDS: 0.9 % SODIUM CHLORIDE 10 ML SYRINGE IV SCH ×3 (05:52→20:29)
[2020-09-16] MEDS: hydrALAZINE 20 MG/ML VIAL IV PRN ×3 (06:58→20:27)
[2020-09-16] MEDS: POTASSIUM CHLORIDE 20 MEQ TABLET PO SCH ×2 (08:16→16:58)
[2020-09-16] MEDS: amLODIPine 5 MG TABLET PO SCH (08:16)
[2020-09-16] MEDS: HEPARIN 5,000 UNIT/ML VIAL SQ SCH ×2 (08:16→20:27)
[2020-09-16 09:39] LABS: Blood Urea Nitrogen 13 mg/dL (8-23); Calcium 8.5 mg/dL (8.6-10.4); Carbon Dioxide 23 mmol/L (22-30); Chloride 106 mmol/L (96-108); Glomerular Filtration Rate 39; Glucose 95 mg/dL (70-105)
[2020-09-16] MEDS ORDERED: POTASSIUM CHLORIDE 20 MEQ TABLET PO ONE (10:08)
[2020-09-16] MEDS: POTASSIUM CHLORIDE 40 MEQ in DEXTROSE 5% IN WATER 500 ML IV PRN (10:54)
--- NOTE | 2020-09-16 13:32 | General Surgery Progress Note ---
SUBJECTIVE Subjective Patient information: Note initiated : 09/16/20 at 1:30 pm Service Date, if different from initiated Date: [] Patient: Jean Judge 74 y/o M admitted on 09/10/20 for Abdominal Pain . 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 Patient is having his normal postoperative pain, has not increased over the last several days. He reports he gets stabbing pains with movement, however once he gets moving or gets in a comfortable position the pain goes away. Constitutional Vitals: Vital Signs Temp Pulse Resp BP Pulse Ox 97.8 F 83 16 137/71 94 09/16/20 11:47 09/16/20 11:47 09/16/20 11:47 09/16/20 11:47 09/16/20 11:47 Period Temp Pulse Resp BP Sys/Becerra Pulse Ox Last 24 Hr 97.8 F-99.5 F 67-86 16-24 137-164/71-81 94-95 Intake and Output 09/15/20 09/16/20 09/16/20 21:59 05:59 13:59 Intake Total 6190 844 3917 Balance 4967 768 3172 Weight 158 lb 1.6 oz Intake & Output: Intake & Output 09/15/20 09/16/20 09/16/20 21:59 05:59 13:59 Intake Total 5064 604 9486 Balance 2518 488 5903 Weight 158 lb 1.6 oz Intake: IV 3855 817 5884 Lactated Ringers 1,000 ml @ 100 1000 1000 mls/hr IV .Q10H [facility] Rx#: [id number] Potassium Chloride 40 Meq In 520 Dextrose 5% in Water 500 ml @ 130 mls/hr IV ONCE ONE Rx#: [id number] Oral 275 360 Other: Meal Lunch Percent of Meal Consumed 100% Feeding Ability Independent Urine Appearance Clear Urine Color Bright Yellow Urine Odor Normal Stool Size Small Moderate Stool Color Brown Brown Brown Stool Consistency Soft Liquid Loose Loose Loose # Voids 1 1 1 # Bowel Movements 1 1 1 General appearance: cooperative and no acute distress GI/Abdominal GI/Abdominal exam: Present normal bowel sounds and soft; Absent distended and tenderness Additional comments: Incision is clean dry and intact, ostomy is functioning and pink A/P Narrative A/P Narrative: Postop from exploratory laparotomy sigmoid colectomy. Appropriate postoperative pain. He is tolerating regular diet, pain is improved with pain medication. He is afebrile and white count has returned to normal. Expected postoperative pain, clear for discharge from surgical standpoint. Follow-up with me next week for staple removal. Time Spent With Patient Time: Total time spent is greater than 50% in coordination of care (as documented) at patient's floor/unit and/or counseling patient:
--- NOTE | 2020-09-16 13:38 | Internal Med Progress Note ---
SUBJECTIVE Subjective Patient information: Note initiated : 09/16/20 at 1:34 pm Service Date, if different from initiated Date: [] Patient: Jean Judge a 74 y/o M admitted on 09/10/20 for Abdominal Pain . Chief Complaint: [] Interval history: Mr. Judge is a 74 year old M with recent hospitalization for obstructive uropathy. He was discharged on 09/03 . Shortly after discharge patient started experiencing abdominal distention with associated pain and dirrhea. Symptoms persisted for the next few days with worsening nausea and pain. He presents today for evaluation. Patient work-up was consistent with acute kidney injury creatinine over 4 and potassium 2.5. Nephrology was consulted. Noncontrast abdominal CT scan consistent distended bowel but resolution of obstructive uropathy with interval passage of stones. Patient was started on crystalloids. NG was placed. Subsequently hospitalist service was consulted for above symptoms. At the time of my evaluation patient is very anxious. He endorses to symptoms above. Describes pain 6-7 out of 10 feels worse with eating. Denies history of significant fever. Patient dysuria or hematuria. Denies fever chills, chest pain or shortness of breath. He appears very uncomfortable distended abdomen. 09/11-patient stable overnight. NG output over 600 cc. Radiology recommends H ypaque enema/abdominal imaging to rule out obstruction. Surgery consulted. Potassium 2.8 on IV replacement. Creatinine down to 3.7. Nephrology on board. No overnight fever chills. Patient appears very uncomfortable with persistent distention 09/12-patient postop day 1 status post expiratory laparotomy with sigmoid colectomy and ostomy placement. Managed per surgery. Adenocarcinoma noted on imaging. Await surgical pathology. Postop care as per surgery. Advancing diet and ostomy care as per surgery. White count 17.2 likely postop stress related, creatinine 3 down from 3.7. Improved potassium at 3.5 with aggressive replacement. 09/13-patient doing well. No overnight events. No additional concerns per nursing staff. Ostomy output fair. No abdominal pain except at the incisional site requiring opioids. Transition to oral opioids. Tolerating diet advancement as per surgery. White count at 16.2. Hemoglobin 10.7, potassium 3 on replacement. Creatinine gradually improving now down to 2.3 from peak of 4. Ongoing postop care per surgery. 09/14-potassium 2.6. Continue aggressive IV and p.o. replacement. Surgery on board. Ostomy draining well. Denies abdominal pain fever chills. Advancing diet per surgery recommendations. No overnight fever chills. Creatinine down to, magnesium 1.5 on replacement. Phosphorus 2 continue Neutra-Phos. Ongoing therapy/ostomy care 09/15-improved renal function creatinine down to 1.5. Tolerating diet. Potassium 2.5 on aggressive replacement. Improving magnesium/phosphorus. Continue therapies as tolerated. Advance diet as per surgery. Anticipate discharge in 48 hours pending electrolyte improvement. Continue therapies. Await surgical pathology 09/16-patient clinically improving. Tolerating diet. Renal function normalized. White count down from 16.2-10.3, no fever chills. Ostomy draining well however patient complains of pain around incision/ostomy site. Surgery made aware by nursing staff. Potassium improved from 2.5-3.1. Continue additional 80 mg of oral potassium/40 IV, creatinine down to 1.7. Constitutional Vitals: Vital Signs Temp Pulse Resp BP Pulse Ox 97.8 F 83 16 137/71 94 09/16/20 11:47 09/16/20 11:47 09/16/20 11:47 09/16/20 11:47 09/16/20 11:47 Period Temp Pulse Resp BP Sys/Becerra Pulse Ox Last 24 Hr 97.8 F-99.5 F 67-86 16-24 137-164/71-81 94-95 Intake and Output 09/15/20 09/16/20 09/16/20 21:59 05:59 13:59 Intake Total 7245 254 4370 Balance 8538 496 0875 Weight 71.713 kg Alert oriented Nonlabored breathing No anxiety Minimal abdominal tenderness around the incision site Intake & Output: Intake & Output 09/15/20 09/16/20 09/16/20 21:59 05:59 13:59 Intake Total 4531 509 0830 Balance 9809 254 7729 Weight 71.713 kg Intake: IV 2859 296 7589 Lactated Ringers 1,000 ml @ 100 1000 1000 mls/hr IV .Q10H [facility] Rx#: [id number] Potassium Chloride 40 Meq In 520 Dextrose 5% in Water 500 ml @ 130 mls/hr IV ONCE ONE Rx#: [id number] Oral 275 360 Other: Meal Lunch Percent of Meal Consumed 100% Feeding Ability Independent Urine Appearance Clear Urine Color Bright Yellow Urine Odor Normal Stool Size Small Moderate Stool Color Brown Brown Brown Stool Consistency Soft Liquid Loose Loose Loose # Voids 1 1 1 # Bowel Movements 1 1 1 OBJ DATA Labs CBC & Chem 7: 09/15/20 05:15 09/16/20 05:38 Labs: Abnormal Lab Results 09/16/20 09/15/20 09/15/20 05:38 05:15 05:15 WBC RBC 3.58 L Hgb 10.2 L Hct 31.9 L MPV Neut % (Auto) 78.5 H Lymph % (Auto) 11.9 L Lymph # (Auto) 1.22 L Absolute Neutrophils 8.06 H Potassium 3.1 L 2.5 L* Creatinine 1.7 H 1.6 H Calcium 8.5 L 8.3 L Phosphorus 2.2 L Magnesium Lactate Dehydrogenase 226 H Total Protein 5.4 L Albumin 2.8 L 09/14/20 09/14/20 05:16 05:16 WBC 12.1 H RBC 3.65 L Hgb 10.5 L Hct 32.1 L MPV 11.0 H Neut % (Auto) 81.9 H Lymph % (Auto) 9.9 L Lymph # (Auto) 1.20 L Absolute Neutrophils 9.90 H Potassium 2.6 L* Creatinine 2.0 H Calcium 8.4 L Phosphorus 2.0 L Magnesium 1.5 L Lactate Dehydrogenase Total Protein 5.6 L Albumin 3.1 L Meds: Medications Acetaminophen (Acetaminophen 325 Mg Tablet) 650 mg PO Q4-6HP PRN; Protocol PRN Reason: Per Pain Protocol/Fever > 101 Hydrocodone Bitart/Acetaminophen (Hydrocodone/Apap 5/325mg Tablet) 1 tab PO Q4HP PRN; Protocol PRN Reason: Per Pain Protocol Last Admin: 09/16/20 12:18 Dose: 1 tab Documented by: Amlodipine Besylate (Amlodipine 5 Mg Tablet) 5 mg PO QDAY [facility] Last Admin: 09/16/20 08:16 Dose: 5 mg Documented by: Atorvastatin Calcium (Atorvastatin 10 Mg Tablet) 10 mg PO QHS [facility] Last Admin: 09/15/20 20:14 Dose: 10 mg Documented by: Heparin Sodium (Porcine) (Heparin 5,000 Unit/Ml Vial) 5,000 unit SQ Q12 [facility] Last Admin: 09/16/20 08:16 Dose: 5,000 unit Documented by: Hydralazine HCl (Hydralazine 20 Mg/Ml Vial) 10 mg IV Q4 PRN PRN Reason: Blood Pressure - High Last Admin: 09/16/20 06:58 Dose: 10 mg Documented by: Hydromorphone HCl (Hydromorphone 0.5 Mg/0.5 Ml Syringe) 0.5 mg IV Q2HP PRN; P rotocol PRN Reason: Per Pain Protocol Last Admin: 09/14/20 04:25 Dose: 0.5 mg Documented by: Acetaminophen (Ofirmev) 650 mg in 65 mls @ 130 mls/hr IV Q6HP PRN; Protocol PRN Reason: Per Pain Protocol/Fever > 101 Magnesium Sulfate (Magnesium Sulfate) 2 gm in 50 mls @ 50 mls/hr IV UD PRN PRN Reason: MG = or < 1.7 Last Infusion: 09/14/20 14:30 Dose: Infused Documented by: Potassium Chloride 40 meq/ (Dextrose) 520 mls @ 130 mls/hr IV UD PRN PRN Reason: K+ = or < 3.5 Last Admin: 09/16/20 10:54 Dose: 130 mls/hr Documented by: Melatonin (Melatonin 3 Mg Tablet) 3 mg PO HSP PRN PRN Reason: Insomnia Last Admin: 09/15/20 20:34 Dose: 3 mg Documented by: Ondansetron HCl (Ondansetron 4 Mg/2 Ml Vial) 4 mg IV Q4-6HP PRN; Protocol PRN Reason: Nausea And Vomiting Potassium Chloride (Potassium Chloride 20 Meq Tablet) 20 meq PO BIDCC [facility] Last Admin: 09/16/20 08:16 Dose: 20 meq Documented by: Potassium/Phosphorus/Sodium (Neutra Phos 1 Packet) 2 packet PO DAILY PRN PRN Reason: PHOS <2.5 Last Admin: 09/15/20 08:28 Dose: 2 packet Documented by: Sodium Chloride (0.9 % Sodium Chloride 10 Ml Syringe) 10 ml IV Q8 [facility] Last Admin: 09/16/20 13:24 Dose: Not Given Documented by: Tamsulosin HCl (Tamsulosin 0.4 Mg Capsule) 0.4 mg PO [facility] Last Admin: 09/15/20 20:14 Dose: 0.4 mg Documented by: A/P Narrative A/P Narrative: 74-year-old male with recent history of nephrolithiasis/DIMITRI presents with worsening abdominal distention/nausea consistent with ileus and acute kidney injury. 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 Ongoing postop care per surgery. Colostomy draining well. Await surgical pathology. * Acute kidney injury: Gradual improvement noted, creatinine down from 4 ->1.7 * Hypokalemia improved to 3 with aggressive IV and oral replacement, continue monitoring * Abdominal pain around surgical incision site. Management per surgery * Low phosphorus improving on Neutra-Phos * Runs of V. tach-no further episodes. Continue telemonitoring * History of hypertension on home medications * HLD-home statin * Prophylaxis Heparin Plan: * Continue electrolyte replacement as indicated * Pre-existing medical condition management home medications * Continue diet advancement per surgery * Discharge planning pending improvement in electrolytes * Repeat BMP Time Spent With Patient Time: Total time spent is greater than 50% in coordination of care (as documented) at patient's floor/unit and/or counseling patient:
[2020-09-16] MEDS: MELATONIN 3 MG TABLET PO PRN (20:28)
[2020-09-16] MEDS: TAMSULOSIN 0.4 MG CAPSULE PO SCH (20:28)
[2020-09-16] MEDS: ATORVASTATIN 10 MG TABLET PO SCH (20:28)
[2020-09-17] MEDS: HYDROcodone/APAP 5/325MG TABLET PO PRN ×4 (04:03→20:18)
[2020-09-17] MEDS: 0.9 % SODIUM CHLORIDE 10 ML SYRINGE IV SCH ×3 (04:04→20:18)
[2020-09-17] MEDS: POTASSIUM CHLORIDE 20 MEQ TABLET PO SCH (07:37)
[2020-09-17] MEDS: HEPARIN 5,000 UNIT/ML VIAL SQ SCH ×2 (08:11→20:18)
[2020-09-17] MEDS: amLODIPine 5 MG TABLET PO SCH (08:11)
[2020-09-17] MEDS ORDERED: POTASSIUM CHLORIDE 20 MEQ TABLET PO SCH (08:40)
[2020-09-17 11:27] LABS: Blood Urea Nitrogen 14 mg/dL (8-23); Calcium 8.5 mg/dL (8.6-10.4); Carbon Dioxide 24 mmol/L (22-30); Chloride 101 mmol/L (96-108); Glomerular Filtration Rate 37; Glucose 180 mg/dL (70-105)
--- NOTE | 2020-09-17 11:40 | Internal Med Progress Note ---
SUBJECTIVE Subjective Patient information: Note initiated : 09/17/20 at 11:34 am Service Date, if different from initiated Date: [] Patient: Jean Judge a 74 y/o M admitted on 09/10/20 for Abdominal Pain . Chief Complaint: [] Interval history: Mr. Judge is a 74 year old M with recent hospitalization for obstructive uropathy. He was discharged on 09/03 . Shortly after discharge patient started experiencing abdominal distention with associated pain and dirrhea. Symptoms persisted for the next few days with worsening nausea and pain. He presents today for evaluation. Patient work-up was consistent with acute kidney injury creatinine over 4 and potassium 2.5. Nephrology was consulted. Noncontrast abdominal CT scan consistent distended bowel but resolution of obstructive uropathy with interval passage of stones. Patient was started on crystalloids. NG was placed. Subsequently hospitalist service was consulted for above symptoms. At the time of my evaluation patient is very anxious. He endorses to symptoms above. Describes pain 6-7 out of 10 feels worse with eating. Denies history of significant fever. Patient dysuria or hematuria. Denies fever chills, chest pain or shortness of breath. He appears very uncomfortable distended abdomen. 09/11-patient stable overnight. NG output over 600 cc. Radiology recommends Hypaque enema/abdominal imaging to rule out obstruction. Surgery consulted. Potassium 2.8 on IV replacement. Creatinine down to 3.7. Nephrology on board. No overnight fever chills. Patient appears very uncomfortable with persistent distention 09/12-patient postop day 1 status post expiratory laparotomy with sigmoid colectomy and ostomy placement. Managed per surgery. Adenocarcinoma noted on imaging. Await surgical pathology. Postop care as per surgery. Advancing diet and ostomy care as per surgery. White count 17.2 likely postop stress related, creatinine 3 down from 3.7. Improved potassium at 3.5 with aggressive replacement. 09/13-patient doing well. No overnight events. No additional concerns per nursing staff. Ostomy output fair. No abdominal pain except at the incisional site requiring opioids. Transition to oral opioids. Tolerating diet advancement as per surgery. White count at 16.2. Hemoglobin 10.7, potassium 3 on replacement. Creatinine gradually improving now down to 2.3 from peak of 4. Ongoing postop care per surgery. 09/14-potassium 2.6. Continue aggressive IV and p.o. replacement. Surgery on board. Ostomy draining well. Denies abdominal pain fever chills. Advancing diet per surgery recommendations. No overnight fever chills. Creatinine down to, magnesium 1.5 on replacement. Phosphorus 2 continue Neutra-Phos. Ongoing therapy/ostomy care 09/15-improved renal function creatinine down to 1.5. Tolerating diet. Potassium 2.5 on aggressive replacement. Improving magnesium/phosphorus. Continue therapies as tolerated. Advance diet as per surgery. Anticipate discharge in 48 hours pending electrolyte improvement. Continue therapies. Await surgical pathology 09/16-patient clinically improving. Tolerating diet. Renal function normalized. White count down from 16.2-10.3, no fever chills. Ostomy draining well however patient complains of pain around incision/ostomy site. Surgery made aware by nursing staff. Potassium improved from 2.5-3.1. Continue additional 80 mg of oral potassium/40 IV, creatinine down to 1.7. 09/17-potassium 2.8 despite replacement. Changed to liquid potassium as per nephrology recommendations. Delay discharge by 24 hours due to low potassium. Likely secondary to poor absorption. Constitutional Vitals: Vital Signs Temp Pulse Resp BP Pulse Ox 98.6 F 83 18 140/63 93 09/17/20 11:02 09/17/20 11:02 09/17/20 11:02 09/17/20 11:02 09/17/20 11:02 Period Temp Pulse Resp BP Sys/Becerra Pulse Ox Last 24 Hr 97.8 F-99 F 77-92 16-20 137-171/63-78 93-96 Intake and Output 09/16/20 09/17/20 09/17/20 21:59 05:59 13:59 Intake Total 1300 150 240 Balance 1300 150 240 Weight 83.053 kg Alert oriented Nonlabored breathing Nondistended abdomen Ostomy draining well Intake & Output: Intake & Output 09/16/20 09/17/20 09/17/20 21:59 05:59 13:59 Intake Total 1300 150 240 Balance 1300 150 240 Weight 83.053 kg Intake: IV 520 Potassium Chloride 40 Meq In 520 Dextrose 5% in Water 500 ml @ 130 mls/hr IV UD PRN Rx#: [id number] Oral 780 150 240 Other: Meal Dinner Breakfast Percent of Meal Consumed 100% 100% Feeding Ability Independent Independent Urine Appearance Clear Urine Color Bright Yellow Urine Odor Normal Stool Size Moderate Moderate Moderate Stool Color Brown Brown Stool Consistency Watery Watery Watery Loose Loose Loose # Voids 1 1 1 # Bowel Movements 1 1 2 OBJ DATA Labs CBC & Chem 7: 09/15/20 05:15 09/17/20 09:00 Labs: Abnormal Lab Results 09/17/20 09/16/20 09/15/20 09:00 05:38 05:15 RBC Hgb Hct Neut % (Auto) Lymph % (Auto) Lymph # (Auto) Absolute Neutrophils Potassium 2.8 L* 3.1 L 2.5 L* Creatinine 1.8 H 1.7 H 1.6 H Glucose 180 H Calcium 8.5 L 8.5 L 8.3 L Phosphorus 2.2 L Lactate Dehydrogenase 226 H Total Protein 5.4 L Albumin 2.8 L 09/15/20 05:15 RBC 3.58 L Hgb 10.2 L Hct 31.9 L Neut % (Auto) 78.5 H Lymph % (Auto) 11.9 L Lymph # (Auto) 1.22 L Absolute Neutrophils 8.06 H Potassium Creatinine Glucose Calcium Phosphorus Lactate Dehydrogenase Total Protein Albumin Meds: Medications Acetaminophen (Acetaminophen 325 Mg Tablet) 650 mg PO Q4-6HP PRN; Protocol PRN Reason: Per Pain Protocol/Fever > 101 Hydrocodone Bitart/Acetaminophen (Hydrocodone/Apap 5/325mg Tablet) 1 tab PO Q4HP PRN; Protocol PRN Reason: Per Pain Protocol Last Admin: 09/17/20 08:11 Dose: 1 tab Documented by: Amlodipine Besylate (Amlodipine 5 Mg Tablet) 5 mg PO QDAY [facility] Last Admin: 09/17/20 08:11 Dose: 5 mg Documented by: Atorvastatin Calcium (Atorvastatin 10 Mg Tablet) 10 mg PO QHS [facility] Last Admin: 09/16/20 20:28 Dose: 10 mg Documented by: Heparin Sodium (Porcine) (Heparin 5,000 Unit/Ml Vial) 5,000 unit SQ Q12 [facility] Last Admin: 09/17/20 08:11 Dose: 5,000 unit Documented by: Hydralazine HCl (Hydralazine 20 Mg/Ml Vial) 10 mg IV Q4 PRN PRN Reason: Blood Pressure - High Last Admin: 09/16/20 20:27 Dose: 10 mg Documented by: Hydromorphone HCl (Hydromorphone 0.5 Mg/0.5 Ml Syringe) 0.5 mg IV Q2HP PRN; Protocol PRN Reason: Per Pain Protocol Last Admin: 09/14/20 04:25 Dose: 0.5 mg Documented by: Acetaminophen (Ofirmev) 650 mg in 65 mls @ 130 mls/hr IV Q6HP PRN; Protocol PRN Reason: Per Pain Protocol/Fever > 101 Magnesium Sulfate (Magnesium Sulfate) 2 gm in 50 mls @ 50 mls/hr IV UD PRN PRN Reason: MG = or < 1.7 Last Infusion: 09/14/20 14:30 Dose: Infused Documented by: Potassium Chloride 40 meq/ (Dextrose) 520 mls @ 130 mls/hr IV UD PRN PRN Reason: K+ = or < 3.5 Last Infusion: 09/16/20 15:00 Dose: Infused Documented by: Melatonin (Melatonin 3 Mg Tablet) 3 mg PO HSP PRN PRN Reason: Insomnia Last Admin: 09/16/20 20:28 Dose: 3 mg Documented by: Ondansetron HCl (Ondansetron 4 Mg/2 Ml Vial) 4 mg IV Q4-6HP PRN; Protocol PRN Reason: Nausea And Vomiting Potassium Chloride (Potassium Chloride 20 Meq/15 Ml Ml) 40 meq PT BIDCC [facility] Potassium/Phosphorus/Sodium (Neutra Phos 1 Packet) 2 packet PO DAILY PRN PRN Reason: PHOS <2.5 Last Admin: 09/15/20 08:28 Dose: 2 packet Documented by: Sodium Chloride (0.9 % Sodium Chloride 10 Ml Syringe) 10 ml IV Q8 [facility] Last Admin: 09/17/20 04:04 Dose: 10 ml Documented by: Tamsulosin HCl (Tamsulosin 0.4 Mg Capsule) 0.4 mg PO HS [facility] Last Admin: 09/16/20 20:28 Dose: 0.4 mg Documented by: A/P Assessment and plan (1) Bilateral hydronephrosis: Status: Resolved Narrative A/P Narrative: 74-year-old male with recent history of nephrolithiasis/DIMITRI presents with worsening abdominal distention/nausea consistent with ileus and acute kidney injury. 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 Ongoing postop care per surgery. Colostomy draining well. Await surgical pathology. * Acute on chronic kidney failure: Gradual improvement noted, creatinine down from 4 ->1.7 * Hypokalemia potassium at 2.8. Nephrology recommends liquid potassium 40 twice daily * Abdominal pain around surgical incision site. Management per surgery * Low phosphorus improving on Neutra-Phos * Runs of V. tach-no further episodes. Continue telemonitoring * History of hypertension on home medications * HLD-home statin * Prophylaxis Heparin Plan: * Switch to liquid potassium 40 twice daily * Continue pre-existing medical condition management home medications * Diet per dietitian * Hold discharge until potassium over 3 * Repeat BMP in Am Time Spent With Patient Time: Total time spent is greater than 50% in coordination of care (as documented) at patient's floor/unit and/or counseling patient:
[2020-09-17] MEDS: NACL 0.9% W/KCL 20MEQ 1,000 ML IV SCH (12:33)
[2020-09-17] MEDS: POTASSIUM CHLORIDE 20 MEQ/15 ML ML PT SCH (17:45)
[2020-09-17] MEDS: TAMSULOSIN 0.4 MG CAPSULE PO SCH (20:18)
[2020-09-17] MEDS: ATORVASTATIN 10 MG TABLET PO SCH (20:18)
[2020-09-17] MEDS: hydrALAZINE 20 MG/ML VIAL IV PRN (21:29)
[2020-09-17] MEDS: MELATONIN 3 MG TABLET PO PRN (21:29)
[2020-09-18] MEDS: HYDROcodone/APAP 5/325MG TABLET PO PRN ×4 (01:24→16:51)
[2020-09-18] MEDS: NACL 0.9% W/KCL 20MEQ 1,000 ML IV SCH ×2 (01:26→15:48)
[2020-09-18] MEDS: 0.9 % SODIUM CHLORIDE 10 ML SYRINGE IV SCH ×3 (05:40→20:12)
[2020-09-18 07:02] LABS: Blood Urea Nitrogen 16 mg/dL (8-23); Calcium 8.5 mg/dL (8.6-10.4); Carbon Dioxide 21 mmol/L (22-30); Chloride 104 mmol/L (96-108); Glomerular Filtration Rate 42; Glucose 92 mg/dL (70-105)
[2020-09-18] MEDS: POTASSIUM CHLORIDE 20 MEQ/15 ML ML PT SCH ×2 (07:16→16:51)
[2020-09-18] MEDS: amLODIPine 5 MG TABLET PO SCH (08:06)
[2020-09-18] MEDS: HEPARIN 5,000 UNIT/ML VIAL SQ SCH ×2 (08:07→20:11)
--- NOTE | 2020-09-18 11:37 | Internal Med Progress Note ---
SUBJECTIVE Subjective Patient information: Note initiated : 09/18/20 at 11:34 am Service Date, if different from initiated Date: [] Patient: Jean Judge a 74 y/o M admitted on 09/10/20 for Abdominal Pain . Chief Complaint: [] Interval history: Mr. Judge is a 74 year old M with recent hospitalization for obstructive uropathy. He was discharged on 09/03 . Shortly after discharge patient started experiencing abdominal distention with associated pain and dirrhea. Symptoms persisted for the next few days with worsening nausea and pain. He presents today for evaluation. Patient work-up was consistent with acute kidney injury creatinine over 4 and potassium 2.5. Nephrology was consulted. Noncontrast abdominal CT scan consistent distended bowel but resolution of obstructive uropathy with interval passage of stones. Patient was started on crystalloids. NG was placed. Subsequently hospitalist service was consulted for above symptoms. At the time of my evaluation patient is very anxious. He endorses to symptoms above. Describes pain 6-7 out of 10 feels worse with eating. Denies history of significant fever. Patient dysuria or hematuria. Denies fever chills, chest pain or shortness of breath. He appears very uncomfortable distended abdomen. 09/11-patient stable overnight. NG output over 600 cc. Radiology recommends Hypaque enema/abdominal imaging to rule out obstruction. Surgery consulted. Potassium 2.8 on IV replacement. Creatinine down to 3.7. Nephrology on board. No overnight fever chills. Patient appears very uncomfortable with persistent distention 09/12-patient postop day 1 status post expiratory laparotomy with sigmoid colectomy and ostomy placement. Managed per surgery. Adenocarcinoma noted on imaging. Await surgical pathology. Postop care as per surgery. Advancing diet and ostomy care as per surgery. White count 17.2 likely postop stress related, creatinine 3 down from 3.7. Improved potassium at 3.5 with aggressive replacement. 09/13-patient doing well. No overnight events. No additional concerns per nursing staff. Ostomy output fair. No abdominal pain except at the incisional site requiring opioids. Transition to oral opioids. Tolerating diet advancement as per surgery. White count at 16.2. Hemoglobin 10.7, potassium 3 on replacement. Creatinine gradually improving now down to 2.3 from peak of 4. Ongoing postop care per surgery. 09/14-potassium 2.6. Continue aggressive IV and p.o. replacement. Surgery on board. Ostomy draining well. Denies abdominal pain fever chills. Advancing diet per surgery recommendations. No overnight fever chills. Creatinine down to, magnesium 1.5 on replacement. Phosphorus 2 continue Neutra-Phos. Ongoing therapy/ostomy care 09/15-improved renal function creatinine down to 1.5. Tolerating diet. Potassium 2.5 on aggressive replacement. Improving magnesium/phosphorus. Continue therapies as tolerated. Advance diet as per surgery. Anticipate discharge in 48 hours pending electrolyte improvement. Continue therapies. Await surgical pathology 09/16-patient clinically improving. Tolerating diet. Renal function normalized. White count down from 16.2-10.3, no fever chills. Ostomy draining well however patient complains of pain around incision/ostomy site. Surgery made aware by nursing staff. Potassium improved from 2.5-3.1. Continue additional 80 mg of oral potassium/40 IV, creatinine down to 1.7. 09/17-potassium 2.8 despite replacement. Changed to liquid potassium as per nephrology recommendations. Delay discharge by 24 hours due to low potassium. Likely secondary to poor absorption. 09/18-patient not feeling well this morning.'s potassium however 3.7. On gradual potassium replacement. No overnight fever chills. Complains of pain around ostomy site. Creatinine steady at 1.6, hemodynamic stable. Will likely discharge in 24 hours with home health services. Constitutional Vitals: Vital Signs Temp Pulse Resp BP Pulse Ox 97.7 F 86 18 149/79 96 09/18/20 11:28 09/18/20 11:28 09/18/20 11:28 09/18/20 11:28 09/18/20 11:28 Period Temp Pulse Resp BP Sys/Becerra Pulse Ox Last 24 Hr 97.5 F-99.4 F 76-86 18-20 135-154/73-79 93-98 Intake and Output 09/17/20 09/18/20 09/18/20 21:59 05:59 13:59 Intake Total 950 1086 Output Total 1575 725 250 Balance -625 361 -250 Weight 82.781 kg Alert oriented Nonlabored breathing Anxious Ostomy draining well Intake & Output: Intake & Output 09/17/20 09/18/20 09/18/20 21:59 05:59 13:59 Intake Total 950 1086 Output Total 1575 725 250 Balance -625 361 -250 Weight 82.781 kg Intake: IV 966 NaCl 0.9% W/KCl 20Meq 1000ML 1, 966 000 ml @ 75 mls/hr IV .[id number] [facility] Rx#:[id number] Oral 950 120 Output: Void Amount 75 225 150 Urine/Stool Mix 200 Stool 1300 500 100 Other: Meal Lunch Breakfast Percent of Meal Consumed 100% 100% Feeding Ability Independent Independent Urine Appearance Clear Clear Urine Color Bright Yellow Bright Yellow Urine Odor Normal Stool Size Moderate Moderate Stool Color Brown Brown Stool Consistency Liquid Liquid Loose Loose # Voids 1 # Bowel Movements 10 OBJ DATA Labs CBC & Chem 7: 09/15/20 05:15 09/18/20 05:11 Labs: Abnormal Lab Results 09/18/20 09/17/20 09/16/20 05:11 09:00 05:38 Potassium 2.8 L* 3.1 L Carbon Dioxide 21 L Creatinine 1.6 H 1.8 H 1.7 H Glucose 180 H Calcium 8.5 L 8.5 L 8.5 L Meds: Medications Acetaminophen (Acetaminophen 325 Mg Tablet) 650 mg PO Q4-6HP PRN; Protocol PRN Reason: Per Pain Protocol/Fever > 101 Hydrocodone Bitart/Acetaminophen (Hydrocodone/Apap 5/325mg Tablet) 1 tab PO Q4HP PRN; Protocol PRN Reason: Per Pain Protocol Last Admin: 09/18/20 09:48 Dose: 1 tab Documented by: Amlodipine Besylate (Amlodipine 5 Mg Tablet) 5 mg PO QDAY [facility] Last Admin: 09/18/20 08:06 Dose: 5 mg Documented by: Atorvastatin Calcium (Atorvastatin 10 Mg Tablet) 10 mg PO QHS [facility] Last Admin: 09/17/20 20:18 Dose: 10 mg Documented by: Heparin Sodium (Porcine) (Heparin 5,000 Unit/Ml Vial) 5,000 unit SQ Q12 [facility] Last Admin: 09/18/20 08:07 Dose: 5,000 unit Documented by: Hydralazine HCl (Hydralazine 20 Mg/Ml Vial) 10 mg IV Q4 PRN PRN Reason: Blood Pressure - High Last Admin: 09/17/20 21:29 Dose: 10 mg Documented by: Hydromorphone HCl (Hydromorphone 0.5 Mg/0.5 Ml Syringe) 0.5 mg IV Q2HP PRN; Protocol PRN Reason: Per Pain Protocol Last Admin: 09/14/20 04:25 Dose: 0.5 mg Documented by: Acetaminophen (Ofirmev) 650 mg in 65 mls @ 130 mls/hr IV Q6HP PRN; Protocol PRN Reason: Per Pain Protocol/Fever > 101 Magnesium Sulfate (Magnesium Sulfate) 2 gm in 50 mls @ 50 mls/hr IV UD PRN PRN Reason: MG = or < 1.7 Last Infusion: 09/14/20 14:30 Dose: Infused Documented by: Potassium Chloride 40 meq/ (Dextrose) 520 mls @ 130 mls/hr IV UD PRN PRN Reason: K+ = or < 3.5 Last Infusion: 09/16/20 15:00 Dose: Infused Documented by: Potassium Chloride/Sodium Chloride (Nacl 0.9% W/Kcl 20meq 1000ml) 1,000 mls @ 75 mls/hr IV .[id number] [facility] Last Admin: 09/18/20 01:26 Dose: 75 mls/hr Documented by: Melatonin (Melatonin 3 Mg Tablet) 3 mg PO HSP PRN PRN Reason: Insomnia Last Admin: 09/17/20 21:29 Dose: 3 mg Documented by: Ondansetron HCl (Ondansetron 4 Mg/2 Ml Vial) 4 mg IV Q4-6HP PRN; Protocol PRN Reason: Nausea And Vomiting Potassium Chloride (Potassium Chloride 20 Meq/15 Ml Ml) 40 meq PT BIDCC [facility] Last Admin: 09/18/20 07:16 Dose: 40 meq Documented by: Potassium/Phosphorus/Sodium (Neutra Phos 1 Packet) 2 packet PO DAILY PRN PRN Reason: PHOS <2.5 Last Admin: 09/15/20 08:28 Dose: 2 packet Documented by: Sodium Chloride (0.9 % Sodium Chloride 10 Ml Syringe) 10 ml IV Q8 [facility] Last Admin: 09/18/20 05:40 Dose: Not Given Documented by: Tamsulosin HCl (Tamsulosin 0.4 Mg Capsule) 0.4 mg PO HS [facility] Last Admin: 09/17/20 20:18 Dose: 0.4 mg Documented by: A/P Narrative A/P Narrative: 74-year-old male with recent history of nephrolithiasis/DIMITRI presents with worsening abdominal distention/nausea consistent with ileus and acute kidney injury. 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 Ongoing postop care per surgery. Colostomy draining well. Await surgical pathology. * Acute on chronic kidney failure: Gradual improvement noted, creatinine down from 4 ->1.6 * Hypokalemia -much improved with twice daily oral potassium. 3.7 today. * Abdominal pain around surgical incision site. Management per surgery * Low phosphorus improving on Neutra-Phos * Runs of V. tach-no further episodes. Continue telemonitoring * History of hypertension on home medications * HLD-home statin * Prophylaxis Heparin Plan: * Continue twice daily liquid potassium * Continue pre-existing medical condition management home medications * Possible discharge in 24 hours with home health services * Repeat BMP in evening Time Spent With Patient Time: Total time spent is greater than 50% in coordination of care (as documented) at patient's floor/unit and/or counseling patient:
--- NOTE | 2020-09-18 12:57 | General Surgery Progress Note ---
SUBJECTIVE Subjective Patient information: Note initiated : 09/18/20 at 12:55 pm Service Date, if different from initiated Date: [] Patient: Jean Judge 74 y/o M admitted on 09/10/20 for Abdominal Pain . Chief Complaint: [] Principal diagnosis: Sigmoid colectomy with ostomy Interval history: Patient is doing well except for mild incisional discomfort. He states that he does not feel comfortable taking care of his stoma. His stoma is functioning adequately. P.o. intake is good. He complains of mild weakness but this is anticipated. Renal function is returning to normal. Constitutional Vitals: Vital Signs Temp Pulse Resp BP Pulse Ox 97.7 F 86 18 149/79 96 09/18/20 11:28 09/18/20 11:28 09/18/20 11:28 09/18/20 11:28 09/18/20 11:28 Period Temp Pulse Resp BP Sys/Becerra Pulse Ox Last 24 Hr 97.5 F-99.4 F 76-86 18-20 135-154/73-79 93-98 Intake and Output 09/17/20 09/18/20 09/18/20 21:59 05:59 13:59 Intake Total 950 1086 Output Total 1575 725 250 Balance -625 361 -250 Weight 182 lb 8 oz Intake & Output: Intake & Output 09/17/20 09/18/20 09/18/20 21:59 05:59 13:59 Intake Total 950 1086 Output Total 1575 725 250 Balance -625 361 -250 Weight 182 lb 8 oz Intake: IV 966 NaCl 0.9% W/KCl 20Meq 1000ML 1, 966 000 ml @ 75 mls/hr IV .[id number] [facility] Rx#:[id number] Oral 950 120 Output: Void Amount 75 225 150 Urine/Stool Mix 200 Stool 1300 500 100 Other: Meal Lunch Breakfast Percent of Meal Consumed 100% 100% Feeding Ability Independent Independent Urine Appearance Clear Clear Urine Color Bright Yellow Bright Yellow Urine Odor Normal Stool Size Moderate Moderate Stool Color Brown Brown Stool Consistency Liquid Liquid Loose Loose # Voids 1 # Bowel Movements 10 Eye Eye exam: Present EOMI and normal appearance Pupils: Present PERRL ENT ENT exam: Present mucous membranes moist, normal exam and normal oropharynx Neck Neck exam: Present full ROM and normal inspection; Absent tenderness Respiratory Respiratory exam: Present CTAB; Absent rales, rhonchi and wheezes Cardiovascular Cardiovascular exam: Present normal rate and rhythm, RRR, +S1 and +S2 GI/Abdominal GI/Abdominal exam: Present normal bowel sounds and soft Additional comments: Incision is healing uneventfully; stoma appears to be healthy; there is no major distention. Neurological Exam Neurological exam: Present alert, normal gait and oriented X3 Psychiatric Psychiatric exam: Present normal affect and normal mood A/P Assessment and plan (1) Stricture of sigmoid colon: Status: Acute (2) Diverticulitis large intestine: Status: Acute (3) Acute kidney injury with acute tubular necrosis: Status: Acute Narrative A/P Narrative: Patient is clinically stable. He is stable for discharge but will need home health visits for ostomy management. Time Spent With Patient Time: Total time spent is greater than 50% in coordination of care (as documented) at patient's floor/unit and/or counseling patient:
[2020-09-18] MEDS: TAMSULOSIN 0.4 MG CAPSULE PO SCH (20:11)
[2020-09-18] MEDS: ATORVASTATIN 10 MG TABLET PO SCH (20:11)
[2020-09-19] MEDS: HYDROcodone/APAP 5/325MG TABLET PO PRN ×2 (00:12→18:34)
[2020-09-19] MEDS: hydrALAZINE 20 MG/ML VIAL IV PRN (03:14)
[2020-09-19] MEDS: NACL 0.9% W/KCL 20MEQ 1,000 ML IV SCH ×2 (03:18→15:50)
[2020-09-19] MEDS: 0.9 % SODIUM CHLORIDE 10 ML SYRINGE IV SCH ×3 (05:32→20:46)
[2020-09-19] MEDS: amLODIPine 5 MG TABLET PO SCH (08:23)
[2020-09-19] MEDS: HEPARIN 5,000 UNIT/ML VIAL SQ SCH ×2 (08:23→21:28)
[2020-09-19] MEDS: POTASSIUM CHLORIDE 20 MEQ/15 ML ML PT SCH ×2 (08:25→16:45)
[2020-09-19 10:08] LABS: ALT/SGPT 39 U/L (<40); AST/SGOT 38 U/L (<40); Albumin 3.5 gm/dL (3.2-5.2); Albumin/Globulin Ratio 1.1 (1.0-2.3); Alkaline Phosphatase 73 U/L (39-117); Bilirubin,Direct < 0.2 mg/dL (0-0.3); Bilirubin,Total 0.5 mg/dL (0.1-1.0); Blood Urea Nitrogen 12 mg/dL (8-23); Calcium 9.1 mg/dL (8.6-10.4); Carbon Dioxide 21 mmol/L (22-30); Chloride 101 mmol/L (96-108); Globulin 3.3 gm/dL (2.2-3.7); Glomerular Filtration Rate 60; Glucose 97 mg/dL (70-105); Lactate Dehydrogenase 263 U/L (135-225); Phosphorous 2.8 mg/dL (2.5-4.5); Triglycerides 143 mg/dL (<150); Uric Acid 5.2 mg/dL (2.5-8.0)
--- NOTE | 2020-09-19 10:52 | Internal Med Progress Note ---
SUBJECTIVE Subjective Patient information: Note initiated : 09/19/20 at 10:49 am Service Date, if different from initiated Date: [] Patient: Jean Judge a 74 y/o M admitted on 09/10/20 for Abdominal Pain . Chief Complaint: [] Principal diagnosis: Sigmoid colectomy with ostomy Interval history: Mr. Judge is a 74 year old M with recent hospitalization for obstructive uropathy. He was discharged on 09/03 . Shortly after discharge patient started experiencing abdominal distention with associated pain and dirrhea. Symptoms persisted for the next few days with worsening nausea and pain. He presents today for evaluation. Patient work-up was consistent with acute kidney injury creatinine over 4 and potassium 2.5. Nephrology was consulted. Noncontrast abdominal CT scan consistent distended bowel but resolution of obstructive uropathy with interval passage of stones. Patient was started on crystalloids. NG was placed. Subsequently hospitalist service was consulted for above symptoms. At the time of my evaluation patient is very anxious. He endorses to symptoms above. Describes pain 6-7 out of 10 feels worse with eating. Denies history of significant fever. Patient dysuria or hematuria. Denies fever chills, chest pain or shortness of breath. He appears very uncomfortable distended abdomen. 09/11-patient stable overnight. NG output over 600 cc. Radiology recommends Hypaque enema/abdominal imaging to rule out obstruction. Surgery consulted. Potassium 2.8 on IV replacement. Creatinine down to 3.7. Nephrology on board. No overnight fever chills. Patient appears very uncomfortable with persistent distention 09/12-patient postop day 1 status post expiratory laparotomy with sigmoid co lectomy and ostomy placement. Managed per surgery. Adenocarcinoma noted on imaging. Await surgical pathology. Postop care as per surgery. Advancing diet and ostomy care as per surgery. White count 17.2 likely postop stress related, creatinine 3 down from 3.7. Improved potassium at 3.5 with aggressive replacement. 09/13-patient doing well. No overnight events. No additional concerns per nu ing staff. Ostomy output fair. No abdominal pain except at the incisional site requiring opioids. Transition to oral opioids. Tolerating diet advancement as per surgery. White count at 16.2. Hemoglobin 10.7, potassium 3 on replacement. Creatinine gradually improving now down to 2.3 from peak of 4. Ongoing postop care per surgery. 09/14-potassium 2.6. Continue aggressive IV and p.o. replacement. Surgery on board. Ostomy draining well. Denies abdominal pain fever chills. Advancing d iet per surgery recommendations. No overnight fever chills. Creatinine down to, magnesium 1.5 on replacement. Phosphorus 2 continue Neutra-Phos. Ongoing therapy/ostomy care 09/15-improved renal function creatinine down to 1.5. Tolerating diet. Potassium 2.5 on aggressive replacement. Improving magnesium/phosphorus. Continue therapies as tolerated. Advance diet as per surgery. Anticipate discharge in 48 hours pending electrolyte improvement. Continue therapies. Await surgical pathology 09/16-patient clinically improving. Tolerating diet. Renal function normalized. White count down from 16.2-10.3, no fever chills. Ostomy draining well however patient complains of pain around incision/ostomy site. Surgery made aware by nursing staff. Potassium improved from 2.5-3.1. Continue additional 80 mg of oral potassium/40 IV, creatinine down to 1.7. 09/17-potassium 2.8 despite replacement. Changed to liquid potassium as per nephrology recommendations. Delay discharge by 24 hours due to low potassium. Likely secondary to poor absorption. 09/18-patient not feeling well this morning.'s potassium however 3.7. On gradual potassium replacement. No overnight fever chills. Complains of pain around ostomy site. Creatinine steady at 1.6, hemodynamic stable. Will likely discha rge in 24 hours with home health services. 09/19-patient doing well. No overnight events. Anticipate discharge in 24 hours with home health services. Potassium up to 3.9. No significant pain at ostomy site. No concerns per nursing staff Constitutional Vitals: Vital Signs Temp Pulse Resp BP Pulse Ox 98.3 F 77 18 147/75 97 09/19/20 07:46 09/19/20 07:46 09/19/20 07:46 09/19/20 07:46 09/19/20 07:46 Period Temp Pulse Resp BP Sys/Becerra Pulse Ox Last 24 Hr 97.7 F-99.3 F 77-86 18-22 126-174/67-79 95-98 Intake and Output 03/20/21 03/21/21 03/21/21 21:59 05:59 13:59 Intake Total 1000 Output Total 246 129 6246 Balance 350 -375 -1000 Weight 81.601 kg Alert oriented Nonlabored breathing Ostomy draining well No anxiety Intake & Output: Intake & Output 09/18/20 09/19/20 09/19/20 21:59 05:59 13:59 Intake Total 1000 Output Total 817 561 6572 Balance 350 -375 -1000 Weight 81.601 kg Intake: IV 1000 NaCl 0.9% W/KCl 20Meq 1000ML 1, 1000 000 ml @ 75 mls/hr IV .[id number] [facility] Rx#:[id number] Output: Void Amount 450 125 700 Stool 200 250 300 Other: Meal Dinner Percent of Meal Consumed 100% Urine Appearance Clear Cloudy Clear Urine Color Bright Yellow Bright Yellow Bright Yellow Urine Odor Normal Stool Color Brown Brown Stool Consistency Liquid Liquid Watery OBJ DATA Labs CBC & Chem 7: 09/15/20 05:15 09/19/20 08:16 Labs: Abnormal Lab Results 09/19/20 09/18/20 09/17/20 08:16 05:11 09:00 Sodium 131 L Potassium 2.8 L* Carbon Dioxide 21 L 21 L Creatinine 1.6 H 1.8 H Glucose 180 H Calcium 8.5 L 8.5 L Lactate Dehydrogenase 263 H Meds: Medications Acetaminophen (Acetaminophen 325 Mg Tablet) 650 mg PO Q4-6HP PRN; Protocol PRN Reason: Per Pain Protocol/Fever > 101 Hydrocodone Bitart/Acetaminophen (Hydrocodone/Apap 5/325mg Tablet) 1 tab PO Q4HP PRN; Protocol PRN Reason: Per Pain Protocol Last Admin: 09/19/20 00:12 Dose: 1 tab Documented by: Amlodipine Besylate (Amlodipine 5 Mg Tablet) 5 mg PO QDAY [facility] Last Admin: 09/19/20 08:23 Dose: 5 mg Documented by: Atorvastatin Calcium (Atorvastatin 10 Mg Tablet) 10 mg PO QHS [facility] Last Admin: 09/18/20 20:11 Dose: 10 mg Documented by: Heparin Sodium (Porcine) (Heparin 5,000 Unit/Ml Vial) 5,000 unit SQ Q12 [facility] Last Admin: 09/19/20 08:23 Dose: 5,000 unit Documented by: Hydralazine HCl (Hydralazine 20 Mg/Ml Vial) 10 mg IV Q4 PRN PRN Reason: Blood Pressure - High Last Admin: 09/19/20 03:14 Dose: 10 mg Documented by: Hydromorphone HCl (Hydromorphone 0.5 Mg/0.5 Ml Syringe) 0.5 mg IV Q2HP PRN; Protocol PRN Reason: Per Pain Protocol Last Admin: 09/14/20 04:25 Dose: 0.5 mg Documented by: Acetaminophen (Ofirmev) 650 mg in 65 mls @ 130 mls/hr IV Q6HP PRN; Protocol PRN Reason: Per Pain Protocol/Fever > 101 Magnesium Sulfate (Magnesium Sulfate) 2 gm in 50 mls @ 50 mls/hr IV UD PRN PRN Reason: MG = or < 1.7 Last Infusion: 09/14/20 14:30 Dose: Infused Documented by: Potassium Chloride 40 meq/ (Dextrose) 520 mls @ 130 mls/hr IV UD PRN PRN Reason: K+ = or < 3.5 Last Infusion: 09/16/20 15:00 Dose: Infused Documented by: Potassium Chloride/Sodium Chloride (Nacl 0.9% W/Kcl 20meq 1000ml) 1,000 mls @ 75 mls/hr IV .[id number] [facility] Last Admin: 09/19/20 03:18 Dose: 75 mls/hr Documented by: Melatonin (Melatonin 3 Mg Tablet) 3 mg PO HSP PRN PRN Reason: Insomnia Last Admin: 09/17/20 21:29 Dose: 3 mg Documented by: Ondansetron HCl (Ondansetron 4 Mg/2 Ml Vial) 4 mg IV Q4-6HP PRN; Protocol PRN Reason: Nausea And Vomiting Last Admin: 09/19/20 03:21 Dose: 4 mg Documented by: Potassium Chloride (Potassium Chloride 20 Meq/15 Ml Ml) 40 meq PT BIDCC [facility] Last Admin: 09/19/20 08:25 Dose: 40 meq Documented by: Potassium/Phosphorus/Sodium (Neutra Phos 1 Packet) 2 packet PO DAILY PRN PRN Reason: PHOS <2.5 Last Admin: 09/15/20 08:28 Dose: 2 packet Documented by: Sodium Chloride (0.9 % Sodium Chloride 10 Ml Syringe) 10 ml IV Q8 [facility] Last Admin: 09/19/20 05:32 Dose: 10 ml Documented by: Tamsulosin HCl (Tamsulosin 0.4 Mg Capsule) 0.4 mg PO [facility] Last Admin: 09/18/20 20:11 Dose: 0.4 mg Documented by: A/P Narrative A/P Narrative: 74-year-old male with recent history of nephrolithiasis/DIMITRI presents with worsening abdominal distention/nausea consistent with ileus and acute kidney injury. 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 Ongoing postop care per surgery. Colostomy draining well. * Acute on chronic kidney failure: Gradual improvement noted, creatinine down from 4 ->1.2 * Hypokalemia -resolved on oral potassium. 3.9 today. * Abdominal pain around surgical incision site. Continue management per surgery * Low phosphorus improving on Neutra-Phos * Runs of V. tach-no further episodes. Continue telemonitoring * History of hypertension on home medications * HLD-home statin * Prophylaxis Heparin Plan: * Continue twice daily liquid potassium as recommended by nephrology * Continue pre-existing medical condition management home medications * Possible discharge in 24 hours with home health services Time Spent With Patient Time: Total time spent is greater than 50% in coordination of care (as documented) at patient's floor/unit and/or counseling patient:
--- NOTE | 2020-09-19 13:02 | Discharge Summary ---
Discharge Provider Provider Patient information: Note initiated : 09/19/20 at 12:58 pm Service Date, if different from initiated Date: [] Patient: Jean Judge 74 y/o M admitted on 09/10/20 for Abdominal Pain . Chief Complaint: [] Date of admission: 09/10/20 17:45 Discharge date: 09/20/20 Primary care physician: Migdalia Lei Consults: 09/10/20 Consult to Physician [CONS] Stat Comment: Consulting Provider: Ezekiel Sahu Reason For Exam: Physician to Consult Consult to Physician [CONS] Stat Comment: Consulting Provider: Yfn George Reason For Exam: Physician to Consult 09/11/20 08:37 Consult to Physician [CONS] Routine Comment: Consulting Provider: Glenroy Weber Reason For Exam: Physician to Consult Discharge Meds Discharge Medications Home Medications atorvastatin 10 mg PO QHS 09/02/20 [History Confirmed 09/10/20 Last Taken 08/29/20 08:00] ondansetron HCl 4 mg PO Q6H PRN #12 tab 09/03/20 [Rx Confirmed 09/10/20 Last Taken Unknown] tamsulosin 0.4 mg PO HS #30 cap 09/03/20 [Rx Confirmed 09/10/20 Last Taken Unknown] amlodipine 5 mg PO QDAY 09/10/20 [History Confirmed 09/10/20 Last Taken Unknown] losartan 100 mg PO QDAY 09/10/20 [History Confirmed 09/10/20 Last Taken Unknown] COURSE Hospital Course Hospital course: Principal diagnosis: Sigmoid colectomy with ostomy Interval history: Mr. Judge is a 74 year old M with recent hospitalization for obstructive uropathy. He was discharged on 09/03 . Shortly after discharge patient started experiencing abdominal distention with associated pain and dirrhea. Symptoms persisted for the next few days with worsening nausea and pain. He presents today for evaluation. Patient work-up was consistent with acute kidney injury creatinine over 4 and potassium 2.5. Nephrology was consulted. Noncontrast abdominal CT scan consistent distended bowel but resolution of obstructive uropathy with interval passage of stones. Patient was started on crystalloids. NG was placed. Subsequently hospitalist service was consulted for above symptoms. At the time of my evaluation patient is very anxious. He endorses to symptoms above. Describes pain 6-7 out of 10 feels worse with eating. Denies history of significant fever. Patient dysuria or hematuria. Denies fever chills, chest pain or shortness of breath. He appears very uncomfortable distended abdomen. 09/11-patient stable overnight. NG output over 600 cc. Radiology recommends Hypaque enema/abdominal imaging to rule out obstruction. Surgery consulted. Potassium 2.8 on IV replacement. Creatinine down to 3.7. Nephrology on board. No overnight fever chills. Patient appears very uncomfortable with persistent distention 09/12-patient postop day 1 status post expiratory laparotomy with sigmoid colectomy and ostomy placement. Managed per surgery. Adenocarcinoma noted on imaging. Await surgical pathology. Postop care as per surgery. Advancing diet and ostomy care as per surgery. White count 17.2 likely postop stress related, creatinine 3 down from 3.7. Improved potassium at 3.5 with aggressive replacement. 09/13-patient doing well. No overnight events. No additional concerns per nursing staff. Ostomy output fair. No abdominal pain except at the incisional site requiring opioids. Transition to oral opioids. Tolerating diet advancement as per surgery. White count at 16.2. Hemoglobin 10.7, potassium 3 on replacement. Creatinine gradually improving now down to 2.3 from peak of 4. Ongoing postop care per surgery. 09/14-potassium 2.6. Continue aggressive IV and p.o. replacement. Surgery on board. Ostomy draining well. Denies abdominal pain fever chills. Advancing diet per surgery recommendations. No overnight fever chills. Creatinine down to, magnesium 1.5 on replacement. Phosphorus 2 continue Neutra-Phos. Ongoing therapy/ostomy care 09/15-improved renal function creatinine down to 1.5. Tolerating diet. Potassium 2.5 on aggressive replacement. Improving magnesium/phosphorus. Continue therapies as tolerated. Advance diet as per surgery. Anticipate discharge in 48 hours pending electrolyte improvement. Continue therapies. Nereyda it surgical pathology 09/16-patient clinically improving. Tolerating diet. Renal function normalized. White count down from 16.2-10.3, no fever chills. Ostomy draining well however patient complains of pain around incision/ostomy site. Surgery made aware by nursing staff. Potassium improved from 2.5-3.1. Continue additional 80 mg of oral potassium/40 IV, creatinine down to 1.7. 3/19-potassium 2.8 despite replacement. Changed to liquid potassium as per nephrology recommendations. Delay discharge by 24 hours due to low potassium. Likely secondary to poor absorption. 09/18-patient not feeling well this morning.'s potassium however 3.7. On gradual potassium replacement. No overnight fever chills. Complains of pain around ostomy site. Creatinine steady at 1.6, hemodynamic stable. Will likely discharge in 24 hours with home health services. 09/19-patient doing well. No overnight events. Anticipate discharge in 24 hours with home health services. Potassium up to 3.9. No significant pain at ostomy site. No concerns per nursing staff 09/20 Patient doing well. Stable for discharge. 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 Ongoing postop care per surgery. Colostomy draining well. Acute on chronic kidney failure: Gradual improvement noted, creatinine down from 4 ->1.2 Hypokalemia -resolved on oral potassium. 3.9 today. Abdominal pain around surgical incision site. Continue management per surgery Low phosphorus improving on Neutra-Phos Runs of V. tach-no further episodes. Continue telemonitoring History of hypertension on home medications HLD-home statin Discharge diagnosis: Sigmoid adenocarcinoma and large bowel obstruction acute kidney injury Time Spent with Patient Time attestation: Total time spent providing and/or coordinating discharge services: Time spent: Greater than 30 minutes EXAM Constitutional Vitals: Temp Pulse Resp BP Pulse Ox 98.8 F 77 16 157/78 97 09/19/20 11:33 09/19/20 11:33 09/19/20 11:33 09/19/20 11:33 09/19/20 11:33 Discharge Data Data Completed and Pending Labs on day of discharge: Labs from last 24 hours 09/19/20 08:16 Sodium 131 L Potassium 3.9 Chloride 101 Carbon Dioxide 21 L Anion Gap 9.0 BUN 12 Creatinine 1.2 GFR Calculation 60 Glucose 97 Uric Acid 5.2 Calcium 9.1 Phosphorus 2.8 Magnesium 1.7 Total Bilirubin 0.5 Direct Bilirubin < 0.2 GGT 41 AST 38 ALT 39 Alkaline Phosphatase 73 Lactate Dehydrogenase 263 H Total Protein 6.8 Albumin 3.5 Globulin 3.3 Albumin/Globulin Ratio 1.1 Triglycerides 143 Discharge Plan Patient/Caregiver Discharge Instructions Activity: increase activity as tolerated Diet: Low Fiber Prescriptions: Continued atorvastatin 10 mg Tablet 10 mg PO QHS RF: 0 tamsulosin 0.4 mg Capsule 0.4 mg PO HS Qty: 30 RF: 0 ondansetron HCl 4 mg Tablet 4 mg PO Q6H PRN (Reason: Nausea) Qty: 12 RF: 0 amlodipine 5 mg Tablet 5 mg PO QDAY RF: 0 losartan 100 mg Tablet 100 mg PO QDAY RF: 0 Follow Up Plan Follow up with: Glenroy Weber MD [Physician] - Migdalia Lei ARNP [Primary Care Provider] - Patient Disposition: Home Health Service Prognosis: Fair Rehab Potential: Fair Overall status at discharge: patient is progressing back to baseline Discharge Orders: Discharge Order (Routine); Ordered 09/20/20 Ordered By: Ede Iqbal
[2020-09-19] MEDS: TAMSULOSIN 0.4 MG CAPSULE PO SCH (21:28)
[2020-09-19] MEDS: ATORVASTATIN 10 MG TABLET PO SCH (21:28)
[2020-09-20] MEDS: NACL 0.9% W/KCL 20MEQ 1,000 ML IV SCH ×2 (03:34→08:53)
[2020-09-20] MEDS: hydrALAZINE 20 MG/ML VIAL IV PRN (03:49)
[2020-09-20] MEDS: HYDROcodone/APAP 5/325MG TABLET PO PRN (04:28)
[2020-09-20] MEDS: 0.9 % SODIUM CHLORIDE 10 ML SYRINGE IV SCH (04:29)
--- NOTE | 2020-09-20 08:23 | General Surgery Progress Note ---
SUBJECTIVE Subjective Patient information: Note initiated : 09/20/20 at 8:21 am Service Date, if different from initiated Date: [] Patient: Jean Judge 74 y/o M admitted on 09/10/20 for Abdominal Pain . Chief Complaint: [] Principal diagnosis: Sigmoid colectomy with ostomy Interval history: Postop exploratory laparotomy, end ostomy for diverticular stricture. Patient is doing well, tolerating regular diet, pain is controlled, ostomy is functioning. Constitutional Vitals: Vital Signs Temp Pulse Resp BP Pulse Ox 98.9 F 78 20 151/74 95 09/20/20 03:38 09/20/20 03:38 09/20/20 03:38 09/20/20 04:26 09/20/20 03:38 Period Temp Pulse Resp BP Sys/Becerra Pulse Ox Last 24 Hr 98.1 F-98.9 F 74-79 16-26 140-168/74-78 95-97 Intake and Output 09/19/20 09/20/20 09/20/20 21:59 05:59 13:59 Intake Total 1114 126 Output Total 750 950 325 Balance 364 -824 -325 Weight 178 lb 9.6 oz Intake & Output: Intake & Output 09/19/20 09/20/20 09/20/20 21:59 05:59 13:59 Intake Total 1114 126 Output Total 750 950 325 Balance 364 -824 -325 Weight 178 lb 9.6 oz Intake: IV 874 126 NaCl 0.9% W/KCl 20Meq 1000ML 1, 874 126 000 ml @ 75 mls/hr IV .[id number] [facility] Rx#:[id number] Oral 240 Output: Void Amount 500 575 325 Stool 250 375 Other: Meal Lunch Percent of Meal Consumed 100% Feeding Ability Independent Urine Appearance Clear Clear Clear Urine Color Pale Straw Straw Urine Odor Normal Stool Consistency Liquid General appearance: cooperative and no acute distress GI/Abdominal GI/Abdominal exam: Present soft; Absent distended and tenderness Additional comments: Ostomy with duskiness around the outside, however functioning and pink below the skin level. A/P Narrative A/P Narrative: Postop exploratory laparotomy for diverticular stricture and near complete large bowel obstruction. Patient is progressing as expected, no concerns with the ostomy at this time. Patient is clear for discharge with home health, follow-up with in or Sunday this week for staple removal and wound check. Time Spent With Patient Time: Total time spent is greater than 50% in coordination of care (as documented) at patient's floor/unit and/or counseling patient:
[2020-09-20] MEDS: POTASSIUM CHLORIDE 20 MEQ/15 ML ML PT SCH (08:35)
[2020-09-20] MEDS: HEPARIN 5,000 UNIT/ML VIAL SQ SCH (08:36)
[2020-09-20] MEDS: amLODIPine 5 MG TABLET PO SCH (08:36)
== END 2020-09-20 11:06 | disposition home health service (06) | DRG 329 ==
LOC: ED 13:04 → ICU 17:45 → MEDSUR 09-12 16:47
PROVIDERS: ADMIT Internal Medicine; ATTEND Internal Medicine

== ENCOUNTER 2020-11-23 04:53 | Inpatient (IN) ==
[2020-11-16 12:09] LABS: Basophils # (Auto) 0.07 K/mcL (0.00-0.20); Eosinophils # (Auto) 0.03 K/mcL (0.00-0.70); Eosinophils % (Auto) 0.4 % (0.0-7.0); Hematocrit 41.6 % (41.0-55.0); Hemoglobin 13.3 g/dL (13.5-16.5); Lymphocytes # (Auto) 1.39 K/mcL (1.50-4.80); Lymphocytes % (Auto) 19.9 % (15.0-49.0); Mean Cell Volume 86.7 fL (80.0-100.0); Mean Platelet Volume 9.9 fL (7.4-10.4); Monocytes # (Auto) 0.59 K/mcL (0.10-0.90); Monocytes % (Auto) 8.5 % (1.0-12.0); Neutrophils % (Auto) 70.2 % (38.0-78.0); Platelet Count 330 K/mcL (140-440); Red Cell Distribution Width 12.7 % (11.5-14.5)
[2020-11-16 12:47] LABS: ALT/SGPT 20 U/L (<40); AST/SGOT 25 U/L (<40); Albumin 4.6 gm/dL (3.2-5.2); Albumin/Globulin Ratio 1.7 (1.0-2.3); Alkaline Phosphatase 84 U/L (39-117); Bilirubin,Total 1.2 mg/dL (0.1-1.0); Blood Urea Nitrogen 17 mg/dL (8-23); Calcium 9.8 mg/dL (8.6-10.4); Carbon Dioxide 28 mmol/L (22-30); Chloride 101 mmol/L (96-108); Globulin 2.7 gm/dL (2.2-3.7); Glomerular Filtration Rate 50; Glucose 93 mg/dL (70-105)
--- NOTE | 2020-11-16 15:38 | EKG ---
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 Measurements Intervals [place] Rate: 72 P: 63 W[place]: 180 QRS: -59 QRSD: 106 T: 20 QT: 408 QTc: 447 Interpretive Statements SINUS RHYTHM LEFT ANTERIOR FASCICULAR BLOCK Electronically Signed On 11-16-2020 13:08:18 PDT by Shaan Sutton M.D. /store/[email or web address]/[id number]
[2020-11-23] MEDS ORDERED: IPRATROPIUM/ALBUTEROL 3 ML AMPUL.NEB NEB PRN ×2 (05:00→08:47)
[2020-11-23] MEDS ORDERED: SCOPOLAMINE 1 PATCH PATCH TOPICAL PRN (05:00)
[2020-11-23] MEDS ORDERED: ceFAZolin 2 GM in DEXTROSE 5% IN WATER 50 ML IV SCH (06:00)
[2020-11-23] MEDS ORDERED: PHENYLEPHRINE 10 MG/ML VIAL ONE (07:38)
[2020-11-23] MEDS ORDERED: fentaNYL 100 MCG/2 ML VIAL IV ONE (07:38)
[2020-11-23] MEDS ORDERED: DEXAMETHASONE 10 MG/ML VIAL ONE (07:38)
[2020-11-23] MEDS ORDERED: SUGAMMADEX SODIUM 200 MG/2 ML VIAL IV ONE (07:38)
[2020-11-23] MEDS ORDERED: ONDANSETRON 4 MG/2 ML VIAL ONE (07:38)
[2020-11-23] MEDS ORDERED: ROCURONIUM 10 MG/ML ML IV ONE (07:38)
[2020-11-23] MEDS ORDERED: LIDOCAINE HCL/PF 100 MG/5 ML SYRINGE IV ONE (07:38)
[2020-11-23] MEDS ORDERED: GLYCOPYRROLATE 0.2 MG/ML VIAL IV ONE (07:38)
[2020-11-23] MEDS ORDERED: PROPOFOL 200 MG/20 ML VIAL IV ONE (07:38)
[2020-11-23] MEDS ORDERED: KETAMINE 50 MG/ML ML ONE (07:38)
[2020-11-23] MEDS ORDERED: MAGNESIUM SULFATE 2 GM/50 ML BAG IV ONE (07:38)
[2020-11-23] MEDS ORDERED: MIDAZOLAM 5 MG/5 ML VIAL ONE (07:38)
[2020-11-23] MEDS ORDERED: ONDANSETRON 4 MG/2 ML VIAL IV PRN (08:47)
[2020-11-23] MEDS ORDERED: KETOROLAC 15 MG/ML VIAL IV PRN (08:47)
[2020-11-23] MEDS ORDERED: BENZOCAINE/MENTHOL 1 LOZENGE PO PRN (08:47)
[2020-11-23] MEDS ORDERED: ePHEDrine 50 MG/ML AMPUL IV PRN (08:47)
[2020-11-23] MEDS ORDERED: LABETALOL 5 MG/ML ML IV PRN (08:47)
[2020-11-23] MEDS ORDERED: MEPERIDINE 25 MG/ML VIAL IV PRN (08:47)
[2020-11-23] MEDS ORDERED: MEPERIDINE 50 MG/ML VIAL IM PRN (08:47)
[2020-11-23] MEDS ORDERED: ACETAMINOPHEN 1,000 MG/100 ML BAG IV ONE (08:47)
[2020-11-23] MEDS ORDERED: PROMETHAZINE 25 MG/ML VIAL IM PRN (08:47)
[2020-11-23] MEDS ORDERED: LACTATED RINGERS 1,000 ML IV SCH (09:00)
[2020-11-23] MEDS ORDERED: IBUPROFEN 600 MG TABLET PO PRN (09:20)
--- NOTE | 2020-11-23 09:20 | Operative Note ---
Brief Operative Note Date of procedure: 11/23/20 Pre-op diagnosis: History of ostomy secondary to large bowel obstruction from diverticular st Post-op diagnosis: same Procedure: Exploratory laparotomy, ostomy reversal Grafts/Implants: No Anesthesia: GETA Findings: Normal anatomy Complications: none Surgeon: Glenroy Weber Estimated blood loss (cc): 25 Specimens Removed/Pathology: other (Anastomotic donuts, ostomy) Condition: stable Disposition: PACU Operative Note Operative Note: After risk benefits and alternatives to the procedure were discussed with the patient at length he verbalized understanding and desire to continue with the procedure. Patient was taken main operating place upon the operative table. General anesthesia was induced over endotracheal tube. Patient's prepped and draped in the standard sterile surgical fashion. Surgical timeout was taken to verify patient and procedure being performed. The ostomy site was prepped of the field of operation, prior midline incision was used carried down through skin and subtenons tissue. The abdominal cavity was entered under direct vision. Small amount of omental adhesions were id entified these were carefully dissected free from the midline with electrocautery dissection and then carefully dissected off the prior ostomy with sharp and electrocautery dissection. There was still irritable small loops of small bowel in the pelvis these were carefully taken down with sharp dissection to fully remove the bowel from the pelvis. The rectum was identified and dissected free from surrounding structures to allow it to mobilize into the low pelvis without difficulty. The ostomy was then carefully dissected free from the fascia in a circumferential fashion using blunt and electrocautery dissection. Once it was completely dissected free it was transected with Endo ROCHELLE stapler. The end of the descending colon was then opened and sized with a 29 EEA sizer without difficulty. EEA anvil was placed into the bowel which was closed with surgical stapler and then the end of the was brought out through the middle of the staple line. The descending colon dropped into the pelvis without any tension after several adhesions along the sidewall were taken down. Sizer was then used to dilate the rectum up to a 33 sizer and then a 29 EEA stapled anastomosis was performed without difficulty. The test was performed which showed no air bubbles and a widely patent anastomosis. The fluid was then suctioned free from the abdominal cavity. The colon was once again inspected and laid without tension on the anastomosis in the pelvis with good blood supply to the anastomosis. The bowel and omentum were returned to their anatomical positions in the midline fascial defect was closed with a running looped PDS suture. Skin was closed with a running 4-0 Monocryl. Attention was then turned to the ostomy which was cored out and passed off the field for surgical pathology. The fascia was closed with a 0 Prolene suture the skin was closed with a 0 Vicryl pursestring suture and the cavity was packed with Betadine soaked Kerlix gauze. 4 x 4 and a Tegaderm dressings were applied. Dermabond dressings were applied to the midline incision. Patient was then awakened from anesthesia transported postanesthesia care unit awake alert in good condition.
[2020-11-23] MEDS: fentaNYL 100 MCG/2 ML VIAL IV PRN ×4 (09:41→10:09)
[2020-11-23] MEDS: LACTATED RINGERS 1,000 ML IV SCH ×2 (10:34→18:01)
[2020-11-23] MEDS: HYDROmorphone 0.5 MG/0.5 ML SYRINGE IV PRN ×2 (10:39→12:51)
[2020-11-23] MEDS: oxyCODONE HCL 5 MG TABLET PO PRN ×2 (15:47→23:59)
[2020-11-23] MEDS: KETOROLAC 30 MG/ML VIAL IV SCH ×2 (18:03→23:58)
[2020-11-24] MEDS: LACTATED RINGERS 1,000 ML IV SCH ×3 (02:08→18:27)
[2020-11-24] MEDS: oxyCODONE HCL 5 MG TABLET PO PRN ×3 (04:08→22:22)
[2020-11-24] MEDS: KETOROLAC 30 MG/ML VIAL IV SCH ×4 (05:34→23:38)
[2020-11-24 07:16] LABS: Basophils # (Auto) 0.02 K/mcL (0.00-0.20); Basophils % (Auto) 0.1 % (0.0-2.0); Eosinophils # (Auto) 0 K/mcL (0.00-0.70); Eosinophils % (Auto) 0 % (0.0-7.0); Hematocrit 33.9 % (41.0-55.0); Hemoglobin 10.8 g/dL (13.5-16.5); Lymphocytes # (Auto) 0.89 K/mcL (1.50-4.80); Lymphocytes % (Auto) 6.2 % (15.0-49.0); Mean Cell Volume 88.5 fL (80.0-100.0); Mean Corpuscular HGB Conc 31.9 g/dL (31.0-36.0); Mean Platelet Volume 10.1 fL (7.4-10.4); Monocytes # (Auto) 1.18 K/mcL (0.10-0.90); Monocytes % (Auto) 8.2 % (1.0-12.0); Neutrophils % (Auto) 85.5 % (38.0-78.0); Platelet Count 271 K/mcL (140-440); RBC 3.83 M/mcL (4.50-5.90); Red Cell Distribution Width 12.8 % (11.5-14.5); WBC 14.4 K/mcL (4.5-11.0)
[2020-11-24 07:56] LABS: Blood Urea Nitrogen 19 mg/dL (8-23); Calcium 8.8 mg/dL (8.6-10.4); Carbon Dioxide 27 mmol/L (22-30); Chloride 102 mmol/L (96-108); Glomerular Filtration Rate 60; Glucose 89 mg/dL (70-105)
--- NOTE | 2020-11-24 08:36 | General Surgery Progress Note ---
SUBJECTIVE Subjective Patient information: Note initiated : 11/24/20 at 8:35 am Service Date, if different from initiated Date: [] Patient: Jean Judge 74 y/o M admitted on 11/23/20 for Exploratory Laparotomy, Ostomy Reversal. Chief Complaint: [] Interval history: Postop day #1 status post open ostomy reversal. Patient is feeling well, minimal abdominal discomfort, passed a little bit of flatus, urinating without difficulty and is ambulatory. Constitutional Vitals: Vital Signs Temp Pulse Resp BP Pulse Ox 99.0 F 67 14 154/77 96 11/24/20 04:04 11/24/20 04:04 11/24/20 04:04 11/24/20 04:04 11/24/20 04:04 Period Temp Pulse Resp BP Sys/Becerra Pulse Ox Last 24 Hr 97.0 F-99.0 F 62-94 14-29 125-173/66-87 94-100 Intake and Output 11/23/20 11/24/20 11/24/20 21:59 05:59 13:59 Intake Total 1421 1250 Output Total 1600 150 120 Balance -179 1100 -120 Weight 171 lb 4.8 oz Intake & Output: Intake & Output 11/23/20 11/24/20 11/24/20 21:59 05:59 13:59 Intake Total 1421 1250 Output Total 1600 150 120 Balance -179 1100 -120 Weight 171 lb 4.8 oz Intake: IV 931 1000 Lactated Ringers 1,000 ml @ 685 894 6283 mls/hr IV .Q8H [facility] Rx#: [id number] Oral 490 250 Output: Urine Catheter Amount 1600 Straight 1050 Void Amount 150 120 Other: Meal Dinner Percent of Meal Consumed 100% Urine Appearance Clear Straight Clear Urine Color Pale Dark Yellow Straight Dark Yellow Urine Odor Straight Normal General appearance: cooperative and no acute distress GI/Abdominal GI/Abdominal exam: Present soft and tenderness (Appropriately tender to palpation); Absent distended Additional comments: Incisions are clean dry and intact A/P Narrative A/P Narrative: Postop visit #1 status post ostomy reversal. Patient is doing as expected, continue with ambulation, will advance diet and await full return of bowel function. Time Spent With Patient Time: Total time spent is greater than 50% in coordination of care (as document ed) at patient's floor/unit and/or counseling patient:
[2020-11-24] MEDS: ONDANSETRON 4 MG/2 ML VIAL IV PRN (23:03)
[2020-11-25] MEDS: LACTATED RINGERS 1,000 ML IV SCH (02:28)
[2020-11-25] MEDS: oxyCODONE HCL 5 MG TABLET PO PRN ×2 (02:29→19:02)
[2020-11-25] MEDS: ACETAMINOPHEN 325 MG TABLET PO PRN ×2 (03:43→23:49)
[2020-11-25] MEDS: KETOROLAC 30 MG/ML VIAL IV SCH ×4 (05:00→23:49)
[2020-11-25] MEDS: ONDANSETRON 4 MG/2 ML VIAL IV PRN ×2 (05:00→19:15)
--- NOTE | 2020-11-25 08:07 | General Surgery Progress Note ---
SUBJECTIVE Subjective Patient information: Note initiated : 11/25/20 at 8:06 am Service Date, if different from initiated Date: [] Patient: Jean Judge 74 y/o M admitted on 11/23/20 for Exploratory Laparotomy, Ostomy Reversal. Chief Complaint: [] Interval history: Postop day #2 status post open ostomy reversal. Patient liquidy bowel movement last night, feels slightly distended but is passing gas. Patient has been ambulatory and has no complaints this morning. Constitutional Vitals: Vital Signs Temp Pulse Resp BP Pulse Ox 99.0 F 91 H 20 178/81 93 11/25/20 06:58 11/25/20 06:58 11/25/20 06:58 11/25/20 06:58 11/25/20 06:58 Period Temp Pulse Resp BP Sys/Becerra Pulse Ox Last 24 Hr 97.5 F-99.7 F 20-99 20-20 150-178/67-85 93-97 Intake and Output 11/24/20 11/25/20 11/25/20 21:59 05:59 13:59 Intake Total 1000 1540 Output Total 300 600 Balance 700 940 Weight 178 lb 3 oz Intake & Output: Intake & Output 11/24/20 11/25/20 11/25/20 21:59 05:59 13:59 Intake Total 1000 1540 Output Total 300 600 Balance 700 940 Weight 178 lb 3 oz Intake: IV 1000 1000 Lactated Ringers 1,000 ml @ 125 1000 1000 mls/hr IV .Q8H [facility] Rx#: [id number] Oral 540 Output: Void Amount 300 575 Emesis 25 Other: Urine Appearance Clear Clear Urine Color Bright Yellow Bright Yellow Urine Odor Strong General appearance: cooperative and no acute distress GI/Abdominal GI/Abdominal exam: Present normal bowel sounds and soft; Absent distended and tenderness Additional comments: Incision is clean dry and intact. Ostomy site packing removed, covered with 4 x 4. A/P Narrative A/P Narrative: Postop day #2 status post ostomy reversal. Patient had return of bowel function, will Hep-Lock IV fluids, restart all outpatient medications. Anticipate discharge tomorrow. Time Spent With Patient Time: Total time spent is greater than 50% in coordination of care (as documented) at patient's floor/unit and/or counseling patient:
[2020-11-25] MEDS: amLODIPine 5 MG TABLET PO SCH (08:35)
[2020-11-25] MEDS: LOSARTAN 50 MG TABLET PO SCH (08:35)
--- NOTE | 2020-11-25 13:31 | Surgical Pathology Report ---
Histology Microscopic Diagnosis Specimen A- COLON, ANASTOMOTIC DONUTS, EXCISION: --- COLONIC MUCOSA WITH NO DIAGNOSTIC ALTERATIONS. Gross Description Received in formalin designated as anastomotic donuts, are two donut shaped fragments of huizar bowel mucosa, measuring 1.7 x 0.7 cm and 1.8 cm x 0.8 cm. [employer] sections submitted: A1 - first donut; A2 - second donut. Microscopic Diagnosis Specimen B- COLON, OSTOMY, EXCISION: --- COLONIC MUCOSA WITH MILD FIBROSIS AND REMOTE HEMORRHAGE. --- VIABLE MARGINS. --- NO MALIGNANCY IDENTIFIED. (RLF) Gross Description Received in formalin labeled designated as ostomy, is a portion of colon received with one margin stapled and one margin opened. It measures 4.2 cm in length, 2.4 cm in diameter, and the wall is 0.3 cm thick. The mucosal surface is huizar and plicated. No gross lesions are identified The stapled margin is inked black. There are no candidate lymph nodes identified. [employer] sections are submitted in two cassettes: B1 - margins; B2 - random sections. (SCB:[email or web address]) Electronically Signed Natalee Rubalcava MD, FCAP Electronically Signed 11/25/2020 13:30
[2020-11-25] MEDS: ATORVASTATIN 10 MG TABLET PO SCH (22:08)
[2020-11-26] MEDS: ONDANSETRON 4 MG/2 ML VIAL IV PRN ×2 (03:42→19:27)
[2020-11-26] MEDS: KETOROLAC 30 MG/ML VIAL IV SCH ×4 (05:23→23:44)
[2020-11-26 06:54] LABS: Basophils # (Auto) 0.04 K/mcL (0.00-0.20); Basophils % (Auto) 0.3 % (0.0-2.0); Eosinophils # (Auto) 0 K/mcL (0.00-0.70); Eosinophils % (Auto) 0 % (0.0-7.0); Hematocrit 35.6 % (41.0-55.0); Hemoglobin 11.5 g/dL (13.5-16.5); Lymphocytes # (Auto) 0.24 K/mcL (1.50-4.80); Lymphocytes % (Auto) 1.9 % (15.0-49.0); Mean Cell Volume 86.8 fL (80.0-100.0); Mean Corpuscular HGB Conc 32.3 g/dL (31.0-36.0); Mean Platelet Volume 10.1 fL (7.4-10.4); Monocytes # (Auto) 0.53 K/mcL (0.10-0.90); Monocytes % (Auto) 4.2 % (1.0-12.0); Neutrophils % (Auto) 93.6 % (38.0-78.0); Platelet Count 239 K/mcL (140-440); Red Cell Distribution Width 13.1 % (11.5-14.5); WBC 12.7 K/mcL (4.5-11.0)
--- NOTE | 2020-11-26 08:05 | General Surgery Progress Note ---
SUBJECTIVE Subjective Patient information: Note initiated : 11/26/20 at 8:03 am Service Date, if different from initiated Date: [] Patient: Jean Judge 74 y/o M admitted on 11/23/20 for Exploratory Laparotomy, Ostomy Reversal. Chief Complaint: [] Interval history: Postop day #3 status post ostomy reversal. Patient continues to have bowel movements overnight, there is blood in his bowel movements. He is ambulatory, tolerating p.o. intake. He feels more worn down although more abdominal pain today. Constitutional Vitals: Vital Signs Temp Pulse Resp BP Pulse Ox 97.7 F 80 16 124/75 95 11/26/20 07:43 11/26/20 07:43 11/26/20 07:43 11/26/20 07:43 11/26/20 07:43 Period Temp Pulse Resp BP Sys/Becerra Pulse Ox Last 24 Hr 97.7 F-101.2 F 80-99 16-20 118-158/64-89 92-95 Intake and Output 11/25/20 11/26/20 11/26/20 21:59 05:59 13:59 Intake Total 300 200 Output Total 650 100 Balance -350 100 Weight 173 lb 3 oz Intake & Output: Intake & Output 11/25/20 11/26/20 11/26/20 21:59 05:59 13:59 Intake Total 300 200 Output Total 650 100 Balance -350 100 Weight 173 lb 3 oz Intake: Oral 300 200 Output: Void Amount 650 100 Other: Urine Appearance Clear Clear Urine Color Bright Yellow Bright Yellow Urine Odor Normal Stool Size Small Stool Color Brown Stool Consistency Liquid # Voids 1 # Bowel Movements 1 General appearance: cooperative and no acute distress GI/Abdominal GI/Abdominal exam: Present soft; Absent distended and tenderness A/P Narrative A/P Narrative: Postop day #3 status post ostomy reversal, still feels some abdominal pain and weakness today. Does not feel like he is ready to be independent at home. White blood cell count decreased this morning, patient is progressing as expected. Expect discharge in the next 24 to 48 hours. Time Spent With Patient Time: Total time spent is greater than 50% in coordination of care (as documented) at patient's floor/unit and/or counseling patient:
[2020-11-26] MEDS: LOSARTAN 50 MG TABLET PO SCH (08:23)
[2020-11-26] MEDS: amLODIPine 5 MG TABLET PO SCH (08:23)
[2020-11-26 08:39] LABS: Blood Urea Nitrogen 22 mg/dL (8-23); Calcium 8.6 mg/dL (8.6-10.4); Carbon Dioxide 25 mmol/L (22-30); Chloride 99 mmol/L (96-108); Glomerular Filtration Rate 60; Glucose 113 mg/dL (70-105)
[2020-11-26] MEDS: oxyCODONE HCL 5 MG TABLET PO PRN (18:49)
[2020-11-26] MEDS: ATORVASTATIN 10 MG TABLET PO SCH (20:32)
[2020-11-26] MEDS: HYDROmorphone 0.5 MG/0.5 ML SYRINGE IV PRN (20:32)
[2020-11-27] MEDS: oxyCODONE HCL 5 MG TABLET PO PRN ×2 (01:31→15:53)
[2020-11-27] MEDS: HYDROmorphone 0.5 MG/0.5 ML SYRINGE IV PRN (02:55)
[2020-11-27 06:43] LABS: Basophils # (Auto) 0.04 K/mcL (0.00-0.20); Basophils % (Auto) 0.4 % (0.0-2.0); Eosinophils # (Auto) 0 K/mcL (0.00-0.70); Eosinophils % (Auto) 0 % (0.0-7.0); Hematocrit 34.7 % (41.0-55.0); Hemoglobin 11.4 g/dL (13.5-16.5); Lymphocytes # (Auto) 0.35 K/mcL (1.50-4.80); Lymphocytes % (Auto) 3.4 % (15.0-49.0); Mean Cell Volume 86.8 fL (80.0-100.0); Mean Corpuscular HGB Conc 32.9 g/dL (31.0-36.0); Mean Platelet Volume 10.6 fL (7.4-10.4); Monocytes # (Auto) 0.91 K/mcL (0.10-0.90); Platelet Count 246 K/mcL (140-440); Red Cell Distribution Width 12.8 % (11.5-14.5); WBC 10.2 K/mcL (4.5-11.0)
[2020-11-27 07:33] LABS: Blood Urea Nitrogen 36 mg/dL (8-23); Calcium 8.5 mg/dL (8.6-10.4); Carbon Dioxide 25 mmol/L (22-30); Chloride 99 mmol/L (96-108); Glomerular Filtration Rate 54; Glucose 110 mg/dL (70-105)
[2020-11-27] MEDS: KETOROLAC 30 MG/ML VIAL IV SCH ×4 (07:42→23:31)
[2020-11-27] MEDS: ONDANSETRON 4 MG/2 ML VIAL IV PRN ×2 (07:42→19:02)
[2020-11-27] MEDS: LOSARTAN 50 MG TABLET PO SCH (08:20)
[2020-11-27] MEDS: amLODIPine 5 MG TABLET PO SCH (08:20)
--- NOTE | 2020-11-27 09:02 | General Surgery Progress Note ---
SUBJECTIVE Subjective Patient information: Note initiated : 11/27/20 at 9:00 am Service Date, if different from initiated Date: [] Patient: Jean Judge 74 y/o M admitted on 11/23/20 for Exploratory Laparotomy, Ostomy Reversal. Chief Complaint: [] Interval history: Postop day #4 status post open ostomy reversal. Patient is ambulatory, tolerating regular diet. He is having loose bowel movements with less blood than normal today. Patient without good support at home, desires to stay 1 more day to make sure he is fully ambulatory. Constitutional Vitals: Vital Signs Temp Pulse Resp BP Pulse Ox 97.4 F 87 20 146/85 93 11/27/20 07:56 11/27/20 07:56 11/27/20 07:56 11/27/20 07:56 11/27/20 07:56 Period Temp Pulse Resp BP Sys/Becerra Pulse Ox Last 24 Hr 97.4 F-98.7 F 78-95 16-26 130-149/79-85 93-97 Intake and Output 11/26/20 11/27/20 11/27/20 21:59 05:59 13:59 Intake Total 550 125 120 Output Total 250 75 Balance 300 50 120 Weight 172 lb 11.2 oz Intake & Output: Intake & Output 11/26/20 11/27/20 11/27/20 21:59 05:59 13:59 Intake Total 550 125 120 Output Total 250 75 Balance 300 50 120 Weight 172 lb 11.2 oz Intake: Oral 550 125 120 Output: Void Amount 250 75 Other: Meal Breakfast Percent of Meal Consumed 100% Feeding Ability Independent Urine Appearance Clear Clear Urine Color Light Barb Light Barb Stool Size Moderate Stool Color Brown Stool Consistency Watery # Voids 1 # Bowel Movements 1 # of times incontinent of 1 Bowels General appearance: cooperative and no acute distress GI/Abdominal GI/Abdominal exam: Present soft and tenderness (Appropriately tender to palpation, not peritoneal); Absent distended Additional comments: Incision is clean dry and intact, ostomy site is dressed A/P Narrative A/P Narrative: Postop day #4 status post open ostomy reversal. Patient is ambulatory, tolerating regular diet. We will keep 1 more day to make sure patient is independent for discharge. We will schedule for home health to assist with ostomy site dressing changes. Time Spent With Patient Time: Total time spent is greater than 50% in coordination of care (as documented) at patient's floor/unit and/or counseling patient:
[2020-11-27 09:23] LABS: Neutrophils % (Auto) 87.2 % (38.0-78.0)
[2020-11-27] MEDS: ATORVASTATIN 10 MG TABLET PO SCH (20:26)
[2020-11-27] MEDS: ACETAMINOPHEN 325 MG TABLET PO PRN (23:30)
[2020-11-28] MEDS: oxyCODONE HCL 5 MG TABLET PO PRN (01:58)
[2020-11-28] MEDS: HYDROmorphone 0.5 MG/0.5 ML SYRINGE IV PRN (02:45)
[2020-11-28] MEDS: KETOROLAC 30 MG/ML VIAL IV SCH ×2 (05:22→11:35)
[2020-11-28] MEDS: amLODIPine 5 MG TABLET PO SCH (09:10)
[2020-11-28] MEDS: LOSARTAN 50 MG TABLET PO SCH (09:10)
[2020-11-28] MEDS: ONDANSETRON 4 MG/2 ML VIAL IV PRN (11:35)
--- NOTE | 2020-11-28 12:55 | General Surgery Progress Note ---
SUBJECTIVE Subjective Patient information: Note initiated : 11/28/20 at 12:49 pm Service Date, if different from initiated Date: [] Patient: Jean Judge 74 y/o M admitted on 11/23/20 for Exploratory Laparotomy, Ostomy Reversal. Chief Complaint: [] Principal diagnosis: Status post colostomy closure Interval history: Patient complains of constant nausea and states that he has had vomiting but nursing staff cannot verify this. He has had diarrheal stools. He states that he feels weak. He also states that he has had bloody stools but this has not been verified. His BUN has increased from 19-36.1 over the past 2days. Constitutional Vitals: Vital Signs Temp Pulse Resp BP Pulse Ox 97.2 F 90 18 109/62 97 11/28/20 12:00 11/28/20 12:00 11/28/20 12:00 11/28/20 12:00 11/28/20 12:00 Period Temp Pulse Resp BP Sys/Becerra Pulse Ox Last 24 Hr 97.2 F-100.5 F 79-95 16-18 106-144/60-80 92-97 Intake and Output 11/27/20 11/28/20 11/28/20 21:59 05:59 13:59 Intake Total 450 Output Total 3 Balance -3 450 Weight 172 lb 9.6 oz 172 lb 9.6 oz Intake & Output: Intake & Output 11/27/20 11/28/20 11/28/20 21:59 05:59 13:59 Intake Total 450 Output Total 3 Balance -3 450 Weight 172 lb 9.6 oz 172 lb 9.6 oz Intake: Oral 450 Output: # of times incontinent of urine 3 Other: Meal Breakfast Percent of Meal Consumed 100% Feeding Ability Independent Nourishment/Supplement name icecream Stool Size Copious Moderate Large Stool Color Brown Brown Brown Stool Consistency Soft Loose Liquid Liquid Watery Loose # Voids 2 1 1 # Bowel Movements 1 1 # of times incontinent of 1 Bowels Head Head exam: Present atraumatic, normal inspection and normocephalic Eye Eye exam: Present EOMI Pupils: Present PERRL ENT ENT exam: Present mucous membranes moist and normal exam Neck Neck exam: Present full ROM and normal inspection; Absent tenderness Respiratory Respiratory exam: Present normal respiratory exam and CTAB; Absent rales, rhonchi and wheezes Cardiovascular Cardiovascular exam: Present normal rate and rhythm, RRR, +S1 and +S2; Absent JVD GI/Abdominal GI/Abdominal exam: Present normal bowel sounds, soft and tenderness; Absent guarding Extremities Exam Extremities exam: Present full ROM and neurovascular intact Neurological Exam Neurological exam: Present normal gait and oriented X3 Psychiatric Psychiatric exam: Present normal affect and normal mood Skin Skin exam: Present normal color; Absent pallor A/P Assessment and plan (1) Diarrhea in adult patient: Status: Acute (2) Acute kidney failure, unspecified: Status: Acute (3) S/P colostomy takedown: Status: Acute Narrative A/P Narrative: Switch to oral full liquids Hydration with normal saline Follow-up CBC and inpatient panel in the morning Delay discharge Time Spent With Patient Time: Total time spent is greater than 50% in coordination of care (as documented) at patient's floor/unit and/or counseling patient:
[2020-11-28] MEDS: 0.9 % SODIUM CHLORIDE 1,000 ML IV SCH (14:19)
[2020-11-28 15:02] LABS: Basophils % (Auto) 0.5 % (0.0-2.0); Eosinophils # (Auto) 0.01 K/mcL (0.00-0.70); Eosinophils % (Auto) 0.1 % (0.0-7.0); Hematocrit 37.2 % (41.0-55.0); Hemoglobin 11.8 g/dL (13.5-16.5); Lymphocytes # (Auto) 0.52 K/mcL (1.50-4.80); Lymphocytes % (Auto) 2.8 % (15.0-49.0); Mean Cell Volume 87.3 fL (80.0-100.0); Mean Corpuscular HGB Conc 31.7 g/dL (31.0-36.0); Mean Platelet Volume 10.9 fL (7.4-10.4); Monocytes # (Auto) 1.62 K/mcL (0.10-0.90); Monocytes % (Auto) 8.9 % (1.0-12.0); Neutrophils % (Auto) 87.7 % (38.0-78.0); Platelet Count 327 K/mcL (140-440); RBC 4.26 M/mcL (4.50-5.90); WBC 18.3 K/mcL (4.5-11.0)
[2020-11-28 15:10] LABS: ALT/SGPT 11 U/L (<40); AST/SGOT 18 U/L (<40); Albumin 3.1 gm/dL (3.2-5.2); Albumin/Globulin Ratio 1.1 (1.0-2.3); Alkaline Phosphatase 66 U/L (39-117); Bilirubin,Direct 0.3 mg/dL (<0.3); Bilirubin,Total 0.9 mg/dL (0.1-1.0); Blood Urea Nitrogen 35 mg/dL (8-23); Calcium 8.7 mg/dL (8.6-10.4); Carbon Dioxide 28 mmol/L (22-30); Chloride 95 mmol/L (96-108); Globulin 2.7 gm/dL (2.2-3.7); Glomerular Filtration Rate 46; Glucose 135 mg/dL (70-105); Lactate Dehydrogenase 190 U/L (135-225); Phosphorous 2.3 mg/dL (2.5-4.5); Triglycerides 126 mg/dL (<150)
[2020-11-28] MEDS: ACETAMINOPHEN 325 MG TABLET PO PRN (17:17)
[2020-11-28] MEDS: diphenhydrAMINE 25 MG CAPSULE PO SCH (20:24)
[2020-11-28] MEDS: DICYCLOMINE 20 MG TABLET PO SCH (20:25)
[2020-11-28] MEDS: ATORVASTATIN 10 MG TABLET PO SCH (20:25)
[2020-11-29] MEDS: 0.9 % SODIUM CHLORIDE 1,000 ML IV SCH ×3 (00:37→22:08)
[2020-11-29] MEDS: oxyCODONE HCL 5 MG TABLET PO PRN (00:46)
[2020-11-29] MEDS: ONDANSETRON 4 MG/2 ML VIAL IV PRN (06:53)
[2020-11-29] MEDS: ACETAMINOPHEN 325 MG TABLET PO PRN ×2 (07:20→19:36)
[2020-11-29 07:56] LABS: Basophils # (Auto) 0.09 K/mcL (0.00-0.20); Basophils % (Auto) 0.7 % (0.0-2.0); Eosinophils # (Auto) 0.03 K/mcL (0.00-0.70); Eosinophils % (Auto) 0.2 % (0.0-7.0); Hematocrit 30.6 % (41.0-55.0); Hemoglobin 9.9 g/dL (13.5-16.5); Lymphocytes # (Auto) 0.59 K/mcL (1.50-4.80); Lymphocytes % (Auto) 4.6 % (15.0-49.0); Mean Cell Volume 86.9 fL (80.0-100.0); Mean Corpuscular HGB Conc 32.4 g/dL (31.0-36.0); Mean Platelet Volume 10.7 fL (7.4-10.4); Monocytes # (Auto) 1.64 K/mcL (0.10-0.90); Monocytes % (Auto) 12.8 % (1.0-12.0); Neutrophils % (Auto) 81.7 % (38.0-78.0); Platelet Count 275 K/mcL (140-440); RBC 3.52 M/mcL (4.50-5.90); Red Cell Distribution Width 13.1 % (11.5-14.5); WBC 12.8 K/mcL (4.5-11.0)
[2020-11-29] MEDS: amLODIPine 5 MG TABLET PO SCH (07:58)
[2020-11-29] MEDS: LOSARTAN 50 MG TABLET PO SCH (07:58)
[2020-11-29] MEDS: DICYCLOMINE 20 MG TABLET PO SCH ×3 (07:58→21:21)
[2020-11-29 08:15] LABS: ALT/SGPT 10 U/L (<40); AST/SGOT 16 U/L (<40); Albumin 2.4 gm/dL (3.2-5.2); Alkaline Phosphatase 61 U/L (39-117); Bilirubin,Direct 0.2 mg/dL (<0.3); Bilirubin,Total 0.6 mg/dL (0.1-1.0); Blood Urea Nitrogen 29 mg/dL (8-23); Calcium 8.2 mg/dL (8.6-10.4); Carbon Dioxide 26 mmol/L (22-30); Chloride 101 mmol/L (96-108); Globulin 2.4 gm/dL (2.2-3.7); Glomerular Filtration Rate 54; Glucose 102 mg/dL (70-105); Lactate Dehydrogenase 159 U/L (135-225); Phosphorous 2.1 mg/dL (2.5-4.5); Triglycerides 98 mg/dL (<150); Uric Acid 4.9 mg/dL (2.5-8.0)
[2020-11-29] MEDS: 0.9 % SODIUM CHLORIDE 10 ML SYRINGE IV SCH ×2 (12:08→22:08)
--- NOTE | 2020-11-29 13:38 | General Surgery Progress Note ---
SUBJECTIVE Subjective Patient information: Note initiated : 11/29/20 at 1:33 pm Service Date, if different from initiated Date: [] Patient: Jean Judge 74 y/o M admitted on 11/23/20 for Exploratory Laparotomy, Ostomy Reversal. Chief Complaint: [] Principal diagnosis: Status post colostomy closure Interval history: Patient states that he feels better but he does not appear to be very motivated. He still complains of anorexia except for liquids. The frequency and volume of bowel movements are decreasing. He remains afebrile. White blood count 12.8, hemoglobin 9.9, hematocrit 30.6, potassium 3.0, BUN 29, creatinine 1.3 his abdominal pain is controlled. Constitutional Vitals: Vital Signs Temp Pulse Resp BP Pulse Ox 98.4 F 73 16 133/72 95 11/29/20 11:43 11/29/20 11:43 11/29/20 11:43 11/29/20 11:43 11/29/20 11:43 Period Temp Pulse Resp BP Sys/Becerra Pulse Ox Last 24 Hr 98.2 F-98.8 F 70-82 16-20 105-133/61-72 91-95 Intake and Output 11/28/20 11/29/20 11/29/20 21:59 05:59 13:59 Intake Total 240 1300 988 Output Total 1 Balance 239 1300 988 Weight 171 lb 3.2 oz Intake & Output: Intake & Output 11/28/20 11/29/20 11/29/20 21:59 05:59 13:59 Intake Total 240 1300 988 Output Total 1 Balance 239 1300 988 Weight 171 lb 3.2 oz Intake: IV 1000 988 Sodium Chloride 0.9% 1,000 ml @ 1000 988 100 mls/hr IV .Q10H [facility] Rx#: [id number] Oral 240 300 Output: # of times incontinent of urine 1 Other: Meal Nourishment/Supplement Percent of Meal Consumed 100% Urine Appearance Clear Urine Color Bright Yellow Stool Size Small Moderate Smear Stool Color Brown Brown Brown Stool Consistency Loose Loose Liquid # Voids 1 1 1 # Bowel Movements 1 1 1 # of times incontinent of 1 1 Bowels Neck Neck exam: Present full ROM and normal inspection; Absent tenderness Respiratory Respiratory exam: Present normal respiratory exam and CTAB; Absent rales, rhonchi and wheezes Cardiovascular Cardiovascular exam: Present normal rate and rhythm, RRR, +S1 and +S2; Absent JVD GI/Abdominal GI/Abdominal exam: Present normal bowel sounds, soft and tenderness; Absent guarding Extremities Exam Extremities exam: Present full ROM and neurovascular intact Neurological Exam Neurological exam: Present normal gait and oriented X3 Psychiatric Psychiatric exam: Present normal affect and normal mood Skin Skin exam: Present normal color; Absent pallor A/P Assessment and plan (1) Diarrhea in adult patient: Status: Acute (2) Acute kidney failure, unspecified: Status: Acute (3) S/P colostomy takedown: Status: Acute Narrative A/P Narrative: White blood count is decreased. He remains afebrile. BUN and creatinine are improved. Will replace potassium phosphate We will send stool for C. difficile Patient refuses to have advancement of his diet Time Spent With Patient Time: Total time spent is greater than 50% in coordination of care (as documented) at patient's floor/unit and/or counseling patient:
[2020-11-29] MEDS: POTASSIUM PHOSPHATE 40 MEQ in DEXTROSE 5% IN WATER 500 ML IV SCH ×2 (15:28→20:32)
[2020-11-29] MEDS: diphenhydrAMINE 25 MG CAPSULE PO SCH (21:22)
[2020-11-29] MEDS: ATORVASTATIN 10 MG TABLET PO SCH (21:22)
[2020-11-30] MEDS: 0.9 % SODIUM CHLORIDE 10 ML SYRINGE IV SCH ×3 (05:54→20:20)
[2020-11-30] MEDS: 0.9 % SODIUM CHLORIDE 1,000 ML IV SCH ×2 (06:02→15:11)
[2020-11-30] MEDS: LOSARTAN 50 MG TABLET PO SCH (08:26)
[2020-11-30] MEDS: DICYCLOMINE 20 MG TABLET PO SCH ×3 (08:26→20:19)
[2020-11-30] MEDS: amLODIPine 5 MG TABLET PO SCH (08:26)
[2020-11-30 10:07] LABS: Basophils # (Auto) 0.05 K/mcL (0.00-0.20); Basophils % (Auto) 0.5 % (0.0-2.0); Eosinophils # (Auto) 0.04 K/mcL (0.00-0.70); Eosinophils % (Auto) 0.4 % (0.0-7.0); Hematocrit 36.3 % (41.0-55.0); Hemoglobin 11.4 g/dL (13.5-16.5); Lymphocytes # (Auto) 2.38 K/mcL (1.50-4.80); Lymphocytes % (Auto) 21.8 % (15.0-49.0); Mean Cell Volume 86.2 fL (80.0-100.0); Mean Corpuscular HGB Conc 31.4 g/dL (31.0-36.0); Mean Platelet Volume 9.7 fL (7.4-10.4); Monocytes # (Auto) 0.84 K/mcL (0.10-0.90); Monocytes % (Auto) 7.7 % (1.0-12.0); Neutrophils % (Auto) 69.6 % (38.0-78.0); Platelet Count 388 K/mcL (140-440); RBC 4.21 M/mcL (4.50-5.90); Red Cell Distribution Width 13.4 % (11.5-14.5); WBC 10.9 K/mcL (4.5-11.0)
[2020-11-30 10:17] LABS: ALT/SGPT 11 U/L (<40); AST/SGOT 20 U/L (<40); Albumin 2.3 gm/dL (3.2-5.2); Albumin/Globulin Ratio 0.9 (1.0-2.3); Alkaline Phosphatase 60 U/L (39-117); Bilirubin,Direct < 0.2 mg/dL (0-0.3); Bilirubin,Total 0.6 mg/dL (0.1-1.0); Blood Urea Nitrogen 14 mg/dL (8-23); Carbon Dioxide 24 mmol/L (22-30); Chloride 99 mmol/L (96-108); Globulin 2.7 gm/dL (2.2-3.7); Glomerular Filtration Rate 74; Glucose 99 mg/dL (70-105); Lactate Dehydrogenase 173 U/L (135-225); Phosphorous 2.8 mg/dL (2.5-4.5); Triglycerides 119 mg/dL (<150); Uric Acid 3.6 mg/dL (2.5-8.0)
--- NOTE | 2020-11-30 11:33 | General Surgery Progress Note ---
SUBJECTIVE Subjective Patient information: Note initiated : 11/30/20 at 11:31 am Service Date, if different from initiated Date: [] Patient: Jean Judge 74 y/o M admitted on 11/23/20 for Exploratory Laparotomy, Ostomy Reversal. Chief Complaint: [] Principal diagnosis: Status post colostomy closure Interval history: Patient still has complaint of some nausea, although he reports is much decreased over the last few days. Continues to have bowel movements, however no further liquid bowel movements. He has no fevers or chills Constitutional Vitals: Vital Signs Temp Pulse Resp BP Pulse Ox 98.6 F 82 16 140/77 92 11/30/20 08:00 11/30/20 08:00 11/30/20 08:00 11/30/20 08:00 11/30/20 08:00 Period Temp Pulse Resp BP Sys/Becerra Pulse Ox Last 24 Hr 98.2 F-98.7 F 72-82 14-24 133-149/66-77 92-96 Intake and Output 11/29/20 11/30/20 11/30/20 21:59 05:59 13:59 Intake Total 2389 859.0909 Output Total 600 100 Balance 2655 122.8662 Weight 170 lb 6.4 oz Intake & Output: Intake & Output 11/29/20 11/30/20 11/30/20 21:59 05:59 13:59 Intake Total 2389 859.0909 Output Total 600 100 Balance 8699 762.1986 Weight 170 lb 6.4 oz Intake: IV 4115 164.4563 Sodium Chloride 0.9% 1,000 ml @ 1000 100 mls/hr IV .Q10H [facility] Rx#: [id number] Potassium Phosphate 40 Meq In 838 061.1195 Dextrose 5% in Water 500 ml @ 127.273 mls/hr IV Q4H [facility] Rx#: [id number] Oral 880 350 Output: Void Amount 500 100 Stool 100 Other: Meal Dinner Percent of Meal Consumed 50% Feeding Ability Independent Urine Appearance Clear Clear Clear Urine Color Dark Yellow Bright Yellow Bright Yellow Urine Odor Strong Stool Size Small Small Small Stool Color Brown Brown Brown Stool Consistency Liquid Loose Liquid Loose # Voids 1 1 1 # Bowel Movements 1 1 # of times incontinent of 1 1 Bowels General appearance: cooperative and no acute distress GI/Abdominal GI/Abdominal exam: Present soft; Absent distended, guarding and tenderness Additional comments: Incision is clean dry and intact A/P Narrative A/P Narrative: Postop day #7 status post open ostomy reversal, patient had some nausea with diarrhea over the weekend, however he feels much improved now. We will advance diet as tolerated, once nausea review resolved will be able to be discharged. Time Spent With Patient Time: Total time spent is greater than 50% in coordination of care (as documented) at patient's floor/unit and/or counseling patient:
[2020-11-30] MEDS: ACETAMINOPHEN 325 MG TABLET PO PRN (12:37)
[2020-11-30] MEDS: diphenhydrAMINE 25 MG CAPSULE PO SCH (20:20)
[2020-11-30] MEDS: ATORVASTATIN 10 MG TABLET PO SCH (20:20)
[2020-11-30] MEDS: oxyCODONE HCL 5 MG TABLET PO PRN (20:26)
[2020-12-01] MEDS: 0.9 % SODIUM CHLORIDE 1,000 ML IV SCH ×3 (01:16→21:50)
[2020-12-01] MEDS: 0.9 % SODIUM CHLORIDE 10 ML SYRINGE IV SCH ×3 (06:01→20:24)
--- NOTE | 2020-12-01 08:34 | General Surgery Progress Note ---
SUBJECTIVE Subjective Patient information: Note initiated : 12/01/20 at 8:32 am Service Date, if different from initiated Date: [] Patient: Jean Judge 74 y/o M admitted on 11/23/20 for Exploratory Laparotomy, Ostomy Reversal. Chief Complaint: [] Principal diagnosis: Status post colostomy closure Interval history: Status post colostomy closure, patient feels better today. Still having watery diarrhea, however nausea has resolved. He has a decrease in appetite but feels little bit better. Constitutional Vitals: Vital Signs Temp Pulse Resp BP Pulse Ox 98.7 F 76 20 128/69 97 12/01/20 07:11 12/01/20 07:11 12/01/20 07:11 12/01/20 07:11 12/01/20 07:11 Period Temp Pulse Resp BP Sys/Becerra Pulse Ox Last 24 Hr 98.5 F-98.8 F 66-84 16-24 128-155/69-79 92-97 Intake and Output 11/30/20 12/01/20 12/01/20 21:59 05:59 13:59 Intake Total 1315 1000 Balance 1315 1000 Weight 172 lb 9.6 oz Intake & Output: Intake & Output 11/30/20 12/01/20 12/01/20 21:59 05:59 13:59 Intake Total 1315 1000 Balance 1315 1000 Weight 172 lb 9.6 oz Intake: IV 915 1000 Sodium Chloride 0.9% 1,000 ml @ 915 1000 100 mls/hr IV .Q10H [facility] Rx#: [id number] Oral 400 0 Other: Meal Dinner Percent of Meal Consumed 50% Feeding Ability Independent Stool Size Small Moderate Moderate Stool Color Black Green Brown Black Stool Consistency Liquid Liquid Watery Loose Loose Loose # Voids 1 1 # Bowel Movements 1 1 # of times incontinent of 1 1 Bowels General appearance: cooperative and no acute distress GI/Abdominal GI/Abdominal exam: Present soft; Absent distended, rebound and tenderness Additional comments: Incision is clean dry and intact A/P Narrative A/P Narrative: Patient feels better today, resolving ileus, decreased nausea. Awaiting full return of bowel function prior to discharge. Continue with ambulation and home medications. Time Spent With Patient Time: Total time spent is greater than 50% in coordination of care (as documented) at patient's floor/unit and/or counseling patient:
[2020-12-01] MEDS: amLODIPine 5 MG TABLET PO SCH (09:31)
[2020-12-01] MEDS: DICYCLOMINE 20 MG TABLET PO SCH ×3 (09:31→20:23)
[2020-12-01] MEDS: LOSARTAN 50 MG TABLET PO SCH (09:31)
[2020-12-01] MEDS: diphenhydrAMINE 25 MG CAPSULE PO SCH (20:23)
[2020-12-01] MEDS: ATORVASTATIN 10 MG TABLET PO SCH (20:23)
[2020-12-02] MEDS: oxyCODONE HCL 5 MG TABLET PO PRN ×2 (01:47→08:12)
[2020-12-02] MEDS: 0.9 % SODIUM CHLORIDE 10 ML SYRINGE IV SCH ×3 (05:05→20:24)
[2020-12-02] MEDS ORDERED: LOPERAMIDE 2 MG CAPSULE PO ONE ×3 (07:50→21:53)
--- NOTE | 2020-12-02 07:53 | General Surgery Progress Note ---
SUBJECTIVE Subjective Patient information: Note initiated : 12/02/20 at 7:51 am Service Date, if different from initiated Date: [] Patient: Jean Judge 74 y/o M admitted on 11/23/20 for Exploratory Laparotomy, Ostomy Reversal. Chief Complaint: [] Principal diagnosis: Status post colostomy closure Interval history: Patient feels better today, he is eating better, however he continues to have explosive diarrhea which he is having problems controlling. He is C. difficile antibody positive, however toxin negative which reports as a colonization not infection. Constitutional Vitals: Vital Signs Temp Pulse Resp BP Pulse Ox 97.8 F 89 20 132/73 96 12/02/20 04:50 12/02/20 04:50 12/02/20 04:50 12/02/20 04:50 12/02/20 04:50 Period Temp Pulse Resp BP Sys/Becerra Pulse Ox Last 24 Hr 97.5 F-99.7 F 73-89 16-22 132-150/67-75 93-96 Intake and Output 12/01/20 12/02/20 12/02/20 21:59 05:59 13:59 Intake Total 1369 220 Balance 1369 220 Weight 171 lb 4.8 oz Intake & Output: Intake & Output 12/01/20 12/02/20 12/02/20 21:59 05:59 13:59 Intake Total 1369 220 Balance 1369 220 Weight 171 lb 4.8 oz Intake: IV 829 Sodium Chloride 0.9% 1,000 ml @ 829 75 mls/hr IV .[id number] [facility] Rx#: [id number] Oral 540 220 Other: Meal Magic cup Percent of Meal Consumed 75% Feeding Ability Independent Stool Size Small Small Stool Color Brown Brown Black Stool Consistency Liquid Loose Loose # Voids 1 1 # Bowel Movements 1 1 # of times incontinent of 1 1 Bowels General appearance: cooperative and no acute distress GI/Abdominal GI/Abdominal exam: Present soft; Absent distended and tenderness Additional comments: Incision is clean dry and intact A/P Narrative A/P Narrative: Slowly improving, awaiting for GI tract to readjust status post ostomy reversal. We will give a dose of Imodium today to slow down diarrhea. Time Spent With Patient Time: Total time spent is greater than 50% in coordination of care (as docum ented) at patient's floor/unit and/or counseling patient:
[2020-12-02] MEDS: amLODIPine 5 MG TABLET PO SCH (08:05)
[2020-12-02] MEDS: LOSARTAN 50 MG TABLET PO SCH (08:05)
[2020-12-02] MEDS: DICYCLOMINE 20 MG TABLET PO SCH ×3 (08:05→20:23)
[2020-12-02 11:00] LABS: Blood Urea Nitrogen 10 mg/dL (8-23); Calcium 8.3 mg/dL (8.6-10.4); Carbon Dioxide 22 mmol/L (22-30); Chloride 97 mmol/L (96-108); Glomerular Filtration Rate 89; Glucose 120 mg/dL (70-105)
[2020-12-02] MEDS ORDERED: POTASSIUM CHLORIDE 20 MEQ TABLET PO ONE (11:20)
[2020-12-02] MEDS: 0.9 % SODIUM CHLORIDE 1,000 ML IV SCH (11:37)
[2020-12-02 17:06] LABS: Blood Urea Nitrogen 11 mg/dL (8-23); Calcium 8.3 mg/dL (8.6-10.4); Carbon Dioxide 25 mmol/L (22-30); Chloride 99 mmol/L (96-108); Glomerular Filtration Rate 84; Glucose 108 mg/dL (70-105)
--- NOTE | 2020-12-02 19:09 | General Surgery Progress Note ---
SUBJECTIVE Subjective Patient information: Note initiated : 12/02/20 at 7:07 pm Service Date, if different from initiated Date: [] Patient: Jean Judge 74 y/o M admitted on 11/23/20 for Exploratory Laparotomy, Ostomy Reversal. Chief Complaint: [] Principal diagnosis: Status post colostomy closure Interval history: Note clarification. k 2.5 today, given 40 meq oral, repeat K 3.2 with resolving diarrhea. Will monitor. C.diff lab back on 11/29, labs reviewed. He is c.diff antgen +, toxin-. This is evidence of asymptomatic carrier, NOT infection. Decision to not treat is based on STANDARD OF CARE, not provider preference as stated in nursing notes. Based on his asymptomatic carrier, contact precautions are indicated and were initiated on 11/29. Constitutional Vitals: Vital Signs Temp Pulse Resp BP Pulse Ox 98.6 F 87 20 139/69 97 12/02/20 18:41 12/02/20 18:41 12/02/20 18:41 12/02/20 18:41 12/02/20 18:41 Period Temp Pulse Resp BP Sys/Becerra Pulse Ox Last 24 Hr 97.5 F-99.7 F 71-89 16-20 125-143/67-75 93-97 Intake and Output 12/02/20 12/02/20 12/02/20 05:59 13:59 21:59 Intake Total 220 1240 480 Output Total 2 Balance 220 1240 478 Weight 173 lb 3.2 oz Patient Weight 12/03/20 05:59 Weight 173 lb 3.2 oz Intake & Output: Intake & Output 12/02/20 12/02/20 12/02/20 05:59 13:59 21:59 Intake Total 220 1240 480 Output Total 2 Balance 220 1240 478 Weight 173 lb 3.2 oz Intake: IV 1000 Sodium Chloride 0.9% 1,000 ml @ 1000 75 mls/hr IV .[id number] [facility] Rx#: [id number] Oral 220 240 480 Output: Stool 2 Other: Meal Magic cup Breakfast Percent of Meal Consumed 75% 25% Feeding Ability Independent Urine Appearance Clear Urine Color Pale Straw Urine Odor Normal Stool Size Small Moderate Stool Color Brown Brown Green Stool Consistency Loose Liquid Watery Loose # Voids 1 3 # Bowel Movements 1 # of times incontinent of 1 Bowels A/P Narrative A/P Narrative: Note clarification. k 2.5 today, given 40 meq oral, repeat K 3.2 with resolving diarrhea. Will monitor. C.diff lab back on 11/29, labs reviewed. He is c.diff antgen +, toxin-. This is evidence of asymptomatic carrier, NOT infection. Decision to not treat is based on STANDARD OF CARE, not provider preference as stated in nursing notes. Based on his asymptomatic carrier, contact precautions are indicated and were initiated on 11/29. Time Spent With Patient Time: Total time spent is greater than 50% in coordination of care (as documented) at patient's floor/unit and/or counseling patient:
[2020-12-02] MEDS: ATORVASTATIN 10 MG TABLET PO SCH (20:23)
[2020-12-02] MEDS: diphenhydrAMINE 25 MG CAPSULE PO SCH (20:23)
[2020-12-03] MEDS: 0.9 % SODIUM CHLORIDE 1,000 ML IV SCH ×2 (00:45→14:19)
[2020-12-03] MEDS: oxyCODONE HCL 5 MG TABLET PO PRN ×2 (01:58→19:56)
[2020-12-03] MEDS: 0.9 % SODIUM CHLORIDE 10 ML SYRINGE IV SCH ×3 (05:21→21:56)
[2020-12-03 08:08] LABS: INR 1.3 (0.9-1.1); Prothrombin Time 16.5 sec (11.9-14.5)
[2020-12-03] MEDS: amLODIPine 5 MG TABLET PO SCH (08:12)
[2020-12-03] MEDS: DICYCLOMINE 20 MG TABLET PO SCH ×3 (08:12→21:39)
[2020-12-03] MEDS: LOSARTAN 50 MG TABLET PO SCH (08:12)
[2020-12-03 08:13] LABS: Blood Urea Nitrogen 17 mg/dL (8-23); Calcium 7.7 mg/dL (8.6-10.4); Carbon Dioxide 24 mmol/L (22-30); Chloride 104 mmol/L (96-108); Glomerular Filtration Rate 84; Glucose 111 mg/dL (70-105)
[2020-12-03 08:44] LABS: Basophils # (Auto) 0.07 K/mcL (0.00-0.20); Basophils % (Auto) 0.3 % (0.0-2.0); Eosinophils # (Auto) 0.03 K/mcL (0.00-0.70); Eosinophils % (Auto) 0.1 % (0.0-7.0); Hematocrit 26.1 % (41.0-55.0); Hemoglobin 8.4 g/dL (13.5-16.5); Lymphocytes # (Auto) 1.06 K/mcL (1.50-4.80); Lymphocytes % (Auto) 4.4 % (15.0-49.0); Mean Cell Volume 85.9 fL (80.0-100.0); Mean Corpuscular HGB Conc 32.2 g/dL (31.0-36.0); Mean Platelet Volume 10.1 fL (7.4-10.4); Monocytes # (Auto) 1.51 K/mcL (0.10-0.90); Monocytes % (Auto) 6.2 % (1.0-12.0); Platelet Count 434 K/mcL (140-440); RBC 3.04 M/mcL (4.50-5.90); Red Cell Distribution Width 13.3 % (11.5-14.5); WBC 24.2 K/mcL (4.5-11.0)
[2020-12-03] MEDS: metroNIDAZOLE 500 MG TABLET PO SCH ×2 (14:23→21:39)
[2020-12-03] MEDS: ONDANSETRON 4 MG/2 ML VIAL IV PRN (19:57)
[2020-12-03] MEDS: diphenhydrAMINE 25 MG CAPSULE PO SCH (21:38)
[2020-12-03] MEDS: ATORVASTATIN 10 MG TABLET PO SCH (21:39)
[2020-12-04] MEDS: 0.9 % SODIUM CHLORIDE 1,000 ML IV SCH ×2 (04:03→16:26)
[2020-12-04] MEDS: metroNIDAZOLE 500 MG TABLET PO SCH ×3 (06:11→21:37)
[2020-12-04] MEDS: 0.9 % SODIUM CHLORIDE 10 ML SYRINGE IV SCH ×3 (08:59→21:38)
[2020-12-04] MEDS: amLODIPine 5 MG TABLET PO SCH (08:59)
[2020-12-04] MEDS: oxyCODONE HCL 5 MG TABLET PO PRN ×2 (08:59→21:38)
[2020-12-04] MEDS: LOSARTAN 50 MG TABLET PO SCH (08:59)
[2020-12-04] MEDS: DICYCLOMINE 20 MG TABLET PO SCH ×3 (08:59→21:37)
[2020-12-04] MEDS ORDERED: LOPERAMIDE 2 MG CAPSULE PO ONE (09:16)
--- NOTE | 2020-12-04 09:19 | General Surgery Progress Note ---
SUBJECTIVE Subjective Patient information: Note initiated : 12/04/20 at 9:16 am Service Date, if different from initiated Date: [] Patient: Jean Judge 74 y/o M admitted on 11/23/20 for Exploratory Laparotomy, Ostomy Reversal. Chief Complaint: [] Principal diagnosis: Status post colostomy closure Interval history: Patient continues to have loose bowel movements, started on p.o. Flagyl yesterday. Otherwise he has no fevers chills nausea or vomiting, he is tolerating a regular diet. Constitutional Vitals: Vital Signs Temp Pulse Resp BP Pulse Ox 97.2 F 83 14 134/63 92 12/04/20 07:09 12/04/20 07:09 12/04/20 07:09 12/04/20 07:09 12/04/20 07:09 Period Temp Pulse Resp BP Sys/Becerra Pulse Ox Last 24 Hr 97.2 F-98.6 F 78-88 14-20 117-142/61-80 92-98 Intake and Output 12/03/20 12/04/20 12/04/20 21:59 05:59 13:59 Intake Total 1100 1300 Balance 1100 1300 Weight 171 lb 7 oz Intake & Output: Intake & Output 12/03/20 12/04/20 12/04/20 21:59 05:59 13:59 Intake Total 1100 1300 Balance 1100 1300 Weight 171 lb 7 oz Intake: IV 1000 1000 Sodium Chloride 0.9% 1,000 ml @ 1000 1000 75 mls/hr IV .[id number] [facility] Rx#: [id number] Oral 100 300 Other: Meal Dinner Percent of Meal Consumed 50% Stool Size Moderate Moderate Large Stool Color Dark Red Blood Dark Red Blood Brown Dark Red Blood Stool Consistency Loose Loose Liquid Loose # Voids 1 1 # Bowel Movements 1 1 3 # of times incontinent of 8 1 2 Bowels General appearance: cooperative and no acute distress GI/Abdominal GI/Abdominal exam: Present soft; Absent distended and tenderness A/P Narrative A/P Narrative: Continues with loose bowel movements, will change Flagyl to vancomycin today. We will add as needed Imodium. Time Spent With Patient Time: Total time spent is greater than 50% in coordination of care (as documented) at patient's floor/unit and/or counseling patient:
[2020-12-04] MEDS: VANCOMYCIN ORAL SOL 1,000 MG/10 ML BOTTLE PO SCH ×3 (14:04→21:37)
[2020-12-04] MEDS ORDERED: FIDAXOMICIN 200 MG TABLET PO SCH (21:00)
[2020-12-04] MEDS: diphenhydrAMINE 25 MG CAPSULE PO SCH (21:37)
[2020-12-04] MEDS: ATORVASTATIN 10 MG TABLET PO SCH (21:37)
[2020-12-05] MEDS: ONDANSETRON 4 MG/2 ML VIAL IV PRN ×2 (00:57→20:49)
[2020-12-05] MEDS: 0.9 % SODIUM CHLORIDE 10 ML SYRINGE IV SCH ×3 (05:29→20:48)
[2020-12-05] MEDS: metroNIDAZOLE 500 MG TABLET PO SCH ×3 (05:29→20:48)
[2020-12-05] MEDS: 0.9 % SODIUM CHLORIDE 1,000 ML IV SCH ×3 (05:30→20:47)
[2020-12-05] MEDS ORDERED: POTASSIUM CHLORIDE 20 MEQ TABLET PO ONE (07:36)
[2020-12-05] MEDS ORDERED: 0.9 % SODIUM CHLORIDE 250 ML IV SCH (07:45)
[2020-12-05] MEDS: DICYCLOMINE 20 MG TABLET PO SCH ×3 (08:07→20:48)
[2020-12-05] MEDS: amLODIPine 5 MG TABLET PO SCH (08:07)
[2020-12-05] MEDS: LOSARTAN 50 MG TABLET PO SCH (08:07)
[2020-12-05] MEDS: VANCOMYCIN ORAL SOL 1,000 MG/10 ML BOTTLE PO SCH ×4 (08:08→20:48)
[2020-12-05 08:24] LABS: Basophils # (Auto) 0.06 K/mcL (0.00-0.20); Basophils % (Auto) 0.4 % (0.0-2.0); Blood Urea Nitrogen 14 mg/dL (8-23); Calcium 7.7 mg/dL (8.6-10.4); Carbon Dioxide 26 mmol/L (22-30); Chloride 105 mmol/L (96-108); Eosinophils # (Auto) 0.08 K/mcL (0.00-0.70); Eosinophils % (Auto) 0.5 % (0.0-7.0); Glomerular Filtration Rate 66; Glucose 101 mg/dL (70-105); Hematocrit 20.7 % (41.0-55.0); Hemoglobin 6.6 g/dL (13.5-16.5); Lymphocytes # (Auto) 1.18 K/mcL (1.50-4.80); Lymphocytes % (Auto) 7.4 % (15.0-49.0); Mean Cell Volume 87.7 fL (80.0-100.0); Mean Corpuscular HGB Conc 31.9 g/dL (31.0-36.0); Mean Platelet Volume 10.1 fL (7.4-10.4); Monocytes # (Auto) 1.07 K/mcL (0.10-0.90); Monocytes % (Auto) 6.7 % (1.0-12.0); Platelet Count 451 K/mcL (140-440); RBC 2.36 M/mcL (4.50-5.90); Red Cell Distribution Width 13.7 % (11.5-14.5)
--- NOTE | 2020-12-05 09:15 | General Surgery Progress Note ---
SUBJECTIVE Subjective Patient information: Note initiated : 12/05/20 at 9:14 am Service Date, if different from initiated Date: [] Patient: Jean Judge 74 y/o M admitted on 11/23/20 for Exploratory Laparotomy, Ostomy Reversal. Chief Complaint: [] Principal diagnosis: Status post colostomy closure Interval history: Status post ostomy closure. Postoperative severe diarrhea, questionable C. difficile infection. Patient was started on C. difficile treatment, reports slightly decreased bowel movements over the last 24 hours. Constitutional Vitals: Vital Signs Temp Pulse Resp BP Pulse Ox 98.7 F 73 22 118/58 94 12/05/20 07:29 12/05/20 07:29 12/05/20 07:29 12/05/20 07:29 12/05/20 07:29 Period Temp Pulse Resp BP Sys/Becerra Pulse Ox Last 24 Hr 97.6 F-98.7 F 73-87 16-22 118-133/56-85 93-95 Intake and Output 12/04/20 12/05/20 12/05/20 21:59 05:59 13:59 Intake Total 1379 1380 Balance 1379 1380 Weight 172 lb 8 oz Intake & Output: Intake & Output 12/04/20 12/05/20 12/05/20 21:59 05:59 13:59 Intake Total 1379 1380 Balance 1379 1380 Weight 172 lb 8 oz Intake: IV 929 980 Sodium Chloride 0.9% 1,000 ml @ 929 980 75 mls/hr IV .[id number] [facility] Rx#: [id number] Oral 450 400 Other: Stool Size Small Moderate Small Stool Color Black Brown Black Stool Consistency Liquid Liquid Liquid # Voids 4 1 # Bowel Movements 4 1 2 # of times incontinent of 1 1 Bowels General appearance: cooperative and no acute distress GI/Abdominal GI/Abdominal exam: Present soft; Absent distended and tenderness A/P Narrative A/P Narrative: Slight improvement in diarrhea over the last 24 hours. We will continue with oral vancomycin, oral Flagyl. Continue to follow amount of bowel movements. Time Spent With Patient Time: Total time spent is greater than 50% in coordination of care (as documented) at patient's floor/unit and/or counseling patient:
[2020-12-05] MEDS: oxyCODONE HCL 5 MG TABLET PO PRN ×2 (09:29→20:47)
[2020-12-05] MEDS: diphenhydrAMINE 25 MG CAPSULE PO SCH (20:47)
[2020-12-05] MEDS: ATORVASTATIN 10 MG TABLET PO SCH (20:47)
[2020-12-06] MEDS: oxyCODONE HCL 5 MG TABLET PO PRN ×2 (04:17→20:52)
[2020-12-06] MEDS: 0.9 % SODIUM CHLORIDE 10 ML SYRINGE IV SCH ×3 (04:17→20:53)
[2020-12-06] MEDS: metroNIDAZOLE 500 MG TABLET PO SCH ×3 (06:00→22:05)
[2020-12-06 07:41] LABS: Blood Urea Nitrogen 14 mg/dL (8-23); Calcium 7.4 mg/dL (8.6-10.4); Carbon Dioxide 24 mmol/L (22-30); Chloride 107 mmol/L (96-108); Glomerular Filtration Rate 84; Glucose 103 mg/dL (70-105)
[2020-12-06 07:45] LABS: Basophils # (Auto) 0.06 K/mcL (0.00-0.20); Basophils % (Auto) 0.4 % (0.0-2.0); Eosinophils # (Auto) 0.07 K/mcL (0.00-0.70); Eosinophils % (Auto) 0.5 % (0.0-7.0); Hematocrit 20.7 % (41.0-55.0); Hemoglobin 6.5 g/dL (13.5-16.5); Lymphocytes # (Auto) 1.11 K/mcL (1.50-4.80); Lymphocytes % (Auto) 7.7 % (15.0-49.0); Mean Cell Volume 87.3 fL (80.0-100.0); Mean Corpuscular HGB Conc 31.4 g/dL (31.0-36.0); Mean Platelet Volume 9.8 fL (7.4-10.4); Monocytes # (Auto) 0.81 K/mcL (0.10-0.90); Monocytes % (Auto) 5.6 % (1.0-12.0); Neutrophils % (Auto) 85.8 % (38.0-78.0); Platelet Count 466 K/mcL (140-440); RBC 2.37 M/mcL (4.50-5.90); WBC 14.4 K/mcL (4.5-11.0)
[2020-12-06] MEDS ORDERED: 0.9 % SODIUM CHLORIDE 250 ML IV SCH (08:15)
--- NOTE | 2020-12-06 08:32 | General Surgery Progress Note ---
SUBJECTIVE Subjective Patient information: Note initiated : 12/06/20 at 8:31 am Service Date, if different from initiated Date: [] Patient: Jean Judge 74 y/o M admitted on 11/23/20 for Exploratory Laparotomy, Ostomy Reversal. Chief Complaint: [] Principal diagnosis: Status post colostomy closure Interval history: Postop ostomy reversal with continued diarrhea. Patient reports his diarrhea is slightly improved over the last 24 hours, he is able to get to the commode without difficulty. It is still darkly colored. Constitutional Vitals: Vital Signs Temp Pulse Resp BP Pulse Ox 97.1 F 71 22 119/62 97 12/06/20 08:00 12/06/20 08:00 12/06/20 08:00 12/06/20 08:00 12/06/20 08:00 Period Temp Pulse Resp BP Sys/Becerra Pulse Ox Last 24 Hr 97.0 F-98.3 F 71-82 18-22 119-141/59-63 94-100 Intake and Output 12/05/20 12/06/20 12/06/20 21:59 05:59 13:59 Intake Total 2185 250 Balance 2185 250 Weight 177 lb Intake & Output: Intake & Output 12/05/20 12/06/20 12/06/20 21:59 05:59 13:59 Intake Total 2185 250 Balance 2185 250 Weight 177 lb Intake: Nourishment/Supplement quantity 640 (ml) IV 1065 Sodium Chloride 0.9% 1,000 ml @ 866 75 mls/hr IV .[id number] [facility] Rx#: [id number] Sodium Chloride 0.9% 250 ml @ 199 20 mls/hr IV .[id number] [facility] Rx#: [id number] Oral 480 250 Other: Meal Dinner Percent of Meal Consumed 75% Feeding Ability Independent Nourishment/Supplement name Boost Stool Size Moderate Moderate Moderate Stool Color Black Black Brown Stool Consistency Soft Loose Watery Loose # Voids 1 1 1 # Bowel Movements 3 1 1 General appearance: cooperative and no acute distress GI/Abdominal GI/Abdominal exam: Present soft; Absent distended, guarding and tenderness A/P Narrative A/P Narrative: The pleasant 74-year-old gentleman status post ostomy reversal complicated by postop diarrhea and GI bleed. Continue with antibiotics. Will start Protonix. We will continue to follow H&H. Time Spent With Patient Time: Total time spent is greater than 50% in coordination of care (as documented) at patient's floor/unit and/or counseling patient:
[2020-12-06] MEDS: 0.9 % SODIUM CHLORIDE 1,000 ML IV SCH ×2 (08:39→22:05)
[2020-12-06] MEDS: amLODIPine 5 MG TABLET PO SCH (09:07)
[2020-12-06] MEDS: LOSARTAN 50 MG TABLET PO SCH (09:07)
[2020-12-06] MEDS: DICYCLOMINE 20 MG TABLET PO SCH ×3 (10:01→20:52)
[2020-12-06] MEDS: VANCOMYCIN ORAL SOL 1,000 MG/10 ML BOTTLE PO SCH ×4 (10:01→20:53)
[2020-12-06] MEDS: PANTOPRAZOLE 40 MG PACKET PO SCH (17:13)
[2020-12-06 17:45] LABS: Hematocrit 23.8 % (41.0-55.0); Hemoglobin 7.5 g/dL (13.5-16.5)
[2020-12-06] MEDS: diphenhydrAMINE 25 MG CAPSULE PO SCH (20:52)
[2020-12-06] MEDS: ATORVASTATIN 10 MG TABLET PO SCH (20:52)
[2020-12-07] MEDS: metroNIDAZOLE 500 MG TABLET PO SCH ×3 (05:59→21:12)
[2020-12-07] MEDS: 0.9 % SODIUM CHLORIDE 10 ML SYRINGE IV SCH ×3 (06:00→21:12)
[2020-12-07] MEDS: PANTOPRAZOLE 40 MG PACKET PO SCH ×2 (06:56→17:44)
[2020-12-07 07:21] LABS: Basophils # (Auto) 0.05 K/mcL (0.00-0.20); Basophils % (Auto) 0.5 % (0.0-2.0); Eosinophils # (Auto) 0.09 K/mcL (0.00-0.70); Eosinophils % (Auto) 0.8 % (0.0-7.0); Hematocrit 23.4 % (41.0-55.0); Hemoglobin 7.5 g/dL (13.5-16.5); Lymphocytes # (Auto) 1.19 K/mcL (1.50-4.80); Lymphocytes % (Auto) 10.9 % (15.0-49.0); Mean Cell Volume 85.4 fL (80.0-100.0); Mean Corpuscular HGB Conc 32.1 g/dL (31.0-36.0); Mean Platelet Volume 9.9 fL (7.4-10.4); Monocytes # (Auto) 0.75 K/mcL (0.10-0.90); Monocytes % (Auto) 6.9 % (1.0-12.0); Neutrophils % (Auto) 80.9 % (38.0-78.0); Platelet Count 512 K/mcL (140-440); RBC 2.74 M/mcL (4.50-5.90); Red Cell Distribution Width 14.7 % (11.5-14.5); WBC 10.9 K/mcL (4.5-11.0)
[2020-12-07 07:56] LABS: Blood Urea Nitrogen 11 mg/dL (8-23); Calcium 7.7 mg/dL (8.6-10.4); Carbon Dioxide 24 mmol/L (22-30); Chloride 105 mmol/L (96-108); Glomerular Filtration Rate 89; Glucose 101 mg/dL (70-105)
[2020-12-07] MEDS: amLODIPine 5 MG TABLET PO SCH (08:54)
[2020-12-07] MEDS: DICYCLOMINE 20 MG TABLET PO SCH ×3 (08:54→21:12)
[2020-12-07] MEDS: LOSARTAN 50 MG TABLET PO SCH (08:54)
[2020-12-07] MEDS: VANCOMYCIN ORAL SOL 1,000 MG/10 ML BOTTLE PO SCH ×4 (08:54→21:12)
[2020-12-07] MEDS: 0.9 % SODIUM CHLORIDE 1,000 ML IV SCH ×2 (13:01→13:33)
--- NOTE | 2020-12-07 14:01 | General Surgery Progress Note ---
SUBJECTIVE Subjective Patient information: Note initiated : 12/07/20 at 2:00 pm Service Date, if different from initiated Date: [] Patient: Jean Judge 74 y/o M admitted on 11/23/20 for Exploratory Laparotomy, Ostomy Reversal. Chief Complaint: [] Principal diagnosis: Status post colostomy closure Interval history: Patient feels much better today, but movements are becoming more manageable however are still watery. Has not noticed any further blood in the stools. He overall feels better and is tolerating more of a regular diet. Constitutional Vitals: Vital Signs Temp Pulse Resp BP Pulse Ox 97.9 F 77 22 125/70 98 12/07/20 08:00 12/07/20 08:00 12/07/20 08:00 12/07/20 08:00 12/07/20 08:00 Period Temp Pulse Resp BP Sys/Becerra Pulse Ox Last 24 Hr 97.6 F-98.1 F 71-83 20-24 120-131/57-73 95-98 Intake and Output 12/07/20 12/07/20 12/07/20 05:59 13:59 21:59 Intake Total 250 1200 Balance 250 1200 Intake & Output: Intake & Output 12/07/20 12/07/20 12/07/20 05:59 13:59 21:59 Intake Total 250 1200 Balance 250 1200 Intake: IV 1000 Sodium Chloride 0.9% 1,000 ml @ 1000 75 mls/hr IV .[id number] [facility] Rx#: [id number] Oral 250 200 Other: Meal Breakfast Percent of Meal Consumed 75% Feeding Ability Assist with Tray Set Up Stool Size Small Small Stool Color Black Brown Stool Consistency Liquid Liquid Loose Watery # Voids 1 1 # Bowel Movements 1 1 # of times incontinent of 1 Bowels General appearance: cooperative and no acute distress GI/Abdominal GI/Abdominal exam: Present soft; Absent distended and tenderness A/P Narrative A/P Narrative: Slow improvement. Waiting for bowel movements to slow down. Anticipate discharge in the next several days. Time Spent With Patient Time: Total time spent is greater than 50% in coordination of care (as document ed) at patient's floor/unit and/or counseling patient:
[2020-12-07] MEDS ORDERED: POTASSIUM CHLORIDE 20 MEQ TABLET PO ONE (16:45)
[2020-12-07] MEDS: diphenhydrAMINE 25 MG CAPSULE PO SCH (21:11)
[2020-12-07] MEDS: ATORVASTATIN 10 MG TABLET PO SCH (21:11)
[2020-12-08] MEDS: 0.9 % SODIUM CHLORIDE 1,000 ML IV SCH ×2 (00:05→16:27)
[2020-12-08] MEDS: metroNIDAZOLE 500 MG TABLET PO SCH ×3 (06:13→21:42)
[2020-12-08] MEDS: 0.9 % SODIUM CHLORIDE 10 ML SYRINGE IV SCH ×3 (06:13→21:43)
[2020-12-08 06:43] LABS: Basophils # (Auto) 0.05 K/mcL (0.00-0.20); Basophils % (Auto) 0.6 % (0.0-2.0); Eosinophils # (Auto) 0.07 K/mcL (0.00-0.70); Eosinophils % (Auto) 0.9 % (0.0-7.0); Hematocrit 22.9 % (41.0-55.0); Hemoglobin 7.2 g/dL (13.5-16.5); Lymphocytes # (Auto) 1.23 K/mcL (1.50-4.80); Lymphocytes % (Auto) 15.8 % (15.0-49.0); Mean Cell Volume 86.4 fL (80.0-100.0); Mean Corpuscular HGB Conc 31.4 g/dL (31.0-36.0); Mean Platelet Volume 9.9 fL (7.4-10.4); Monocytes # (Auto) 0.73 K/mcL (0.10-0.90); Monocytes % (Auto) 9.4 % (1.0-12.0); Neutrophils % (Auto) 73.3 % (38.0-78.0); Platelet Count 544 K/mcL (140-440); RBC 2.65 M/mcL (4.50-5.90); Red Cell Distribution Width 14.6 % (11.5-14.5); WBC 7.8 K/mcL (4.5-11.0)
[2020-12-08 07:07] LABS: Blood Urea Nitrogen 10 mg/dL (8-23); Carbon Dioxide 26 mmol/L (22-30); Chloride 106 mmol/L (96-108); Glomerular Filtration Rate 89; Glucose 100 mg/dL (70-105)
[2020-12-08] MEDS: PANTOPRAZOLE 40 MG PACKET PO SCH ×2 (07:12→17:01)
[2020-12-08] MEDS: amLODIPine 5 MG TABLET PO SCH (09:04)
[2020-12-08] MEDS: POTASSIUM CHLORIDE 20 MEQ TABLET PO SCH (09:04)
[2020-12-08] MEDS: DICYCLOMINE 20 MG TABLET PO SCH ×3 (09:05→21:42)
[2020-12-08] MEDS: VANCOMYCIN ORAL SOL 1,000 MG/10 ML BOTTLE PO SCH ×4 (09:05→21:42)
[2020-12-08] MEDS: LOSARTAN 50 MG TABLET PO SCH (09:05)
--- NOTE | 2020-12-08 15:50 | General Surgery Progress Note ---
SUBJECTIVE Subjective Patient information: Note initiated : 12/08/20 at 3:48 pm Service Date, if different from initiated Date: [] Patient: Jean Judge 74 y/o M admitted on 11/23/20 for Exploratory Laparotomy, Ostomy Reversal. Chief Complaint: [] Principal diagnosis: Status post colostomy closure Interval history: Status post ostomy closure with postop complicated by persistent diarrhea, patient reports over the last 24 to 48 hours the diarrhea has significantly decreased, he is able to make it to the restroom without difficulty, he is now tolerating a regular diet. Constitutional Vitals: Vital Signs Temp Pulse Resp BP Pulse Ox 97.1 F 71 20 107/52 97 12/08/20 12:00 12/08/20 12:00 12/08/20 12:00 12/08/20 12:00 12/08/20 12:00 Period Temp Pulse Resp BP Sys/Becerra Pulse Ox Last 24 Hr 97.1 F-98.1 F 61-76 20-24 107-139/52-71 96-100 Intake and Output 12/08/20 12/08/20 12/08/20 05:59 13:59 21:59 Intake Total 100 390 Balance 100 390 Intake & Output: Intake & Output 12/08/20 12/08/20 12/08/20 05:59 13:59 21:59 Intake Total 100 390 Balance 100 390 Intake: Oral 100 390 Other: Meal Lunch Percent of Meal Consumed 100% Feeding Ability Assist with Tray Set Up Stool Size Small Small Stool Color Black Brown Stool Consistency Loose Soft # Voids 1 1 # Bowel Movements 2 1 # of times incontinent of 1 1 Bowels General appearance: cooperative and no acute distress GI/Abdominal GI/Abdominal exam: Present soft; Absent distended and tenderness Additional comments: Incision is clean dry and intact A/P Narrative A/P Narrative: Postop ostomy reversal. Patient is progressing now, diarrhea has slowed down. Anticipate discharge tomorrow. Time Spent With Patient Time: Total time spent is greater than 50% in coordination of care (as docume nted) at patient's floor/unit and/or counseling patient:
[2020-12-08] MEDS: ATORVASTATIN 10 MG TABLET PO SCH (21:42)
[2020-12-08] MEDS: diphenhydrAMINE 25 MG CAPSULE PO SCH (21:42)
[2020-12-09] MEDS: oxyCODONE HCL 5 MG TABLET PO PRN (00:11)
[2020-12-09] MEDS: metroNIDAZOLE 500 MG TABLET PO SCH ×3 (05:49→20:53)
[2020-12-09] MEDS: 0.9 % SODIUM CHLORIDE 10 ML SYRINGE IV SCH ×3 (05:49→20:54)
[2020-12-09 07:03] LABS: Basophils # (Auto) 0.07 K/mcL (0.00-0.20); Basophils % (Auto) 1.1 % (0.0-2.0); Eosinophils # (Auto) 0.07 K/mcL (0.00-0.70); Eosinophils % (Auto) 1.1 % (0.0-7.0); Hemoglobin 7.3 g/dL (13.5-16.5); Lymphocytes # (Auto) 1.36 K/mcL (1.50-4.80); Lymphocytes % (Auto) 21.8 % (15.0-49.0); Mean Cell Volume 87.8 fL (80.0-100.0); Mean Corpuscular HGB Conc 31.7 g/dL (31.0-36.0); Mean Platelet Volume 9.7 fL (7.4-10.4); Monocytes # (Auto) 0.79 K/mcL (0.10-0.90); Monocytes % (Auto) 12.6 % (1.0-12.0); Neutrophils % (Auto) 63.4 % (38.0-78.0); Platelet Count 577 K/mcL (140-440); RBC 2.62 M/mcL (4.50-5.90); Red Cell Distribution Width 15.3 % (11.5-14.5); WBC 6.3 K/mcL (4.5-11.0)
[2020-12-09] MEDS: PANTOPRAZOLE 40 MG PACKET PO SCH ×2 (07:11→17:28)
[2020-12-09 07:27] LABS: Blood Urea Nitrogen 11 mg/dL (8-23); Calcium 8.1 mg/dL (8.6-10.4); Carbon Dioxide 26 mmol/L (22-30); Chloride 105 mmol/L (96-108); Glomerular Filtration Rate 84; Glucose 103 mg/dL (70-105)
[2020-12-09] MEDS: VANCOMYCIN ORAL SOL 1,000 MG/10 ML BOTTLE PO SCH ×4 (08:55→20:53)
[2020-12-09] MEDS: amLODIPine 5 MG TABLET PO SCH (08:55)
[2020-12-09] MEDS: DICYCLOMINE 20 MG TABLET PO SCH ×3 (08:55→20:53)
[2020-12-09] MEDS: POTASSIUM CHLORIDE 20 MEQ TABLET PO SCH (08:55)
[2020-12-09] MEDS: LOSARTAN 50 MG TABLET PO SCH (08:55)
[2020-12-09] MEDS: ATORVASTATIN 10 MG TABLET PO SCH (20:53)
[2020-12-09] MEDS: diphenhydrAMINE 25 MG CAPSULE PO SCH (20:53)
[2020-12-10] MEDS: metroNIDAZOLE 500 MG TABLET PO SCH ×3 (04:46→21:49)
[2020-12-10] MEDS: 0.9 % SODIUM CHLORIDE 10 ML SYRINGE IV SCH ×3 (04:46→21:41)
[2020-12-10] MEDS: PANTOPRAZOLE 40 MG PACKET PO SCH ×2 (06:46→17:00)
--- NOTE | 2020-12-10 08:04 | General Surgery Progress Note ---
SUBJECTIVE Subjective Patient information: Note initiated : 12/10/20 at 8:02 am Service Date, if different from initiated Date: [] Patient: Jean Judge 74 y/o M admitted on 11/23/20 for Exploratory Laparotomy, Ostomy Reversal. Chief Complaint: [] Principal diagnosis: Status post colostomy closure Interval history: Slowly improving. Decreased amount of bowel movements. Afebrile no fevers no chills no nausea no vomiting. Constitutional Vitals: Vital Signs Temp Pulse Resp BP Pulse Ox 97.2 F 86 18 126/73 94 12/10/20 07:42 12/10/20 07:42 12/10/20 07:42 12/10/20 07:42 12/10/20 07:42 Period Temp Pulse Resp BP Sys/Becerra Pulse Ox Last 24 Hr 97.2 F-97.8 F 66-86 18-22 118-128/53-73 94-100 Intake and Output 12/09/20 12/10/20 12/10/20 21:59 05:59 13:59 Intake Total 250 400 Balance 250 400 Weight 179 lb 8 oz Intake & Output: Intake & Output 12/09/20 12/10/20 12/10/20 21:59 05:59 13:59 Intake Total 250 400 Balance 250 400 Weight 179 lb 8 oz Intake: Nourishment/Supplement quantity 50 (ml) Oral 200 400 Other: Meal Dinner Percent of Meal Consumed 100% Nourishment/Supplement name ensure Stool Size Small Small Stool Color Black Brown Stool Consistency Loose Loose Liquid # Voids 2 3 # Bowel Movements 3 3 General appearance: cooperative and no acute distress GI/Abdominal GI/Abdominal exam: Present soft; Absent distended and tenderness A/P Narrative A/P Narrative: Patient slowly improving status post ostomy reversal. will continue to follow. Time Spent With Patient Time: Total time spent is greater than 50% in coordination of care (as documented) at patient's floor/unit and/or counseling patient:
[2020-12-10] MEDS: DICYCLOMINE 20 MG TABLET PO SCH ×3 (09:54→21:41)
[2020-12-10] MEDS: POTASSIUM CHLORIDE 20 MEQ TABLET PO SCH (09:54)
[2020-12-10] MEDS: LOSARTAN 50 MG TABLET PO SCH (09:54)
[2020-12-10] MEDS: amLODIPine 5 MG TABLET PO SCH (09:54)
[2020-12-10] MEDS: VANCOMYCIN ORAL SOL 1,000 MG/10 ML BOTTLE PO SCH ×4 (09:55→21:41)
[2020-12-10] MEDS: ATORVASTATIN 10 MG TABLET PO SCH (21:41)
[2020-12-10] MEDS: diphenhydrAMINE 25 MG CAPSULE PO SCH (21:41)
[2020-12-11] MEDS: metroNIDAZOLE 500 MG TABLET PO SCH ×2 (06:12→13:26)
[2020-12-11] MEDS: 0.9 % SODIUM CHLORIDE 10 ML SYRINGE IV SCH (06:12)
[2020-12-11] MEDS: PANTOPRAZOLE 40 MG PACKET PO SCH (07:27)
[2020-12-11 08:35] LABS: Basophils # (Auto) 0.08 K/mcL (0.00-0.20); Basophils % (Auto) 1.2 % (0.0-2.0); Eosinophils # (Auto) 0.05 K/mcL (0.00-0.70); Eosinophils % (Auto) 0.8 % (0.0-7.0); Hematocrit 25.8 % (41.0-55.0); Hemoglobin 7.8 g/dL (13.5-16.5); Lymphocytes # (Auto) 1.28 K/mcL (1.50-4.80); Lymphocytes % (Auto) 19.4 % (15.0-49.0); Mean Cell Volume 91.5 fL (80.0-100.0); Mean Corpuscular HGB Conc 30.2 g/dL (31.0-36.0); Mean Platelet Volume 9.6 fL (7.4-10.4); Monocytes # (Auto) 0.58 K/mcL (0.10-0.90); Monocytes % (Auto) 8.8 % (1.0-12.0); Neutrophils % (Auto) 69.8 % (38.0-78.0); Platelet Count 640 K/mcL (140-440); RBC 2.82 M/mcL (4.50-5.90); Red Cell Distribution Width 15.6 % (11.5-14.5); WBC 6.6 K/mcL (4.5-11.0)
[2020-12-11 08:47] LABS: Blood Urea Nitrogen 10 mg/dL (8-23); Calcium 8.5 mg/dL (8.6-10.4); Carbon Dioxide 26 mmol/L (22-30); Chloride 103 mmol/L (96-108); Glomerular Filtration Rate 84; Glucose 94 mg/dL (70-105)
[2020-12-11] MEDS: LOSARTAN 50 MG TABLET PO SCH (09:53)
[2020-12-11] MEDS: amLODIPine 5 MG TABLET PO SCH (09:53)
[2020-12-11] MEDS: DICYCLOMINE 20 MG TABLET PO SCH (09:53)
[2020-12-11] MEDS: POTASSIUM CHLORIDE 20 MEQ TABLET PO SCH (09:53)
[2020-12-11] MEDS: VANCOMYCIN ORAL SOL 1,000 MG/10 ML BOTTLE PO SCH ×2 (09:54→13:27)
--- NOTE | 2020-12-11 12:16 | Discharge Summary ---
Discharge Provider Provider Patient information: Note initiated : 12/11/20 at 12:05 pm Service Date, if different from initiated Date: [] Patient: Jean Judge 74 y/o M admitted on 11/23/20 for Exploratory Laparotomy, Ostomy Reversal. Chief Complaint: [] Date of admission: 11/23/20 04:53 Discharge date: 12/11/20 Primary care physician: Migdalia Lei Admitting clinician: Glenroy Weber Attending physician on admission: Glenroy Weber Attending physician on discharge: Georgette King Discharging clinician: Georgette King COURSE Hospital Course Hospital course: 74-year-old male who was admitted on 23 November after undergoing colostomy takedown. The surgery progressed uneventfully and the patient started having flatus on the first postoperative day. By the third postoperative day he developed diarrhea which increased in frequency and volume. He also had some blood that gradually resolved. He had anorexia with poor p.o. intake and his BUN and creatinine increased to 35 and 1.5 respectively by 28 November. He was taken off Toradol and hydrated and his BUN and creatinine returned to normal by 30 November. He continued to have diarrhea. His C. difficile GDH was positive and his PCR was positive however his AMB toxins were negative. The patient developed leukocytosis and was finally started on metronidazole. With metronidazole therapy his white blood count returned to normal and his frequency and volume of bowel movements decreased. His white blood count is now 6.6. BUN is 10 and creatinine 0.9. Patient is clinically stable and is tolerating diet without difficulty. He is ready for discharge home and will follow up with Dr. Weber in 2 weeks. Discharge diagnosis: Colostomy status Secondary discharge diagnosis: Renal and prerenal azotemia Positive C. difficile GDH and PCR with negative a and B toxins Acute diarrhea associated with C. difficile Hypertension Reason for admission: Postoperative colostomy takedown Procedures: Colostomy takedown Pertinent studies/significant findings: None Complications: None Time Spent with Patient Time attestation: Total time spent providing and/or coordinating discharge services: Physical Examination Vital Signs Vital signs: Temp Pulse Resp BP Pulse Ox 97.6 F 78 16 122/64 93 12/11/20 11:49 12/11/20 11:49 12/11/20 11:49 12/11/20 11:49 12/11/20 11:49 General physical appearance General physical exam: well developed, no distress, no pain and chronically ill Eyes Eye exam: PERRL and normal ocular movement ENT ENT exam: normal mucosa Head Head exam IM: Present atraumatic, normal inspection and normocephalic Neck Neck exam: no masses, no bruits, trachea midline, no lymphadenopathy and no venous distension Cardiovascular Cardiovascular exam IM: Present normal rate and rhythm Respiratory Respiratory exam: normal expansion, normal respiratory effort and clear to auscultation Abdomen Abdomen: Present soft, non tender, bowel sounds and surgical scars (Surgical scars healing nicely; stoma site is granulating in); Absent organomegaly Integumentary Integumentary: Present no rash, no growths and no abnormal pigmentation Neurologic Neurologic: Present normal coordination and normal sensation Musculoskeletal Musculoskeletal: Present normal gait and normal posture Psychiatric Psychiatric: Present oriented to time, oriented to person, oriented to place, speech is normal and memory intact Discharge Plan Patient/Caregiver Discharge Instructions Activity: increase activity as tolerated Diet: Regular Diet Activity Restrictions/Additional Instructions: Gradually increase activity as tolerated. May shower as normal. Follow-up with me in clinic in 1 to 2 weeks. Prescriptions: New ibuprofen 800 mg tablet 800 mg PO TID PRN (Reason: pain) Qty: 60 RF: 0 acetaminophen [Tylenol 8 Hour] 650 mg tablet extended release 650 mg PO Q8H PRN (Reason: pain) Qty: 60 RF: 0 oxycodone 5 mg tablet 5 mg PO Q6H PRN (Reason: pain) Qty: 5 RF: 0 metronidazole 500 mg tablet 500 mg PO TID Qty: 30 RF: 0 vancomycin 250 mg capsule 250 mg PO QID 10 Days Qty: 40 RF: 0 Continued atorvastatin 10 mg Tablet 10 mg PO QHS RF: 0 amlodipine 5 mg Tablet 5 mg PO QDAY RF: 0 losartan 100 mg tablet 50 mg PO QDAY RF: 0 Follow Up Plan Follow up with: Glenroy Weber MD [Physician] - Patient Disposition: Home Health Service Assessment: Patient is discharged in stable satisfactory condition Prognosis: Good Rehab Potential: Good I certify that the patient requires SNF services: No Overall status at discharge: patient is progressing back to baseline Discharge Orders: Discharge Order (Routine); Ordered 12/11/20 Ordered By: Georgette King Pending Pending Pending: Resuscitation Status Full Code Diet Regular Diet Start SunDec 06 1102 Acetaminophen (Acetaminophen 325 Mg Tablet) 650 mg PO Q6HP PRN; Protocol PRN Reason: Per Pain Protocol/Fever > 101 Last Admin: 11/30/20 12:37 Dose: 650 mg Documented by: Admin: 11/29/20 19:36 Dose: 650 mg Documented by: Admin: 11/29/20 07:20 Dose: 650 mg Documented by: Admin: 11/28/20 17:17 Dose: 650 mg Documented by: Admin: 11/27/20 23:30 Dose: 650 mg Documented by: Admin: 11/25/20 23:49 Dose: 650 mg Documented by: Admin: 11/25/20 03:43 Dose: 650 mg Documented by: PARVEZ Amlodipine Besylate (Amlodipine 5 Mg Tablet) 5 mg PO QDAY [facility] Admin: 12/11/20 09:53 Dose: 5 mg Documented by: Admin: 12/10/20 09:54 Dose: 5 mg Documented by: Admin: 12/09/20 08:55 Dose: 5 mg Documented by: Admin: 12/08/20 09:04 Dose: 5 mg Documented by: Admin: 12/07/20 08:54 Dose: 5 mg Documented by: Admin: 12/06/20 09:07 Dose: Not Given Documented by: Admin: 12/05/20 08:07 Dose: 5 mg Documented by: Admin: 12/04/20 08:59 Dose: 5 mg Documented by: Admin: 12/03/20 08:12 Dose: 5 mg Documented by: Admin: 12/02/20 08:05 Dose: 5 mg Documented by: Admin: 12/01/20 09:31 Dose: 5 mg Documented by: Admin: 11/30/20 08:26 Dose: 5 mg Documented by: Admin: 11/29/20 07:58 Dose: 5 mg Documented by: Admin: 11/28/20 09:10 Dose: 5 mg Documented by: Admin: 11/27/20 08:20 Dose: 5 mg Documented by: Admin: 11/26/20 08:23 Dose: 5 mg Documented by: Admin: 11/25/20 08:35 Dose: 5 mg Documented by: [email or web address] Atorvastatin Calcium (Atorvastatin 10 Mg Tablet) 10 mg PO QHS [facility] Admin: 12/10/20 21:41 Dose: 10 mg Documented by: Admin: 12/09/20 20:53 Dose: 10 mg Documented by: Admin: 12/08/20 21:42 Dose: 10 mg Documented by: Admin: 12/07/20 21:11 Dose: 10 mg Documented by: Admin: 12/06/20 20:52 Dose: 10 mg Documented by: Admin: 12/05/20 20:47 Dose: 10 mg Documented by: Admin: 12/04/20 21:37 Dose: 10 mg Documented by: Admin: 12/03/20 21:39 Dose: 10 mg Documented by: Admin: 12/02/20 20:23 Dose: 10 mg Documented by: Admin: 12/01/20 20:23 Dose: 10 mg Documented by: Admin: 11/30/20 20:20 Dose: 10 mg Documented by: Admin: 11/29/20 21:22 Dose: 10 mg Documented by: Admin: 11/28/20 20:25 Dose: 10 mg Documented by: Admin: 11/27/20 20:26 Dose: 10 mg Documented by: Admin: 11/26/20 20:32 Dose: 10 mg Documented by: Admin: 11/25/20 22:08 Dose: 10 mg Documented by: PARVEZ Dicyclomine HCl (Dicyclomine 20 Mg Tablet) 20 mg PO TID [facility] Admin: 12/11/20 09:53 Dose: 20 mg Documented by: Admin: 12/10/20 21:41 Dose: 20 mg Documented by: Admin: 12/10/20 15:01 Dose: 20 mg Documented by: Admin: 12/10/20 09:54 Dose: 20 mg Documented by: Admin: 12/09/20 20:53 Dose: 20 mg Documented by: Admin: 12/09/20 14:36 Dose: 20 mg Documented by: Admin: 12/09/20 08:55 Dose: 20 mg Documented by: Admin: 12/08/20 21:42 Dose: 20 mg Documented by: Admin: 12/08/20 14:43 Dose: 20 mg Documented by: Admin: 12/08/20 09:05 Dose: 20 mg Documented by: Admin: 12/07/20 21:12 Dose: 20 mg Documented by: Admin: 12/07/20 15:45 Dose: 20 mg Documented by: Admin: 12/07/20 08:54 Dose: 20 mg Documented by: Admin: 12/06/20 20:52 Dose: 20 mg Documented by: Admin: 12/06/20 15:16 Dose: 20 mg Documented by: Admin: 12/06/20 10:01 Dose: 20 mg Documented by: Admin: 12/05/20 20:48 Dose: 20 mg Documented by: Admin: 12/05/20 15:19 Dose: 20 mg Documented by: Admin: 12/05/20 08:07 Dose: 20 mg Documented by: Admin: 12/04/20 21:37 Dose: 20 mg Documented by: Admin: 12/04/20 14:04 Dose: 20 mg Documented by: Admin: 12/04/20 08:59 Dose: 20 mg Documented by: Admin: 12/03/20 21:39 Dose: 20 mg Documented by: Admin: 12/03/20 14:26 Dose: 20 mg Documented by: Admin: 12/03/20 08:12 Dose: 20 mg Documented by: Admin: 12/02/20 20:23 Dose: 20 mg Documented by: Admin: 12/02/20 16:15 Dose: 20 mg Documented by: Admin: 12/02/20 08:05 Dose: 20 mg Documented by: Admin: 12/01/20 20:23 Dose: 20 mg Documented by: Admin: 12/01/20 15:36 Dose: 20 mg Documented by: Admin: 12/01/20 09:31 Dose: 20 mg Documented by: Admin: 11/30/20 20:19 Dose: 20 mg Documented by: Admin: 11/30/20 15:11 Dose: 20 mg Documented by: Admin: 11/30/20 08:26 Dose: 20 mg Documented by: Admin: 11/29/20 21:21 Dose: 20 mg Documented by: Admin: 11/29/20 14:33 Dose: 20 mg Documented by: Admin: 11/29/20 07:58 Dose: 20 mg Documented by: Admin: 11/28/20 20:25 Dose: 20 mg Documented by: MALIA Diphenhydramine HCl (Diphenhydramine 25 Mg Capsule) 50 mg PO HS [facility] Last Admin: 12/10/20 21:41 Dose: 50 mg Documented by: Admin: 12/09/20 20:53 Dose: 50 mg Documented by: Admin: 12/08/20 21:42 Dose: 50 mg Documented by: Admin: 12/07/20 21:11 Dose: 50 mg Documented by: Admin: 12/06/20 20:52 Dose: 50 mg Documented by: Admin: 12/05/20 20:47 Dose: 50 mg Documented by: Admin: 12/04/20 21:37 Dose: 50 mg Documented by: Admin: 12/03/20 21:38 Dose: 50 mg Documented by: Admin: 12/02/20 20:23 Dose: 50 mg Documented by: Admin: 12/01/20 20:23 Dose: 50 mg Documented by: Admin: 11/30/20 20:20 Dose: 50 mg Documented by: Admin: 11/29/20 21:22 Dose: 50 mg Documented by: Admin: 11/28/20 20:24 Dose: 50 mg Documented by: MALIA Hydromorphone HCl (Hydromorphone 0.5 Mg/0.5 Ml Syringe) 0.5 mg IV Q2HP PRN; Protocol PRN Reason: Per Pain Protocol Last Admin: 11/28/20 02:45 Dose: 0.5 mg Documented by: Admin: 11/27/20 02:55 Dose: 0.5 mg Documented by: Admin: 11/26/20 20:32 Dose: 0.5 mg Documented by: Admin: 11/23/20 12:51 Dose: 0.5 mg Documented by: Admin: 11/23/20 10:39 Dose: 0.5 mg Documented by: EFRA Losartan Potassium (Losartan 50 Mg Tablet) 50 mg PO DAILY [facility] Last Admin: 12/11/20 09:53 Dose: 50 mg Documented by: Admin: 12/10/20 09:54 Dose: 50 mg Documented by: Admin: 12/09/20 08:55 Dose: 50 mg Documented by: Admin: 12/08/20 09:05 Dose: 50 mg Documented by: Admin: 12/07/20 08:54 Dose: 50 mg Documented by: Admin: 12/06/20 09:07 Dose: Not Given Documented by: Admin: 12/05/20 08:07 Dose: 50 mg Documented by: Admin: 12/04/20 08:59 Dose: 50 mg Documented by: Admin: 12/03/20 08:12 Dose: 50 mg Documented by: Admin: 12/02/20 08:05 Dose: 50 mg Documented by: Admin: 12/01/20 09:31 Dose: 50 mg Documented by: Admin: 11/30/20 08:26 Dose: 50 mg Documented by: Admin: 11/29/20 07:58 Dose: 50 mg Documented by: Admin: 11/28/20 09:10 Dose: 50 mg Documented by: Admin: 11/27/20 08:20 Dose: 50 mg Documented by: Admin: 11/26/20 08:23 Dose: 50 mg Documented by: Admin: 11/25/20 08:35 Dose: 50 mg Documented by: YAMILETH Metronidazole (Metronidazole 500 Mg Tablet) 500 mg PO Q8H [facility]; Protocol Last Admin: 12/11/20 06:12 Dose: 500 mg Documented by: Admin: 12/10/20 21:49 Dose: 500 mg Documented by: Admin: 12/10/20 15:01 Dose: 500 mg Documented by: Admin: 12/10/20 04:46 Dose: 500 mg Documented by: Admin: 12/09/20 20:53 Dose: 500 mg Documented by: Admin: 12/09/20 14:35 Dose: 500 mg Documented by: Admin: 12/09/20 05:49 Dose: 500 mg Documented by: Admin: 12/08/20 21:42 Dose: 500 mg Documented by: Admin: 12/08/20 14:43 Dose: 500 mg Documented by: Admin: 12/08/20 06:13 Dose: 500 mg Documented by: Admin: 12/07/20 21:12 Dose: 500 mg Documented by: Admin: 12/07/20 14:58 Dose: 500 mg Documented by: Admin: 12/07/20 05:59 Dose: 500 mg Documented by: Admin: 12/06/20 22:05 Dose: 500 mg Documented by: Admin: 12/06/20 13:44 Dose: 500 mg Documented by: Admin: 12/06/20 06:00 Dose: 500 mg Documented by: Admin: 12/05/20 20:48 Dose: 500 mg Documented by: Admin: 12/05/20 15:20 Dose: 500 mg Documented by: Admin: 12/05/20 05:29 Dose: 500 mg Documented by: Admin: 12/04/20 21:37 Dose: 500 mg Documented by: Admin: 12/04/20 14:04 Dose: 500 mg Documented by: Admin: 12/04/20 06:11 Dose: 500 mg Documented by: Admin: 12/03/20 21:39 Dose: 500 mg Documented by: Admin: 12/03/20 14:23 Dose: 500 mg Documented by: [email or web address] Ondansetron HCl (Ondansetron 4 Mg/2 Ml Vial) 4 mg IV Q6HP PRN PRN Reason: Nausea And Vomiting Last Admin: 12/05/20 20:49 Dose: 4 mg Documented by: Admin: 12/05/20 00:57 Dose: 4 mg Documented by: Admin: 12/03/20 19:57 Dose: 4 mg Documented by: Admin: 11/29/20 06:53 Dose: 4 mg Documented by: Admin: 11/28/20 11:35 Dose: 4 mg Documented by: Admin: 11/27/20 19:02 Dose: 4 mg Documented by: Admin: 11/27/20 07:42 Dose: 4 mg Documented by: Admin: 11/26/20 19:27 Dose: 4 mg Documented by: Admin: 11/26/20 03:42 Dose: 4 mg Documented by: Admin: 11/25/20 19:15 Dose: 4 mg Documented by: Admin: 11/25/20 05:00 Dose: 4 mg Documented by: Admin: 11/24/20 23:03 Dose: 4 mg Documented by: OLIMPIA Oxycodone HCl (Oxycodone Hcl 5 Mg Tablet) 5 mg PO Q4HP PRN; Protocol PRN Reason: Per Pain Protocol Last Admin: 12/09/20 00:11 Dose: 5 mg Documented by: Admin: 12/06/20 20:52 Dose: 5 mg Documented by: Admin: 12/06/20 04:17 Dose: 5 mg Documented by: Admin: 12/05/20 20:47 Dose: 5 mg Documented by: Admin: 12/05/20 09:29 Dose: 5 mg Documented by: Admin: 12/04/20 21:38 Dose: 5 mg Documented by: Admin: 12/04/20 08:59 Dose: 5 mg Documented by: Admin: 12/03/20 19:56 Dose: 5 mg Documented by: Admin: 12/03/20 01:58 Dose: 5 mg Documented by: Admin: 12/02/20 08:12 Dose: 5 mg Documented by: Admin: 12/02/20 01:47 Dose: 5 mg Documented by: Admin: 11/30/20 20:26 Dose: 5 mg Documented by: Admin: 11/29/20 00:46 Dose: 5 mg Documented by: Admin: 11/28/20 01:58 Dose: 5 mg Documented by: Admin: 11/27/20 15:53 Dose: 5 mg Documented by: Admin: 11/27/20 01:31 Dose: 5 mg Documented by: Admin: 11/26/20 18:49 Dose: 5 mg Documented by: Admin: 11/25/20 19:02 Dose: 5 mg Documented by: Admin: 11/25/20 02:29 Dose: 5 mg Documented by: Admin: 11/24/20 22:22 Dose: 5 mg Documented by: Admin: 11/24/20 17:06 Dose: 5 mg Documented by: Admin: 11/24/20 04:08 Dose: 5 mg Documented by: Admin: 11/23/20 23:59 Dose: 5 mg Documented by: Admin: 11/23/20 15:47 Dose: 5 mg Documented by: EFRA Pantoprazole Sodium (Pantoprazole 40 Mg Packet) 40 mg PO BIDAC [facility] Admin: 12/11/20 07:27 Dose: 40 mg Documented by: Admin: 12/10/20 17:00 Dose: 40 mg Documented by: Admin: 12/10/20 06:46 Dose: 40 mg Documented by: Admin: 12/09/20 17:28 Dose: 40 mg Documented by: Admin: 12/09/20 07:11 Dose: 40 mg Documented by: Admin: 12/08/20 17:01 Dose: 40 mg Documented by: Admin: 12/08/20 07:12 Dose: 40 mg Documented by: Admin: 12/07/20 17:44 Dose: 40 mg Documented by: Admin: 12/07/20 06:56 Dose: 40 mg Documented by: Admin: 12/06/20 17:13 Dose: 40 mg Documented by: DIOGENES Potassium Chloride (Potassium Chloride 20 Meq Tablet) 20 meq PO DAILY [facility] Admin: 12/11/20 09:53 Dose: 20 meq Documented by: Admin: 12/10/20 09:54 Dose: 20 meq Documented by: Admin: 12/09/20 08:55 Dose: 20 meq Documented by: Admin: 12/08/20 09:04 Dose: 20 meq Documented by: ELISE Sodium Chloride (0.9 % Sodium Chloride 10 Ml Syringe) 10 ml IV Q8 [facility] Admin: 12/11/20 06:12 Dose: 10 ml Documented by: Admin: 12/10/20 21:41 Dose: 10 ml Documented by: Admin: 12/10/20 15:02 Dose: 10 ml Documented by: Admin: 12/10/20 04:46 Dose: 10 ml Documented by: Admin: 12/09/20 20:54 Dose: 10 ml Documented by: Admin: 12/09/20 14:35 Dose: 10 ml Documented by: Admin: 12/09/20 05:49 Dose: 10 ml Documented by: Admin: 12/08/20 21:43 Dose: 10 ml Documented by: Admin: 12/08/20 14:44 Dose: 10 ml Documented by: Admin: 12/08/20 06:13 Dose: 10 ml Documented by: Admin: 12/07/20 21:12 Dose: 10 ml Documented by: Admin: 12/07/20 14:58 Dose: 10 ml Documented by: Admin: 12/07/20 06:00 Dose: 10 ml Documented by: Admin: 12/06/20 20:53 Dose: 10 ml Documented by: Admin: 12/06/20 13:56 Dose: 10 ml Documented by: Admin: 12/06/20 04:17 Dose: 10 ml Documented by: Admin: 12/05/20 20:48 Dose: 10 ml Documented by: Admin: 12/05/20 15:20 Dose: 10 ml Documented by: Admin: 12/05/20 05:29 Dose: Not Given Documented by: Admin: 12/04/20 21:38 Dose: Not Given Documented by: Admin: 12/04/20 14:22 Dose: Not Given Documented by: Admin: 12/04/20 08:59 Dose: 10 ml Documented by: Admin: 12/03/20 21:56 Dose: Not Given Documented by: Admin: 12/03/20 14:23 Dose: Not Given Documented by: [email or web address] Admin: 12/03/20 05:21 Dose: Not Given Documented by: Admin: 12/02/20 20:24 Dose: Not Given Documented by: Admin: 12/02/20 13:11 Dose: Not Given Documented by: Admin: 12/02/20 05:05 Dose: Not Given Documented by: Admin: 12/01/20 20:24 Dose: Not Given Documented by: Admin: 12/01/20 13:55 Dose: Not Given Documented by: Admin: 12/01/20 06:01 Dose: Not Given Documented by: Admin: 11/30/20 20:20 Dose: Not Given Documented by: Admin: 11/30/20 13:28 Dose: Not Given Documented by: Admin: 11/30/20 05:54 Dose: Not Given Documented by: Admin: 11/29/20 22:08 Dose: Not Given Documented by: Admin: 11/29/20 12:08 Dose: Not Given Documented by: KATHERIN Vancomycin HCl (Vancomycin Oral Zainab 1,000 Mg/10 Ml Bottle) 250 mg PO QID [facility]; Protocol Last Admin: 12/11/20 09:54 Dose: 250 mg Documented by: Admin: 12/10/20 21:41 Dose: 250 mg Documented by: Admin: 12/10/20 17:02 Dose: 250 mg Documented by: Admin: 12/10/20 13:21 Dose: 250 mg Documented by: Admin: 12/10/20 09:55 Dose: 250 mg Documented by: Admin: 12/09/20 20:53 Dose: 250 mg Documented by: Admin: 12/09/20 17:28 Dose: 250 mg Documented by: Admin: 12/09/20 12:44 Dose: 250 mg Documented by: Admin: 12/09/20 08:55 Dose: 250 mg Documented by: Admin: 12/08/20 21:42 Dose: 250 mg Documented by: Admin: 12/08/20 17:01 Dose: 250 mg Documented by: Admin: 12/08/20 13:42 Dose: 250 mg Documented by: Admin: 12/08/20 09:05 Dose: 250 mg Documented by: Admin: 12/07/20 21:12 Dose: 250 mg Documented by: Admin: 12/07/20 17:43 Dose: 250 mg Documented by: Admin: 12/07/20 13:33 Dose: 250 mg Documented by: Admin: 12/07/20 08:54 Dose: 250 mg Documented by: Admin: 12/06/20 20:53 Dose: 250 mg Documented by: Admin: 12/06/20 17:13 Dose: 250 mg Documented by: Admin: 12/06/20 13:44 Dose: 250 mg Documented by: Admin: 12/06/20 10:01 Dose: 250 mg Documented by: Admin: 12/05/20 20:48 Dose: 250 mg Documented by: Admin: 12/05/20 17:03 Dose: 250 mg Documented by: Admin: 12/05/20 15:20 Dose: 250 mg Documented by: Admin: 12/05/20 08:08 Dose: 250 mg Documented by: Admin: 12/04/20 21:37 Dose: 250 mg Documented by: Admin: 12/04/20 16:25 Dose: 250 mg Documented by: Admin: 12/04/20 14:04 Dose: 250 mg Documented by: EFRA Shift Summary 12/11/20 02:40 Shift Summary by Leighton Ly Pt A/Ox4. Up ad dia in room. Loose stools improving. No pain meds requested this shift. Slept well. IV RFA SL. VSS ORA. Abdominal dressing CDI with bruising on abdomen. Expected to DC today. Will update at bedside Initialized on 12/11/20 02:40 - END OF NOTE
[2020-12-11] MEDS ORDERED: oxyCODONE HCL 5 MG TABLET PO PRN (12:20)
== END 2020-12-11 13:57 | disposition home health service (06) | DRG 345 ==
LOC: MEDSUR 04:53
PROVIDERS: ADMIT Surgery; ATTEND Family Medicine Adult Medicine

== ENCOUNTER 2021-12-08 07:32 | Inpatient (IN) ==
[2021-12-05 15:27] LABS: Basophils # (Auto) 0.05 K/mcL (0.00-0.30); Basophils % (Auto) 0.6 % (0.0-2.0); Eosinophils # (Auto) 0.02 K/mcL (0.00-0.70); Eosinophils % (Auto) 0.3 % (0.0-7.0); Hemoglobin 15.7 g/dL (13.7-17.5); Lymphocytes # (Auto) 1.68 K/mcL (1.50-4.80); Lymphocytes % (Auto) 21.6 % (15.5-49.0); Mean Cell Volume 89.1 fL (80.0-100.0); Monocytes # (Auto) 0.74 K/mcL (0.10-0.90); Monocytes % (Auto) 9.5 % (1.0-12.0); Platelet Count 299 K/mcL (140-440); Red Cell Distribution Width 12.6 % (11.5-14.5); WBC 7.8 K/mcL (4.5-11.0)
[2021-12-05 15:52] LABS: Blood Urea Nitrogen 16 mg/dL (8-23); Calcium 9.8 mg/dL (8.6-10.4); Carbon Dioxide 26 mmol/L (22-30); Chloride 102 mmol/L (96-108); Glomerular Filtration Rate 59; Glucose 93 mg/dL (70-105)
[~2021-12-08 07:32] MED LIST: ceFAZolin 2 GM in DEXTROSE 5% IN WATER 50 ML IV SCH
[2021-12-08] MEDS ORDERED: PROPOFOL 200 MG/20 ML VIAL IV ONE (09:45)
[2021-12-08] MEDS ORDERED: fentaNYL 250 MCG/5 ML VIAL IV ONE (09:45)
[2021-12-08] MEDS ORDERED: ROCURONIUM 10 MG/ML ML IV ONE (09:45)
[2021-12-08] MEDS ORDERED: MAGNESIUM SULFATE 2 GM/50 ML BAG IV ONE (09:45)
[2021-12-08] MEDS ORDERED: SUGAMMADEX SODIUM 200 MG/2 ML VIAL IV ONE (09:45)
[2021-12-08] MEDS ORDERED: LIDOCAINE HCL/PF 100 MG/5 ML SYRINGE IV ONE (09:45)
[2021-12-08] MEDS ORDERED: KETAMINE 50 MG/ML Syringe (ANEST) IV ONE (09:45)
[2021-12-08] MEDS ORDERED: DEXAMETHASONE 10 MG/ML VIAL ONE (09:45)
[2021-12-08] MEDS ORDERED: ePHEDrine 50 MG/5 ML SYRINGE (ANEST) IV ONE (09:45)
[2021-12-08] MEDS ORDERED: ONDANSETRON 4 MG/2 ML VIAL ONE (09:45)
[2021-12-08] MEDS ORDERED: GLYCOPYRROLATE 0.2 MG/ML VIAL IV ONE (09:45)
[2021-12-08] MEDS ORDERED: MEPERIDINE 25 MG/ML VIAL IV PRN (11:41)
[2021-12-08] MEDS ORDERED: METHOCARBAMOL 1,000 MG/10 ML VIAL IV PRN (11:41)
[2021-12-08] MEDS ORDERED: IPRATROPIUM/ALBUTEROL 3 ML AMPUL.NEB NEB PRN (11:41)
[2021-12-08] MEDS ORDERED: ACETAMINOPHEN 1,000 MG/100 ML BAG IV ONE (11:41)
[2021-12-08] MEDS ORDERED: ONDANSETRON 4 MG/2 ML VIAL IV PRN (11:41)
[2021-12-08] MEDS ORDERED: PROMETHAZINE 25 MG/ML VIAL IV PRN (11:41)
[2021-12-08] MEDS ORDERED: oxyCODONE HCL 5 MG TABLET PO PRN (12:07)
--- NOTE | 2021-12-08 12:07 | Operative Note ---
Brief Operative Note Date of procedure: 12/08/21 Pre-op diagnosis: Incisional hernia Post-op diagnosis: same Procedure: Open ventral hernia repair, advancement flap left side Grafts/Implants: Yes Anesthesia: GETA Findings: Large upper midline incisional hernia, left-sided port site hernia. Complications: none Surgeon: Glenroy Weber Estimated blood loss (cc): 50 Specimens Removed/Pathology: none sent Condition: stable Disposition: PACU Operative Note Operative Note: After all risk benefits and alternatives to the procedure were discussed with the patient at length he verbalized understanding and desire to continue the procedure. Patient was taken the main operating room placed upon the operative table. General anesthesia was induced over endotracheal tube. Patient's prepped and draped in the standard sterile surgical fashion. Surgical timeout was taken to verify patient and procedure being performed. Elliptical incision was made around the prior scar this was carried down through skin and subcutaneous tissue. The midline incision was then carried down through subcutaneous tissue into the abdominal cavity. It was opened through t he entirety of its incision and extended superiorly for 5 cm. Large amount of omentum was stuck in the hernia cavity and to the anterior abdominal wall, this was carefully taken down with blunt and electrocautery dissection. Once this was extensive lysis of adhesions which took 45 minutes was accomplished the anterior abdominal wall was fully mobile at the midline and the left-sided ostomy site hernias were all reduced into the abdomen. A large white towel was placed over the bowel the posterior fascia was opened and the posterior rectus space was dissected from the xiphoid down to the space of Retzius on both sides. This was done with electrocautery and blunt dissection. This allowed the midline fascia to come midline but did not allow enough room to fully cover the ostomy site hernia. Therefore a left-sided transversus abdominis release was then performed, the transverse abdominis was identified in the superior abdomen the posterior fascia was opened the transversalis muscle was transected to fully develop the space. This was carried superiorly from the rib cage down to the space of Retzius, this allowed full mobilization of the midline fascia and allowed the hernia site to be closed. The posterior fascia was then repaired using interrupted 3-0 Vicryl sutures and then closed with a running 2-0 Prolene suture. The tail was removed before the fascia was completely closed once the fascia was closed it was not under tension and everything came to the midline without difficulty. Next a 30 x 25 cm piece of mesh was placed over the posterior fascia it covered the fascial defects and went superiorly from the xiphoid process down to the pubic tubercle. [address] [place] drains were then placed into the posterior rectus space and the anterior fascia was then closed with a running looped PDS suture anterior fascia came together without difficulty. Due to the size of the midline hernia skin resection needed to be done and then the skin was closed with a running 4-0 Monocryl sutures. Skin glue dressings were applied. Drains were tacked into place with interrupted 3-0 nylon sutures. Once the skin glue dressings were dry abdominal binder was placed. The patient was then awakened from general anesthesia transported postanesthesia care unit awake alert in good condition.
[2021-12-08] MEDS: fentaNYL 100 MCG/2 ML VIAL IV PRN ×8 (12:47→13:18)
[2021-12-08] MEDS: HYDROmorphone 0.5 MG/0.5 ML SYRINGE IV PRN ×2 (13:44→16:15)
[2021-12-08] MEDS: LACTATED RINGERS 1,000 ML IV SCH ×3 (13:45→22:31)
[2021-12-08] MEDS: oxyCODONE HCL 5 MG TABLET PO PRN ×2 (17:24→21:38)
[2021-12-08] MEDS: HYDROmorphone 1 MG/ML SYRINGE IV PRN (22:25)
[2021-12-08] MEDS: ACETAMINOPHEN 325 MG TABLET PO PRN (22:59)
[2021-12-09] MEDS: oxyCODONE HCL 5 MG TABLET PO PRN ×5 (02:00→20:00)
[2021-12-09] MEDS: LACTATED RINGERS 1,000 ML IV SCH (02:04)
[2021-12-09 07:06] LABS: Basophils # (Auto) 0.02 K/mcL (0.00-0.30); Basophils % (Auto) 0.1 % (0.0-2.0); Eosinophils # (Auto) 0 K/mcL (0.00-0.70); Eosinophils % (Auto) 0 % (0.0-7.0); Hematocrit 41.2 % (40.1-51.0); Hemoglobin 13.3 g/dL (13.7-17.5); Lymphocytes # (Auto) 0.81 K/mcL (1.50-4.80); Lymphocytes % (Auto) 5.3 % (15.5-49.0); Mean Corpuscular HGB Conc 32.3 g/dL (31.0-36.0); Mean Platelet Volume 10.1 fL (7.4-10.4); Monocytes # (Auto) 1.68 K/mcL (0.10-0.90); Neutrophils % (Auto) 83.6 % (38.0-78.0); Platelet Count 282 K/mcL (140-440); RBC 4.63 M/mcL (4.63-6.08); Red Cell Distribution Width 12.7 % (11.5-14.5); WBC 15.3 K/mcL (4.5-11.0)
[2021-12-09] MEDS: ACETAMINOPHEN 325 MG TABLET PO PRN (07:17)
[2021-12-09 07:53] LABS: Blood Urea Nitrogen 20 mg/dL (8-23); Calcium 8.9 mg/dL (8.6-10.4); Carbon Dioxide 23 mmol/L (22-30); Chloride 103 mmol/L (96-108); Glomerular Filtration Rate 66; Glucose 112 mg/dL (70-105)
--- NOTE | 2021-12-09 07:57 | General Surgery Progress Note ---
SUBJECTIVE Subjective Patient information: Note initiated : 12/09/21 at 7:55 am Service Date, if different from initiated Date: [] Patient: Jean Larsen 75 y/o M admitted on 12/08/21 for Open Hernia Repair Ventral. Chief Complaint: [] Principal diagnosis: Status post component separation ventral hernia repair Interval history: Patient did well overnight, has been ambulatory. He is passing gas, his pain is better under control. Constitutional Vitals: Vital Signs Temp Pulse Resp BP Pulse Ox 97.9 F 80 18 137/84 92 12/09/21 07:17 12/09/21 03:40 12/09/21 07:22 12/09/21 06:55 12/09/21 06:55 Period Temp Pulse Resp BP Sys/Becerra Pulse Ox Last 24 Hr 97 F-98.3 F 65-92 16-26 135-172/71-98 90-100 Intake and Output 12/08/21 12/09/21 12/09/21 21:59 05:59 13:59 Intake Total 450 990 Output Total 368 445 270 Balance 82 545 -270 Weight 197 lb 2 oz Intake & Output: Intake & Output 12/08/21 12/09/21 12/09/21 21:59 05:59 13:59 Intake Total 450 990 Output Total 368 445 270 Balance 82 545 -270 Weight 197 lb 2 oz Intake: IV 350 870 Lactated Ringers 1,000 ml @ 100 350 870 mls/hr IV .Q10H [facility] Rx#: [id number] Oral 100 120 Output: Drainage 100 95 20 Left Abdomen 65 40 Right Abdomen 35 55 20 Drainage 68 25 Left Abdomen 28 25 Right Abdomen 40 Void Amount 200 350 225 Other: Urine Appearance Clear Clear Clear Urine Color Dark Yellow Dark Yellow Straw Urine Odor Normal Normal # Voids 1 General appearance: cooperative and no acute distress GI/Abdominal GI/Abdominal exam: Present soft and tenderness; Absent distended or rebound Additional comments: Incision is clean dry and intact. Serosanguineous NORMA output. A/P Assessment and plan (1) Incisional hernia: Assessment and plan: Postop day #1 status post incisional hernia repair with mesh. Patient is progressing as expected. Regular diet, continue ambulation, restart home medication. Status: Acute Time Spent With Patient Time: Total time spent is greater than 50% in coordination of care (as documented) at patient's floor/unit and/or counseling patient:
[2021-12-09] MEDS: amLODIPine 5 MG TABLET PO SCH (08:46)
[2021-12-09] MEDS: LOSARTAN 50 MG TABLET PO SCH (08:46)
[2021-12-09] MEDS: ATORVASTATIN 10 MG TABLET PO SCH (20:00)
[2021-12-09] MEDS: HYDROmorphone 1 MG/ML SYRINGE IV PRN (21:39)
[2021-12-10] MEDS: oxyCODONE HCL 5 MG TABLET PO PRN ×5 (00:05→20:43)
[2021-12-10 07:03] LABS: Basophils # (Auto) 0.07 K/mcL (0.00-0.30); Basophils % (Auto) 0.5 % (0.0-2.0); Eosinophils # (Auto) 0.04 K/mcL (0.00-0.70); Eosinophils % (Auto) 0.3 % (0.0-7.0); Hemoglobin 13.6 g/dL (13.7-17.5); Lymphocytes # (Auto) 1.57 K/mcL (1.50-4.80); Lymphocytes % (Auto) 10.9 % (15.5-49.0); Mean Cell Volume 89.2 fL (80.0-100.0); Mean Corpuscular HGB Conc 32.4 g/dL (31.0-36.0); Mean Platelet Volume 10.5 fL (7.4-10.4); Monocytes # (Auto) 1.54 K/mcL (0.10-0.90); Monocytes % (Auto) 10.7 % (1.0-12.0); Neutrophils % (Auto) 77.6 % (38.0-78.0); Platelet Count 299 K/mcL (140-440); RBC 4.71 M/mcL (4.63-6.08); WBC 14.4 K/mcL (4.5-11.0)
[2021-12-10 07:17] LABS: Blood Urea Nitrogen 27 mg/dL (8-23); Calcium 9.7 mg/dL (8.6-10.4); Carbon Dioxide 24 mmol/L (22-30); Chloride 101 mmol/L (96-108); Glomerular Filtration Rate 42; Glucose 114 mg/dL (70-105)
[2021-12-10] MEDS: LOSARTAN 50 MG TABLET PO SCH (08:38)
[2021-12-10] MEDS: amLODIPine 5 MG TABLET PO SCH (08:38)
--- NOTE | 2021-12-10 10:10 | General Surgery Progress Note ---
SUBJECTIVE Subjective Patient information: Note initiated : 12/10/21 at 10:07 am Service Date, if different from initiated Date: [] Patient: Jean Larsen 75 y/o M admitted on 12/08/21 for Open Hernia Repair Ventral. Chief Complaint: [] Principal diagnosis: Status post component separation ventral hernia repair Interval history: POD 2 s/p incisinal hernia repair. Ambulating, no flatus, no BM. Pain well controlled Constitutional Vitals: Vital Signs Temp Pulse Resp BP Pulse Ox 99.2 F H 84 20 160/77 92 12/10/21 06:55 12/10/21 03:50 12/10/21 06:55 12/10/21 06:55 12/10/21 06:55 Period Temp Pulse Resp BP Sys/Becerra Pulse Ox Last 24 Hr 97.6 F-99.2 F 77-87 16-20 129-160/67-88 90-94 Intake and Output 12/09/21 12/10/21 12/10/21 21:59 05:59 13:59 Intake Total 200 50 400 Output Total 195 65 Balance 5 -15 400 Weight 198 lb 12.8 oz Intake & Output: Intake & Output 12/09/21 12/10/21 12/10/21 21:59 05:59 13:59 Intake Total 200 50 400 Output Total 195 65 Balance 5 -15 400 Weight 198 lb 12.8 oz Intake: Oral 200 50 400 Output: Drainage 70 65 Left Abdomen 30 35 Right Abdomen 40 30 Void Amount 125 Other: Meal Breakfast Percent of Meal Consumed 100% Urine Appearance Clear Clear Urine Color Dark Yellow Straw Urine Odor Normal # Voids 1 General appearance: cooperative and no acute distress GI/Abdominal GI/Abdominal exam: Present soft and tenderness (appropriate tenderness); Absent distended Additional comments: Inc c/d/i, serous drainage from drains. A/P Assessment and plan (1) Incisional hernia: Plan: awaiting return of bowel function cont reg diet IVF due to sl increase cr restarted all home medications check cbc/bmp tomorrow Status: Acute Time Spent With Patient Time: Total time spent is greater than 50% in coordination of care (as documented) at patient's floor/unit and/or counseling patient:
[2021-12-10] MEDS: ONDANSETRON 4 MG/2 ML VIAL IV PRN ×2 (10:18→16:24)
[2021-12-10] MEDS: DEXTROSE 5%-1/2NS 1,000 ML IV SCH ×2 (10:18→23:21)
[2021-12-10] MEDS: CALCIUM CARBONATE 500 MG TAB.CHEW CHEWED PRN (12:40)
[2021-12-10] MEDS: ATORVASTATIN 10 MG TABLET PO SCH (20:42)
[2021-12-10] MEDS: ACETAMINOPHEN 325 MG TABLET PO PRN (23:52)
[2021-12-11] MEDS: oxyCODONE HCL 5 MG TABLET PO PRN ×2 (00:54→18:46)
[2021-12-11] MEDS: HYDROmorphone 1 MG/ML SYRINGE IV PRN ×4 (03:03→22:20)
[2021-12-11] MEDS: ONDANSETRON 4 MG/2 ML VIAL IV PRN ×2 (03:03→22:16)
[2021-12-11] MEDS: METOCLOPRAMIDE 10 MG/2 ML VIAL IV SCH ×6 (03:25→23:55)
[2021-12-11] MEDS: MAGNESIUM HYDROXIDE 30 ML ORAL.SUSP PO SCH ×4 (03:26→21:18)
[2021-12-11] MEDS ORDERED: METOCLOPRAMIDE 10 MG/2 ML VIAL ONE (03:31)
[2021-12-11 06:04] LABS: Basophils # (Auto) 0.03 K/mcL (0.00-0.30); Basophils % (Auto) 0.2 % (0.0-2.0); Eosinophils # (Auto) 0.01 K/mcL (0.00-0.70); Eosinophils % (Auto) 0.1 % (0.0-7.0); Hematocrit 40.6 % (40.1-51.0); Hemoglobin 12.8 g/dL (13.7-17.5); Lymphocytes # (Auto) 0.67 K/mcL (1.50-4.80); Lymphocytes % (Auto) 4.6 % (15.5-49.0); Mean Cell Volume 90.8 fL (80.0-100.0); Mean Corpuscular HGB Conc 31.5 g/dL (31.0-36.0); Mean Platelet Volume 10.2 fL (7.4-10.4); Monocytes # (Auto) 1.27 K/mcL (0.10-0.90); Monocytes % (Auto) 8.7 % (1.0-12.0); Neutrophils % (Auto) 86.4 % (38.0-78.0); Platelet Count 277 K/mcL (140-440); RBC 4.47 M/mcL (4.63-6.08); Red Cell Distribution Width 12.9 % (11.5-14.5); WBC 14.6 K/mcL (4.5-11.0)
[2021-12-11 06:33] LABS: Blood Urea Nitrogen 24 mg/dL (8-23); Calcium 9.7 mg/dL (8.6-10.4); Carbon Dioxide 23 mmol/L (22-30); Chloride 99 mmol/L (96-108); Glomerular Filtration Rate 49; Glucose 161 mg/dL (70-105)
--- NOTE | 2021-12-11 06:49 | XRay Report ---
INDICATION: Bloating TECHNIQUE: Supine abdomen. COMPARISON: Previous CT scan dated 10/11/2021 FINDINGS: Surgical drains are present. There is gas throughout the colon with prominent fecal material in the descending colon. Ascending and proximal transverse colon are mildly distended. Ascending colon measures approximately 9 cm in maximum cross-sectional diameter. There is very little gas in the sigmoid colon or rectum. This is nonspecific. There is small bowel gas. No distended small bowel. There is no pneumatosis. No focal abnormality IMPRESSION: 1. Prominent gas-filled colon with very little gas in the sigmoid colon or rectum. Ascending colon is prominent and measures approximately 9 cm in cross-sectional diameter 2. There is small bowel gas. No small bowel distention. No evidence for mechanical small bowel obstruction Interpreted and Authenticated by: Didier Yates 12/11/21
[2021-12-11] MEDS: LOSARTAN 50 MG TABLET PO SCH (09:20)
[2021-12-11] MEDS: amLODIPine 5 MG TABLET PO SCH (09:20)
--- NOTE | 2021-12-11 09:53 | General Surgery Progress Note ---
SUBJECTIVE Subjective Patient information: Note initiated : 12/11/21 at 9:50 am Service Date, if different from initiated Date: [] Patient: Jean Larsen 75 y/o M admitted on 12/08/21 for Open Hernia Repair Ventral. Chief Complaint: [] Principal diagnosis: Status post component separation ventral hernia repair Interval history: Patient with a bout of emesis overnight, he reports he feels better this morning tolerated his diet this morning. KUB shows gaseous distention of colon, no small bowel dilatation. Patient has been ambulatory. Constitutional Vitals: Vital Signs Temp Pulse Resp BP Pulse Ox 99 F 93 H 16 137/84 91 12/11/21 07:02 12/11/21 03:05 12/11/21 07:02 12/11/21 07:02 12/11/21 07:02 Period Temp Pulse Resp BP Sys/Becerra Pulse Ox Last 24 Hr 97.4 F-99 F 93-103 16-24 113-149/68-84 91-93 Intake and Output 12/10/21 12/11/21 12/11/21 21:59 05:59 13:59 Intake Total 610 1029 Output Total 0 40 Balance 610 989 Weight 200 lb 1.6 oz Intake & Output: Intake & Output 12/10/21 12/11/21 12/11/21 21:59 05:59 13:59 Intake Total 610 1029 Output Total 0 40 Balance 610 989 Weight 200 lb 1.6 oz Intake: IV 979 Dextrose 5%-1/2Ns IV Solution 1 979 ,000 ml @ 75 mls/hr IV .[id number] [facility] Rx#:[id number] Oral 610 50 Output: Drainage 40 Left Abdomen 20 Right Abdomen 20 # of times incontinent of urine 0 Other: Meal 2x prune juice, & peach cup x1 Percent of Meal Consumed 100% Feeding Ability Independent # Voids 1 1 # Unmeasured Emesis 1 General appearance: cooperative and no acute distress GI/Abdominal GI/Abdominal exam: Present normal bowel sounds, soft and distended; Absent tenderness Additional comments: Incision is clean dry and intact A/P Assessment and plan (1) Incisional hernia: Plan: Postop day #3 status post component separation incisional hernia repair, ostomy site hernia repair. Patient is doing as expected, no bowel movement, no flatus. Awaiting return of bowel function. Continue ambulation, continue IV fluids. Anticipate discharge with no special needs once bowel function returns. Status: Acute Time Spent With Patient Time: Total time spent is greater than 50% in coordination of care (as documented) at patient's floor/unit and/or counseling patient:
[2021-12-11] MEDS: DEXTROSE 5%-1/2NS 1,000 ML IV SCH ×2 (12:43→23:54)
[2021-12-11] MEDS: CALCIUM CARBONATE 500 MG TAB.CHEW CHEWED PRN (15:41)
[2021-12-11] MEDS: ATORVASTATIN 10 MG TABLET PO SCH (21:17)
[2021-12-11] MEDS: IBUPROFEN 600 MG TABLET PO PRN (21:24)
[2021-12-12] MEDS: MAGNESIUM HYDROXIDE 30 ML ORAL.SUSP PO SCH ×4 (04:32→20:21)
[2021-12-12] MEDS: oxyCODONE HCL 5 MG TABLET PO PRN ×3 (04:42→23:25)
[2021-12-12] MEDS: METOCLOPRAMIDE 10 MG/2 ML VIAL IV SCH ×4 (05:43→23:25)
[2021-12-12 06:14] LABS: Basophils # (Auto) 0.05 K/mcL (0.00-0.30); Basophils % (Auto) 0.4 % (0.0-2.0); Eosinophils # (Auto) 0.07 K/mcL (0.00-0.70); Eosinophils % (Auto) 0.6 % (0.0-7.0); Hematocrit 38.7 % (40.1-51.0); Hemoglobin 12.3 g/dL (13.7-17.5); Lymphocytes # (Auto) 1.23 K/mcL (1.50-4.80); Lymphocytes % (Auto) 9.8 % (15.5-49.0); Mean Cell Volume 90.2 fL (80.0-100.0); Mean Corpuscular HGB Conc 31.8 g/dL (31.0-36.0); Mean Platelet Volume 10.3 fL (7.4-10.4); Monocytes # (Auto) 1.47 K/mcL (0.10-0.90); Monocytes % (Auto) 11.7 % (1.0-12.0); Neutrophils % (Auto) 77.5 % (38.0-78.0); Platelet Count 284 K/mcL (140-440); RBC 4.29 M/mcL (4.63-6.08); WBC 12.6 K/mcL (4.5-11.0)
[2021-12-12 06:27] LABS: Blood Urea Nitrogen 26 mg/dL (8-23); Calcium 9.5 mg/dL (8.6-10.4); Carbon Dioxide 29 mmol/L (22-30); Chloride 99 mmol/L (96-108); Glomerular Filtration Rate 49; Glucose 128 mg/dL (70-105)
[2021-12-12] MEDS: DEXTROSE 5%-1/2NS 1,000 ML IV SCH ×4 (07:01→20:29)
--- NOTE | 2021-12-12 07:33 | XRay Report ---
CLINICAL INFORMATION: ABD distention COMPARISON: None. FINDINGS: Surgical drain overlies the mid abdomen and pelvis as before. The colon is moderately dilated to the mid sigmoid level in the region of surgical clips. The distal sigmoid and rectum contain no gas. Findings suggestive of mid sigmoid obstruction. No free air, soft tissue mass or organomegaly. There are 3-4 known urinary bladder stones overlying the right true pelvis. IMPRESSION: Suspect mid sigmoid obstruction possibly due a mild stricture. Slight improvement from yesterday's exam. Consider Hypaque enema to define. Urinary bladder stones-stable Interpreted and Authenticated by: Didier Maddox 12/12/21
[2021-12-12] MEDS: HYDROmorphone 1 MG/ML SYRINGE IV PRN ×2 (07:41→17:23)
[2021-12-12] MEDS: LOSARTAN 50 MG TABLET PO SCH (08:52)
[2021-12-12] MEDS: amLODIPine 5 MG TABLET PO SCH (08:52)
[2021-12-12] MEDS: ONDANSETRON 4 MG/2 ML VIAL IV PRN (12:50)
[2021-12-12] MEDS: CALCIUM CARBONATE 500 MG TAB.CHEW CHEWED PRN (15:27)
--- NOTE | 2021-12-12 18:02 | General Surgery Progress Note ---
SUBJECTIVE Subjective Patient information: Note initiated : 12/12/21 at 6:00 pm Service Date, if different from initiated Date: [] Patient: Jean Larsen 75 y/o M admitted on 12/08/21 for Open Hernia Repair Ventral. Chief Complaint: [] Principal diagnosis: Status post component separation ventral hernia repair Interval history: feels better, although still with some nausea and emisis. +flatus and small bowel movement today KUB improved Constitutional Vitals: Vital Signs Temp Pulse Resp BP Pulse Ox 98.3 F 63 16 140/80 92 12/12/21 16:00 12/12/21 04:00 12/12/21 16:00 12/12/21 16:00 12/12/21 16:00 Period Temp Pulse Resp BP Sys/Becerra Pulse Ox Last 24 Hr 97.7 F-98.7 F 63-96 16-20 140-163/80-86 90-96 Intake and Output 12/12/21 12/12/21 12/12/21 05:59 13:59 21:59 Intake Total 1120 1840 250 Output Total 120 181 232 Balance 1000 1659 18 Intake & Output: Intake & Output 12/12/21 12/12/21 12/12/21 05:59 13:59 21:59 Intake Total 1120 1840 250 Output Total 120 181 232 Balance 1000 1659 18 Intake: IV 1000 1000 Dextrose 5%-1/2Ns IV Solution 1 1000 1000 ,000 ml @ 100 mls/hr IV .Q10H [facility] Rx#:[id number] Oral 120 240 250 GI Tube Flush 600 Output: Drainage 30 Left Abdomen 20 Right Abdomen 10 Drainage 70 32 Left Abdomen 45 20 Right Abdomen 25 12 Void Amount 50 150 200 # of times incontinent of urine 1 Other: Meal Breakfast Percent of Meal Consumed 100% Feeding Ability Independent Urine Appearance Clear Clear Clear Urine Color Bright Yellow Straw Straw Urine Odor Normal Normal Normal Stool Size Smear Small Smear Stool Color Brown Brown Brown Stool Consistency Loose # Voids 1 # Unmeasured Emesis 1 # Bowel Movements 1 General appearance: cooperative and no acute distress GI/Abdominal GI/Abdominal exam: Present soft and distended (less distention); Absent tenderness Additional comments: inc c/d/i, NORMA serous output A/P Assessment and plan (1) Incisional hernia: Plan: slowly improving awaiting full return of bowel function minimize narcotics, ambulation, gum chewing Status: Acute Time Spent With Patient Time: Total time spent is greater than 50% in coordination of care (as documented) at patient's floor/unit and/or counseling patient:
[2021-12-12] MEDS: ATORVASTATIN 10 MG TABLET PO SCH (20:19)
[2021-12-13] MEDS: DEXTROSE 5%-1/2NS 1,000 ML IV SCH ×2 (02:38→10:23)
[2021-12-13] MEDS: MAGNESIUM HYDROXIDE 30 ML ORAL.SUSP PO SCH ×3 (05:36→09:53)
[2021-12-13] MEDS: METOCLOPRAMIDE 10 MG/2 ML VIAL IV SCH ×2 (05:41→12:03)
[2021-12-13 07:44] LABS: Basophils # (Auto) 0.06 K/mcL (0.00-0.30); Basophils % (Auto) 0.5 % (0.0-2.0); Eosinophils # (Auto) 0.22 K/mcL (0.00-0.70); Hematocrit 36.1 % (40.1-51.0); Hemoglobin 11.5 g/dL (13.7-17.5); Lymphocytes # (Auto) 1.38 K/mcL (1.50-4.80); Lymphocytes % (Auto) 12.3 % (15.5-49.0); Mean Cell Volume 89.8 fL (80.0-100.0); Mean Corpuscular HGB Conc 31.9 g/dL (31.0-36.0); Mean Platelet Volume 10.2 fL (7.4-10.4); Monocytes # (Auto) 1.39 K/mcL (0.10-0.90); Monocytes % (Auto) 12.4 % (1.0-12.0); Neutrophils % (Auto) 72.8 % (38.0-78.0); Platelet Count 284 K/mcL (140-440); RBC 4.02 M/mcL (4.63-6.08); Red Cell Distribution Width 12.9 % (11.5-14.5); WBC 11.2 K/mcL (4.5-11.0)
[2021-12-13] MEDS: LOSARTAN 50 MG TABLET PO SCH (07:50)
[2021-12-13] MEDS: amLODIPine 5 MG TABLET PO SCH (07:50)
[2021-12-13 07:53] LABS: Blood Urea Nitrogen 21 mg/dL (8-23); Calcium 8.8 mg/dL (8.6-10.4); Carbon Dioxide 29 mmol/L (22-30); Chloride 98 mmol/L (96-108); Glomerular Filtration Rate 54; Glucose 101 mg/dL (70-105)
[2021-12-13] MEDS: IBUPROFEN 600 MG TABLET PO PRN (08:07)
--- NOTE | 2021-12-13 08:17 | Discharge Summary ---
Discharge Provider Provider IMPORTANT FOLLOW-UP INFORMATION FOR PCP: Patient information: Note initiated : 12/13/21 at 8:16 am Service Date, if different from initiated Date: [] Patient: Jean Larsen 75 y/o M admitted on 12/08/21 for Open Hernia Repair Ventral. Chief Complaint: [] Date of admission: 12/08/21 07:32 Discharge date: 12/13/21 Primary care physician: Migdalia Lei COURSE Hospital Course Hospital course: This is a pleasant 75-year-old gentleman who was admitted for a open component separation incisional hernia repair with ostomy site hernia. Postop patient did well, developed a postoperative ileus which is now resolved. Patient is ambulatory, tolerating regular diet and is ready for discharge. Discharge diagnosis: Status post incisional hernia repair Time Spent with Patient Time attestation: Total time spent providing and/or coordinating discharge services: Time spent: Less than 30 minutes Physical Examination Vital Signs Vital signs: Temp Pulse Resp BP Pulse Ox 97.8 F 85 12 161/85 91 12/13/21 07:15 12/13/21 07:15 12/13/21 07:15 12/13/21 07:15 12/13/21 07:15 Discharge Plan Patient/Caregiver Discharge Instructions Activity: increase activity as tolerated Diet: Regular Diet Activity Restrictions/Additional Instructions: Empty drain and record drain output twice daily. Follow-up with me in 1 week. Activity as tolerated. Abdominal binder as needed for comfort. Prescriptions: Continued atorvastatin 10 mg Tablet 10 mg PO QHS 0RF amlodipine 5 mg Tablet 5 mg PO QDAY 0RF losartan 100 mg tablet 50 mg PO QDAY 0RF ibuprofen 800 mg tablet 800 mg PO TID PRN (Reason: pain) Qty: 60 0RF acetaminophen [Tylenol 8 Hour] 650 mg tablet extended release 650 mg PO Q8H PRN (Reason: pain) Qty: 60 0RF Follow Up Plan Follow up with: Glenroy Weber MD [Physician] - Patient Disposition: Home, Self-Care Overall status at discharge: patient is progressing back to baseline Discharge Orders: Discharge Order (Routine); Ordered 12/13/21 Ordered By: Glenroy Weber Pending Pending Pending: Resuscitation Status Resuscitate (Full Code) Diet Regular Diet Start SunDec 09 0754 Acetaminophen (Acetaminophen 325 Mg Tablet) 650 mg PO Q6HP PRN; Protocol PRN Reason: Per Pain Protocol/Fever > 101 Last Admin: 12/10/21 23:52 Dose: 650 mg Documented by: Admin: 12/09/21 07:17 Dose: 650 mg Documented by: Admin: 12/08/21 22:59 Dose: 650 mg Documented by: MALIA Amlodipine Besylate (Amlodipine 5 Mg Tablet) [address] [facility] Last Admin: 12/13/21 07:50 Dose: 5 mg Documented by: Admin: 12/12/21 08:52 Dose: 5 mg Documented by: Admin: 12/11/21 09:20 Dose: 5 mg Documented by: Admin: 12/10/21 08:38 Dose: 5 mg Documented by: Admin: 12/09/21 08:46 Dose: 5 mg Documented by: BENJAMIN Atorvastatin Calcium (Atorvastatin 10 Mg Tablet) [address] [facility] Last Admin: 12/12/21 20:19 Dose: 10 mg Documented by: Admin: 12/11/21 21:17 Dose: 10 mg Documented by: Admin: 12/10/21 20:42 Dose: 10 mg Documented by: Admin: 12/09/21 20:00 Dose: 10 mg Documented by: MALIA Calcium Carbonate/Glycine (Calcium Carbonate 500 Mg Tab.Chew) 500 mg CHEWED Q4HP PRN PRN Reason: Dyspepsia Last Admin: 12/12/21 15:27 Dose: 500 mg Documented by: Admin: 12/11/21 15:41 Dose: 500 mg Documented by: Admin: 12/10/21 12:40 Dose: 500 mg Documented by: BENJAMIN Hydromorphone HCl (Hydromorphone 1 Mg/Ml Syringe) 1 - 2 mg IV Q2HP PRN; Protocol PRN Reason: Per Pain Protocol Last Admin: 12/12/21 17:23 Dose: 1 mg Documented by: Admin: 12/12/21 07:41 Dose: 1 mg Documented by: Admin: 12/11/21 22:20 Dose: 1 mg Documented by: Admin: 12/11/21 07:06 Dose: 1 mg Documented by: Admin: 12/11/21 04:07 Dose: 1 mg Documented by: Admin: 12/11/21 03:03 Dose: 1 mg Documented by: Admin: 12/09/21 21:39 Dose: 1 mg Documented by: Admin: 12/08/21 22:25 Dose: 1 mg Documented by: MALIA Dextrose/Sodium Chloride (Dextrose 5%-1/2ns Iv Solution) 1,000 mls @ 100 mls/hr IV .Q10H [facility] Last Admin: 12/13/21 02:38 Dose: Not Given Documented by: Admin: 12/12/21 20:29 Dose: 100 mls/hr Documented by: Infusion: 12/12/21 20:09 Dose: 100 mls/hr Documented by: Admin: 12/12/21 17:23 Dose: Not Given Documented by: Admin: 12/12/21 10:09 Dose: 100 mls/hr Documented by: Infusion: 12/12/21 09:54 Dose: 100 mls/hr Documented by: Admin: 12/12/21 07:01 Dose: Not Given Documented by: Admin: 12/11/21 23:54 Dose: 100 mls/hr Documented by: Infusion: 12/11/21 22:43 Dose: 100 mls/hr Documented by: Admin: 12/11/21 12:43 Dose: 100 mls/hr Documented by: FREDDIE Ibuprofen (Ibuprofen 600 Mg Tablet) 600 mg PO QIDP PRN; Protocol PRN Reason: Per Pain Protocol/Fever > 101 Last Admin: 12/13/21 08:07 Dose: 600 mg Documented by: Admin: 12/11/21 21:24 Dose: 600 mg Documented by: PEYMAN Losartan Potassium (Losartan 50 Mg Tablet) [address] [facility] Last Admin: 12/13/21 07:50 Dose: 50 mg Documented by: Admin: 12/12/21 08:52 Dose: 50 mg Documented by: Admin: 12/11/21 09:20 Dose: 50 mg Documented by: Admin: 12/10/21 08:38 Dose: 50 mg Documented by: Admin: 12/09/21 08:46 Dose: 50 mg Documented by: BENJAMIN Magnesium Hydroxide (Magnesium Hydroxide 30 Ml Oral.Susp) [address] [facility] Last Admin: 12/13/21 05:41 Dose: 30 ml Documented by: Admin: 12/12/21 20:21 Dose: 30 ml Documented by: Admin: 12/12/21 15:28 Dose: 30 ml Documented by: Admin: 12/12/21 08:52 Dose: 30 ml Documented by: Admin: 12/12/21 04:32 Dose: 30 ml Documented by: Admin: 12/11/21 21:18 Dose: 30 ml Documented by: Admin: 12/11/21 15:41 Dose: 30 ml Documented by: Admin: 12/11/21 09:20 Dose: 30 ml Documented by: Admin: 12/11/21 03:26 Dose: Not Given Documented by: MALIA Metoclopramide HCl (Metoclopramide 10 Mg/2 Ml Vial) [address] [facility] Last Admin: 12/13/21 05:41 Dose: 10 mg Documented by: Admin: 12/12/21 23:25 Dose: 10 mg Documented by: Admin: 12/12/21 17:22 Dose: 10 mg Documented by: Admin: 12/12/21 12:50 Dose: 10 mg Documented by: Admin: 12/12/21 05:43 Dose: 10 mg Documented by: Admin: 12/11/21 23:55 Dose: 10 mg Documented by: Admin: 12/11/21 17:52 Dose: 10 mg Documented by: Admin: 12/11/21 12:44 Dose: 10 mg Documented by: Admin: 12/11/21 09:20 Dose: 10 mg Documented by: FREDDIE Ondansetron HCl (Ondansetron 4 Mg/2 Ml Vial) 4 mg IV Q6HP PRN PRN Reason: Nausea And Vomiting Last Admin: 12/12/21 12:50 Dose: 4 mg Documented by: Admin: 12/11/21 22:16 Dose: 4 mg Documented by: [email or web address] Admin: 12/11/21 03:03 Dose: 4 mg Documented by: Admin: 12/10/21 16:24 Dose: 4 mg Documented by: Admin: 12/10/21 10:18 Dose: 4 mg Documented by: BENJAMIN Oxycodone HCl (Oxycodone Hcl 5 Mg Tablet) 10 mg PO Q4HP PRN; Protocol PRN Reason: Per Pain Protocol Last Admin: 12/12/21 23:25 Dose: 10 mg Documented by: Admin: 12/12/21 15:27 Dose: 10 mg Documented by: Admin: 12/12/21 04:42 Dose: 10 mg Documented by: Admin: 12/11/21 18:46 Dose: 10 mg Documented by: Admin: 12/11/21 00:54 Dose: 10 mg Documented by: Admin: 12/10/21 20:43 Dose: 10 mg Documented by: Admin: 12/10/21 16:16 Dose: 10 mg Documented by: Admin: 12/10/21 08:37 Dose: 10 mg Documented by: Admin: 12/10/21 04:07 Dose: 10 mg Documented by: Admin: 12/10/21 00:05 Dose: 10 mg Documented by: Admin: 12/09/21 20:00 Dose: 10 mg Documented by: Admin: 12/09/21 15:26 Dose: 10 mg Documented by: Admin: 12/09/21 10:42 Dose: 10 mg Documented by: Admin: 12/09/21 06:06 Dose: 10 mg Documented by: Admin: 12/09/21 02:00 Dose: 10 mg Documented by: Admin: 12/08/21 21:38 Dose: 10 mg Documented by: Admin: 12/08/21 17:24 Dose: 10 mg Documented by: BENJAMIN Shift Summary 12/13/21 04:21 Shift Summary by Chantelle Avila Primary Diagnosis: Open hernia repair ventral w/ mesh Registration Status: Inpatient Day of Hospitalization: 12/08 Date of Surgery (if applicable): 12/08-S/P component separation ventral hernia repair Interventions (wounds, diuresis, etc): Midline incision with abdominal binder in place. NORMA x2 draining serosanguineous drainage; slight drainage noted around incision sites; PRN pain meds; Pt nauseous, but no emesis this shift. Vital Signs with Trends: VSS on RA. Elevated BP , is on antihypertensives. Neuro/Mental Status: A&O x4 Meds (abo, pain, BP, etc): Oxy x2 with good results Lines/Tubes: IV LAC D5 1/2 NS@100ml/hr; R and L NORMA's are draining moderate amounts this shift; midline abdominal incision closed with dermabond and Abd binder in use. O2, liter flow/saturations: VSS on RA Lab/Rad results: Date of last BM: Pt is passing flatus, no BM this shift; did continue scheduled MOM Elimination (remove Hawkins within 24h if appropriate): Voiding per urinal in the BR with minimal output which has been his baseline. Recommendations/questions for MD: Activity: Up with SBA ; Ambulated with SBA in hallways on this shift. Expected date of discharge: TBD Discharge Plan (needs, disposition, etc): Return home upon d/c. Initialized on 12/13/21 04:21 - END OF NOTE
== END 2021-12-13 13:40 | disposition home or self-care (01) | DRG 355 ==
LOC: MEDSUR 07:32
PROVIDERS: ADMIT Surgery; ATTEND Surgery